=== PATIENT | female | born 1955 | race Caucasian/White ===

== ENCOUNTER → 2016-07-28 16:52 | Outpatient (CLI) | payer MEDICAID ==
[2014-01-20 04:26] VITALS: BMI 20.7
[~2016-07-28 16:52] MED LIST: BACTRIM DS TABL1 TAB PO; HYDROCODONE-APA1 TAB PO
== END | disposition home or self-care (01) ==
LOC: D.MAMMO 07-14 09:30 → D.US 07-14 10:30 → D.MAMMO 07-17 08:30 → D.US 07-17 09:30 → D.MAMMO 13:00
DX: R92.8 Other abnormal and inconclusive findings on diagnostic imaging of breast (principal)

== ENCOUNTER → 2018-07-28 08:40 | Outpatient (CLI) | payer OTHER ==
[2014-01-20 04:26] VITALS: BMI 20.7
== END | disposition home or self-care (01) ==
LOC: D.CT 08:40
DX: J44.9 Chronic obstructive pulmonary disease, unspecified (principal)

== ENCOUNTER 2018-11-27 17:02 | Emergency (ER) | payer OTHER ==
[~2018-11-27] VITALS: Ht 175.3 cm; Wt 52.3 kg
[2018-11-27 17:03] VITALS: Ht 175.3 cm; Wt 52.3 kg
[2018-11-27] MEDS ORDERED: BUSPIRONE HCL30 MG PO (17:05)
[2018-11-27] MEDS ORDERED: DIFLUCAN200 MG PO (17:05)
[2018-11-27] MEDS ORDERED: CELEXA40 MG PO (17:06)
[2018-11-27 18:14] LABS: BASOPHILS 0.4 % (0-2); EOSINOPHILS 1.6 % (0-7); HEMOGLOBIN 12.9 g/dL (12-16); IMMATURE GRANULOCYTES 0.1 % (0-5); LYMPHOCYTES 25.5 % (15-50); MCH 30.9 pg (26.0-34.0); MCHC 34.9 g/dL (31.0-37.0); MCV 88.5 fL (80.0-100.0); MEAN PLATELET VOLUME 9.4 fL (7.4-10.4); MONOCYTES 7.9 % (2-11); NEUTROPHILS 64.5 % (40-80); PLATELET COUNT 185 10x3/uL (130-400); RBC 4.18 10x6/uL (4.00-5.40); RDW 14.3 % (11.5-14.5); WBC 8.3 10x3/uL (4.8-10.8)
[2018-11-27 18:30] LABS: ALBUMIN 3.8 g/dL (3.4-5.0); ALKALINE PHOSPHATASE 63 U/L (46-116); ALT (SGPT) 27 U/L (10-68); BILIRUBIN - TOTAL 1.49 mg/dL (0.2-1.3); CALC OSMOLALITY 260 mosm/kg (275-300); CALCIUM 9.1 mg/dL (8.5-10.1); CARBON DIOXIDE 24.8 mmol/L (21.0-32.0); CHLORIDE - SERUM 97 mmol/L (98-107); CREATININE - SERUM 0.8 mg/dL (0.6-1.3); GLUCOSE 99 mg/dL (74-106); POTASSIUM - SERUM 3.4 mmol/L (3.5-5.1); SODIUM 129 mmol/L (136-145); UREA NITROGEN 17 mg/dL (7-18); eGFR NON AFRICAN AMERICAN 76 mL/min (90-120)
[2018-11-27 19:36] LABS: APPEARANCE CLEAR (CLEAR); BILIRUBIN NEGATIVE (NEGATIVE); COLOR STRAW (YELLOW); GLUCOSE NEGATIVE (NEGATIVE); KETONE NEGATIVE (NEGATIVE); NITRITE POSITIVE (NEGATIVE); PROTEIN NEGATIVE (NEGATIVE); SPECIFIC GRAVITY 1.005 (1.005-1.020); UROBILINOGEN NORMAL (NORMAL)
[2018-11-27 19:38] LABS: BACTERIA FEW /hpf (NONE SEEN); RED CELLS - URINE 0-5 /hpf (0-5)
[2018-11-27 20:06] LABS: UDS - AMPHET POSITIVE QUAL (NEGATIVE); UDS - BARB NEGATIVE QUAL (NEGATIVE); UDS - BENZO NEGATIVE QUAL (NEGATIVE); UDS - COCAINE NEGATIVE QUAL (NEGATIVE); UDS - OPIATE NEGATIVE QUAL (NEGATIVE); UDS - PCP NEGATIVE QUAL (NEGATIVE); UDS - THC NEGATIVE QUAL (NEGATIVE)
[2018-11-27] MEDS ORDERED: CIPRO500 MG PO (20:08)
[2018-11-27 22:22] VITALS: BP 139/96
== END 2018-11-27 22:08 | disposition home or self-care (01) ==
LOC: D.ER 17:02
PROVIDERS: Emergency Medicine
DX: R45.851 Suicidal ideations (principal); F32.9 Major depressive disorder, single episode, unspecified; F15.10 Other stimulant abuse, uncomplicated; F22 Delusional disorders

== ENCOUNTER 2018-12-09 15:07 | Inpatient (IN) | payer OTHER, MEDICAID ==
[~2018-12-09 15:07] MED LIST changes: +BUSPIRONE HCL30 MG PO; +CELEXA40 MG PO; +CIPRO500 MG PO; +DIFLUCAN200 MG PO
[2018-12-09] MEDS ORDERED: DICLOFENAC SODI50 MG PO (15:14)
[2018-12-09 15:46] LABS: BASOPHILS 0.3 % (0-2); EOSINOPHILS 0.5 % (0-7); HEMOGLOBIN 11.9 g/dL (12-16); IMMATURE GRANULOCYTES 0.3 % (0-5); LYMPHOCYTES 12.4 % (15-50); MCH 30.7 pg (26.0-34.0); MCV 90.4 fL (80.0-100.0); NEUTROPHILS 83.5 % (40-80); RBC 3.87 10x6/uL (4.00-5.40); WBC 7.8 10x3/uL (4.8-10.8)
[2018-12-09 15:50] LABS: PLATELET COUNT 128 10x3/uL (130-400)
[2018-12-09 16:02] LABS: ALBUMIN 3.3 g/dL (3.4-5.0); ALKALINE PHOSPHATASE 53 U/L (46-116); ALT (SGPT) 43 U/L (10-68); BILIRUBIN - TOTAL 0.26 mg/dL (0.2-1.3); CALC OSMOLALITY 275 mosm/kg (275-300); CALCIUM 8.8 mg/dL (8.5-10.1); CARBON DIOXIDE 27.8 mmol/L (21.0-32.0); CHLORIDE - SERUM 103 mmol/L (98-107); CREATININE - SERUM 0.8 mg/dL (0.6-1.3); GLUCOSE 91 mg/dL (74-106); PROTEIN - SERUM 6.3 g/dL (6.4-8.2); SODIUM 137 mmol/L (136-145); UREA NITROGEN 19 mg/dL (7-18); eGFR NON AFRICAN AMERICAN 76 mL/min (90-120)
[2018-12-09 16:04] LABS: INR 1.19 (0.85-1.17); PROTIME 14.6 SECONDS (11.6-15.0)
[2018-12-09 16:36] LABS: APPEARANCE CLEAR (CLEAR); BILIRUBIN NEGATIVE (NEGATIVE); COLOR YELLOW (YELLOW); GLUCOSE NEGATIVE (NEGATIVE); KETONE NEGATIVE (NEGATIVE); NITRITE NEGATIVE (NEGATIVE); PROTEIN NEGATIVE (NEGATIVE); UROBILINOGEN NORMAL (NORMAL)
[2018-12-09] MEDS ORDERED: TRAZODONE HCL150 MG PO (17:55)
--- NOTE | 2018-12-09 19:35 | NUR ---
PT ALERT AND ORIENTED. PATIENT COMPLAINS OF HIP PAIN. LIMITED ROM NOTED IN THE LOWER RIGHT EXTREMETY. DIMINSHED LUNG SOUNDS BILATERALLY. HAS SCD TO THE LEFT LEG. RIGHT FOREARM IV THAT IS INFUSING NS @ 100. HAS NAVAS CATHETER THAT PRESENTS WITH YELLOW URINE. DENIES FURTHER ISSUES AT THIS TIME.
[2018-12-09 20:11] LABS: CKMB 1.9 U/L (0.0-3.6); CREATINE KINASE 60 UL (21-215); TROPONIN-I < 0.017 ng/mL (0.000-0.060)
[2018-12-09 22:02] LABS: UDS - AMPHET NEGATIVE QUAL (NEGATIVE); UDS - BARB NEGATIVE QUAL (NEGATIVE); UDS - BENZO NEGATIVE QUAL (NEGATIVE); UDS - COCAINE NEGATIVE QUAL (NEGATIVE); UDS - OPIATE POSITIVE QUAL (NEGATIVE); UDS - PCP NEGATIVE QUAL (NEGATIVE); UDS - THC POSITIVE QUAL (NEGATIVE)
[2018-12-10] VITALS (13 sets, daily range): BP systolic 80–152; BP diastolic 55–94; BMI 17.7
[2018-12-10 01:46] LABS: BASOPHILS 0.2 % (0-2); EOSINOPHILS 1.4 % (0-7); HEMATOCRIT 32.5 % (36.0-48.0); HEMOGLOBIN 10.9 g/dL (12-16); IMMATURE GRANULOCYTES 0.2 % (0-5); LYMPHOCYTES 19.4 % (15-50); MCH 30.4 pg (26.0-34.0); MCHC 33.5 g/dL (31.0-37.0); MCV 90.8 fL (80.0-100.0); MEAN PLATELET VOLUME 9.5 fL (7.4-10.4); MONOCYTES 6.7 % (2-11); NEUTROPHILS 72.1 % (40-80); PLATELET COUNT 110 10x3/uL (130-400); RBC 3.58 10x6/uL (4.00-5.40); RDW 14.4 % (11.5-14.5)
[2018-12-10 02:03] LABS: WBC 5.8 10x3/uL (4.8-10.8)
[2018-12-10 02:16] LABS: AMYLASE - SERUM 49 U/L (25-115); CALC OSMOLALITY 286 mosm/kg (275-300); CALCIUM 8.1 mg/dL (8.5-10.1); CARBON DIOXIDE 28.4 mmol/L (21.0-32.0); CHLORIDE - SERUM 108 mmol/L (98-107); CKMB 1.7 U/L (0.0-3.6); CREATINE KINASE 59 UL (21-215); CREATININE - SERUM 0.9 mg/dL (0.6-1.3); GLUCOSE 133 mg/dL (74-106); LIPASE 125 U/L (73-393); MAGNESIUM - SERUM 2.2 mg/dL (1.8-2.4); SODIUM 142 mmol/L (136-145); TROPONIN-I < 0.017 ng/mL (0.000-0.060); UREA NITROGEN 19 mg/dL (7-18); eGFR NON AFRICAN AMERICAN 67 mL/min (90-120)
--- NOTE | 2018-12-10 03:42 | NUR ---
I have reviewed this patient and I concur with the Shift Assessment completed by the Licensed Practical Nurse today this shift.
--- NOTE | 2018-12-10 08:00 | NUR ---
PT RESTING IN BED WITH EYES OPEN CALL LIGHT IN REACH WILL MONITER
[2018-12-10 09:38] LABS: CKMB 1.4 U/L (0.0-3.6); CREATINE KINASE 58 UL (21-215); TROPONIN-I < 0.017 ng/mL (0.000-0.060)
[2018-12-10 12:27] LABS: % SATURATION 22 % (15-55); IRON 57 ug/dl (35-150); TOTAL IRON BIND CAPACITY 248 ug/dl (260-445); UNSAT IRON BIND CAPACITY 191 ug/dl (150-375)
[2018-12-10 12:34] LABS: FERRITIN 103 ng/mL (3-244); LDH 228 U/L (81-234)
--- NOTE | 2018-12-10 15:25 | NUR ---
PT TAKEN TO OR FOR RIGHT HIP REPLACEMENT.
--- NOTE | 2018-12-10 15:42 | NUR ---
I have reviewed this patient and I concur with the Shift Assessment completed by the Licensed Practical Nurse today this shift.
[2018-12-11] VITALS: BP 121/76
--- NOTE | 2018-12-11 03:00 | NUR ---
I have reviewed this patient and I concur with the Shift Assessment completed by the Licensed Practical Nurse today this shift.
[2018-12-11 04:00] VITALS: BP 95/53
[2018-12-11 06:16] LABS: BASOPHILS 0.1 % (0-2); EOSINOPHILS 0.8 % (0-7); HEMATOCRIT 27.4 % (36.0-48.0); IMMATURE GRANULOCYTES 0.3 % (0-5); LYMPHOCYTES 10.7 % (15-50); MCH 30.1 pg (26.0-34.0); MCHC 32.8 g/dL (31.0-37.0); MCV 91.6 fL (80.0-100.0); MEAN PLATELET VOLUME 10.5 fL (7.4-10.4); MONOCYTES 9.6 % (2-11); NEUTROPHILS 78.5 % (40-80); PLATELET COUNT 108 10x3/uL (130-400); RBC 2.99 10x6/uL (4.00-5.40); RDW 14.2 % (11.5-14.5)
[2018-12-11 06:24] LABS: WBC 7.6 10x3/uL (4.8-10.8)
--- NOTE | 2018-12-11 06:29 | OP ---
PATIENT NAME: GLORIA TORRES MEDICAL RECORD: [id number] :51 LOCATION:D.[id number] ADMISSION DATE:12/09/18 SURGEON: SJ JEAN DO DATE OF OPERATION: 12/10/2018 PROCEDURE PERFORMED: Right total hip arthroplasty. PREOPERATIVE DIAGNOSIS: Right displaced femoral neck fracture. POSTOPERATIVE DIAGNOSIS: Right displaced femoral neck fracture. INDICATIONS: Ms. Torres is a 63-year-old female who fell yesterday and fractured her right femoral neck, displaced, and was brought to the ER, seen to have a fracture and was admitted. I informed her due to her activity level, she was pretty active, she would do better with a total hip rather than a nancy hip and that she would be able to get up and walk right away. She was okay with that plan and she is aware of the risks including infection, bleeding, damage to nerves and vessels, need for further surgery, fracture and blood clots and even . She signed the consent. SURGEON: Sj Jean DO DESCRIPTION OF THE PROCEDURE: The patient was taken to the operative suite, laid in the supine position, given general anesthetic and intubated, given a gram of Ancef preoperatively. The patient was then moved over to the [place] table. The right lower extremity was prepped and draped in sterile fashion. Timeout was performed. Everyone was agreeance to correct side, site, patient and procedure. Once that was completed, the incision began over the tensor fascia abdelrahman. Careful dissection was made down to the tensor fascia adbelrahman fascia and the fascia was removed off the muscle and muscle belly was taken posteriorly and fascia anteriorly. Opened up the rectus interval. The rectus interval was then opened. The rectus was taken medially, the tensor fascia abdelrahman laterally. The ascending branch lateral femoral circumflex was then exposed and tied off and then coagulated with the Aquamantys and then cut with the plasma knife. Any other bleeders were coagulated with Aquamantys throughout the whole procedure. The capsule was then exposed with Hohmanns around the neck and a capsulotomy was performed and tagged. The capsule was tagged. Hohmanns were then removed. The 2 retractors were then put inside the capsule and a neck cut was made due to being a very high femoral neck fracture, almost subcapital. This neck cut was then removed and then the femoral head was removed. The pulvinar was then removed out of the acetabulum as well as the labrum from around the edge of the acetabulum and then we began first medializing and then reaming up to 52 for 52 cup, 52 cup was then impacted into place and the liner was impacted in. This seemed to be in good position on the x-ray. The femur was then exposed and began with a canal finder, then cookie cutter and then broaching from 4 up to a 13, 13 was trialed with a -3 neck. This was in very good length compared to the left side with a -3 neck. After this was reduced, we then dislocated it and the 13 stem was a little loose, coming out, and then broached to a 14 and 14 stem was put down and then with a -3 neck with a dual mobility head. This was then reduced and on the x-ray was in good position and visualization had good motion with internal and external rotation. This was then thoroughly irrigated and then with vancomycin, tobramycin powder placed in the wound as well as Surgicel powder. The tensor fascia abdelrahman fascia was then closed with a #1 Vicryl in a running locking stitch. Skin was closed with 2-0 Vicryl in inverted interrupted fashion, 4-0 Monocryl running on skin and Prineo placed, glue placed on the OPERATIVE REPORT [id number] GLORIA TORRES skin, then covered with Telfa and Tegaderm. She was awakened and taken to recovery in stable condition. ESTIMATED BLOOD LOSS: Approximately 300 mL. COMPLICATIONS: None. TRANSINT:[id number] Voice Confirmation ID: [id number] DOCUMENT ID: [id number] SJ JEAN DO at 0629 CC: [id number] DICTATION DATE: 12/10/181836 FINANCE LECTURER: 12/10/18 7321 ADM IN [place] [id number] [place] [id number]
[2018-12-11 06:39] LABS: ANION GAP 11.5 mmol/L (8-16); CALCIUM 7.6 mg/dL (8.5-10.1); CARBON DIOXIDE 25.4 mmol/L (21.0-32.0); CREATININE - SERUM 0.9 mg/dL (0.6-1.3); POTASSIUM - SERUM 3.9 mmol/L (3.5-5.1)
--- NOTE | 2018-12-11 08:10 | NUR ---
PT ALERT X 4. BREATH SOUNDS CLEAR BILAT, 3L O2 PER NC. IV TO RIGHT FOREARM, PATENT, DRESSING CDI. DRESSING TO RIGHT HIP CDI. PT REPORTING PAIN OF 1/10, WILL MONITOR. BED LOW, CALL LIGHT IN REACH. NO OTHER NEEDS AT THIS TIME.
[2018-12-11 09:19] VITALS: BP 84/48
[2018-12-11 12:55] VITALS: BP 129/76
[2018-12-11 17:28] VITALS: BP 111/70
--- NOTE | 2018-12-11 19:40 | NUR ---
PT SITTING UP IN BED WITHOUT DISTRESS, ALERT AND ORIENTED. IV LEFT FA INFUSING 1/2NS @ 50. RIGHT HIP DRESSING CDI. SCDS IN PLACE. NAVAS IN PLACE. INITIATING BLADDER TRAINING. BED ALARM ON. O2 3L/NC. CL IN REACH, WILL CTM
[2018-12-11 20:00] VITALS: BP 120/71
--- NOTE | 2018-12-11 20:45 | NUR ---
PT STATES BURNING PAIN IN RIGHT HIP 12/28. GAVE OXY ORDERED. DENIES OTHER NEEDS
--- NOTE | 2018-12-11 22:45 | NUR ---
ASSISTED PT WITH BATH, GOWN CHANGED, REFUSED LINEN CHANGE STATING THEY HAD JUST BEEN CHANGED THIS AFTERNOON. GAVE TORADOL ORDERED FOR PAIN 11/28 AFTER. REQUESTED AND GIVEN ICE CREAM AND WATER. DENIES OTHER NEEDS. CL IN REACH, WILL CTM
[2018-12-12] VITALS: BP 101/63
--- NOTE | 2018-12-12 00:45 | NUR ---
REQUESTED AND GIVEN OXY ORDERED FOR BURNING PAIN / IN RIGHT HIP
[2018-12-12 05:07] VITALS: BP 124/74
[2018-12-12 05:19] LABS: CARBON DIOXIDE 31.2 mmol/L (21.0-32.0); CREATININE - SERUM 0.9 mg/dL (0.6-1.3); POTASSIUM - SERUM 4.2 mmol/L (3.5-5.1)
[2018-12-12 05:23] LABS: BASOPHILS 0.2 % (0-2); EOSINOPHILS 2.4 % (0-7); HEMATOCRIT 23.8 % (36.0-48.0); HEMOGLOBIN 7.8 g/dL (12-16); IMMATURE GRANULOCYTES 0.4 % (0-5); LYMPHOCYTES 20.9 % (15-50); MCH 30.5 pg (26.0-34.0); MCHC 32.8 g/dL (31.0-37.0); MEAN PLATELET VOLUME 10.4 fL (7.4-10.4); MONOCYTES 10.8 % (2-11); NEUTROPHILS 65.3 % (40-80); PLATELET COUNT 96 10x3/uL (130-400); RBC 2.56 10x6/uL (4.00-5.40); RDW 14.5 % (11.5-14.5)
[2018-12-12 05:49] LABS: PLATELET ESTIMATE DECREASED
[2018-12-12 05:50] LABS: PLATELET MORPHOLOGY NORMAL PLT MORPH
[2018-12-12 09:01] VITALS: BP 97/55
[2018-12-12] MEDS ORDERED: ELIQUIS2.5 MG PO (17:05)
[2018-12-12] MEDS ORDERED: OXYCODONE HCL5 M1 PO (17:05)
[2018-12-12] MEDS ORDERED: KEFLEX500 MG PO (17:06)
[2018-12-12] MEDS ORDERED: VISTARIL50 MG PO (17:06)
[2018-12-12 21:12] VITALS: BP 154/95
[2018-12-13 01:12] VITALS: BP 122/71
--- NOTE | 2018-12-13 03:56 | NUR ---
I have reviewed this patient and I concur with the Shift Assessment completed by the Licensed Practical Nurse today this shift.
[2018-12-13 04:45] VITALS: BP 132/81
[2018-12-13 05:54] LABS: BASOPHILS 0.3 % (0-2); EOSINOPHILS 2.2 % (0-7); LYMPHOCYTES 14.4 % (15-50); MCHC 33.2 g/dL (31.0-37.0); MONOCYTES 11.4 % (2-11); NEUTROPHILS 70.7 % (40-80); RDW 18.4 % (11.5-14.5); WBC 5.9 10x3/uL (4.8-10.8)
[2018-12-13 06:16] LABS: ANION GAP 10.2 mmol/L (8-16); CALCIUM 8.4 mg/dL (8.5-10.1); CARBON DIOXIDE 28.4 mmol/L (21.0-32.0); CREATININE - SERUM 0.9 mg/dL (0.6-1.3); POTASSIUM - SERUM 4.6 mmol/L (3.5-5.1)
[2018-12-13 06:18] LABS: HEMATOCRIT 28.9 % (36.0-48.0); HEMOGLOBIN 9.6 g/dL (12-16); MCV 87.3 fL (80.0-100.0); PLATELET COUNT 117 10x3/uL (130-400); RBC 3.31 10x6/uL (4.00-5.40)
[2018-12-13 08:13] LABS: FOLATE (FOLIC ACID) - SERUM 11.5 ng/mL (>3.0)
[2018-12-13 09:29] VITALS: BP 129/88
--- NOTE | 2018-12-13 09:50 | MORECARE ---
CASE MANAGEMENT DISCHARGE SUMMARY PATIENT: GLORIA TORRES HEAVEN UNIT: [id number] ADM DATE: 12/09/18 AGE: 63 : 53 SEX: F ROOM/BED: D.2208 AUTHOR: DELANEY,DOC PHYSICIAN: REFERRING PHYSICIAN: LIZA BOUCHER MD DATE OF SERVICE: 12/13/18 Discharge Plan Patient Name: GLORIA TORRES Facility: [facility]:[place] : 1955 Planned Disposition: Home Health Service Anticipated Discharge Date: Discharge Date: Expected LOS: Initial Reviewer: [id number] Initial Review Date: 12/13/2018 Generated: 12/13/18 10:49 am Comments DCP- Discharge Planning Updated by [email or web address]: Sandy Joy on 12/13/18 8:[address] Patient Name: GLORIA TORRES Admission Status: ER Accout number: [id number] Admission Date: 12-09-2018 : 1955 Admission Diagnosis:OTH FRACTURE OF HEAD AND NECK OF RIGHT FEMUR, INIT Attending: LIZA BOUCHER Current LOS: 4 Anticipated DC Date: Planned Disposition: Home Health Service Primary Insurance: [employer] Discharge Planning Comments: CM MET WITH PATIENT ABOUT DC PLANNING/NEEDS. STATES WILL NEED HH AND A WALKER AND RAISED TOILED. HILDA SIGNED FOR [facility] HH AND [facility] FOR DME. CM WILL FAX DOCUMENTS TO EXTERNAL PROVIDERS. CM TO FOLLOW AND ASSIST NEEDED. Social Media Executive: Sandy Joy DCPIA - Discharge Planning Initial Assessment Updated by [email or web address]: Sandy Joy on 12/13/18 9:45 am * Is the patient Alert and Oriented? Yes * How many steps to enter\exit or inside your home? * PCP NATALIE * [facility] * Preadmission Environment Home Alone * ADLs Independent * List name and contact numbers for known caregivers / representatives who currently or will assist patient after discharge: ZAFAR [phone] * Additional services required to return to the preadmission environment? Yes * Can the patient safely return to the preadmission environment? Yes * Has this patient been hospitalized within the prior 30 days at any hospital? No External Providers [facility] Next Contact Date: Service Request Date: Service Type: Resolution: Reviewer: Comments: External Provider: [facility] Next Contact Date: Service Request Date: Service Type: Resolution: Reviewer: Comments: Patient Name: GLORIA TORRES Page 12112 at 0950 All edits/amendments must be made on the electronic document DICTATION DATE: 12/13/18948 STRATEGIC CONSULTANT: RICHARD 12/13/18948 RPT#: [id number] DC DATE: STATUS: ADM IN [facility] [address] [place] [address] END OF REPORT
[2018-12-13] MEDS ORDERED: Nicoderm [PBKC] TRANSDERM (11:47)
--- NOTE | 2018-12-13 12:02 | MORECARE ---
CASE MANAGEMENT DISCHARGE SUMMARY PATIENT: GLORIA TORRES UNIT: [id number] ADM DATE: 12/09/18 AGE: 63 : 53 SEX: F ROOM/BED: D.2208 AUTHOR: DELANEY,DOC PHYSICIAN: REFERRING PHYSICIAN: LIZA BOUCHER MD DATE OF SERVICE: 12/13/18 Discharge Plan Patient Name: GLORIA TORRES Facility: [facility]:[place] : 1955 Planned Disposition: Home Health Service Anticipated Discharge Date: Discharge Date: Expected LOS: Initial Reviewer: [id number] Initial Review Date: 12/13/2018 Generated: 12/13/18 1:01 pm Comments DCP- Discharge Planning Updated by [email or web address]: Sandy Joy on 12/13/18 8:[address] Patient Name: GLORIA TORRES Admission Status: ER Accout number: [id number] Admission Date: 12-09-2018 : 1955 Admission Diagnosis:OTH FRACTURE OF HEAD AND NECK OF RIGHT FEMUR, INIT Attending: LIZA BOUCHER Current LOS: 4 Anticipated DC Date: Planned Disposition: Home Health Service Primary Insurance: [employer] Discharge Planning Comments: CM MET WITH PATIENT ABOUT DC PLANNING/NEEDS. STATES WILL NEED HH AND A WALKER AND RAISED TOILED. HILDA SIGNED FOR [facility] AND [facility] FOR DME. CM WILL FAX DOCUMENTS TO EXTERNAL PROVIDERS. CM TO FOLLOW AND ASSIST NEEDED. Last Putter Away: Sandy Joy DCPIA - Discharge Planning Initial Assessment Updated by [email or web address]: Sandy Joy on 12/13/18 9:45 am * Is the patient Alert and Oriented? Yes * How many steps to enter\exit or inside your home? * PCP NATALIE * [facility] * Preadmission Environment Home Alone * ADLs Independent * List name and contact numbers for known caregivers / representatives who currently or will assist patient after discharge: ZAFAR [phone] * Additional services required to return to the preadmission environment? Yes * Can the patient safely return to the preadmission environment? Yes * Has this patient been hospitalized within the prior 30 days at any hospital? No Last DP export: 12/13/18 8:49 a Patient Name: GLORIA TORRES Page 72514 at 1202 All edits/amendments must be made on the electronic document DICTATION DATE: 12/13/181200 WAITER/WAITRESS FIRST CLASS: RICHARD 12/13/181200 RPT#: [id number] DC DATE: STATUS: ADM IN [facility] [address] [place] [address] END OF REPORT
--- NOTE | 2018-12-13 12:13 | NUR ---
MORNING ASSESSMENT COMPLETE. SEE ASSESSMENT FLOWSHEET FOR FURHTER DETAILS. PT LYING IN BED AAO X4 TO PERSON, PLACE, TIME, AND SITUATION. DENIES NEEDS AT THIS TIME. CL IN REACH. SIDE RAILS UP X3 FOR PT SAFETY. BED IN LOWEST POSITION.
--- NOTE | 2018-12-13 12:26 | MORECARE ---
CASE MANAGEMENT DISCHARGE SUMMARY PATIENT: GLORIA TORRES HEAVEN UNIT: [id number] ADM DATE: 12/09/18 AGE: 63 : 53 SEX: F ROOM/BED: D.2208 AUTHOR: DELANEY,DOC PHYSICIAN: REFERRING PHYSICIAN: LIZA BOUCHER MD DATE OF SERVICE: 12/13/18 Discharge Plan Patient Name: GLORIA TORRES Facility: [facility]:[place] : 1955 Planned Disposition: Home Health Service Anticipated Discharge Date: Discharge Date: Expected LOS: Initial Reviewer: [email or web address] Initial Review Date: 12/13/2018 Generated: 12/13/18 1:26 pm Comments DCP- Discharge Planning Updated by [id number]: Sandy Joy on 12/13/18 8:[address] Patient Name: GLORIA TORRES Admission Status: ER Accout number: [id number] Admission Date: 12-09-2018 : 1955 Admission Diagnosis:OTH FRACTURE OF HEAD AND NECK OF RIGHT FEMUR, INIT Attending: LIZA BOUCHER Current LOS: 4 Anticipated DC Date: Planned Disposition: Home Health Service Primary Insurance: Olo Discharge Planning Comments: CM MET WITH PATIENT ABOUT DC PLANNING/NEEDS. STATES WILL NEED HH AND A WALKER AND RAISED TOILED. HILDA SIGNED FOR [facility] AND [facility] FOR DME. CM WILL FAX DOCUMENTS TO EXTERNAL PROVIDERS. CM TO FOLLOW AND ASSIST NEEDED. Food Order Expediter: Sandy Joy DCPIA - Discharge Planning Initial Assessment Updated by [email or web address]: Sandy Joy on 12/13/18 9:45 am * Is the patient Alert and Oriented? Yes * How many steps to enter\exit or inside your home? * PCP NATALIE * [facility] * Preadmission Environment Home Alone * ADLs Independent * List name and contact numbers for known caregivers / representatives who currently or will assist patient after discharge: ZAFAR [phone] * Additional services required to return to the preadmission environment? Yes * Can the patient safely return to the preadmission environment? Yes * Has this patient been hospitalized within the prior 30 days at any hospital? No External Providers External Provider: [facility] Next Contact Date: Service Request Date: Service Type: Resolution: Reviewer: Comments: Last DP export: 12/13/18 11:01 a Patient Name: GLORIA TORRES Page 38873 at 1226 All edits/amendments must be made on the electronic document DICTATION DATE: 12/13/18 1226 ADVERTISING ACCOUNT EXECUTIVE: RICHARD 12/13/18 1226 RPT#: [id number] DC DATE: STATUS: ADM IN [facility] [address] [place] [address] END OF REPORT
--- NOTE | 2018-12-13 12:34 | MORECARE ---
CASE MANAGEMENT DISCHARGE SUMMARY PATIENT: GLORIA TORRES HEAVEN UNIT: [id number] ADM DATE: 12/09/18 AGE: 63 : 53 SEX: F ROOM/BED: D.2205 AUTHOR: DELANEY,DOC PHYSICIAN: REFERRING PHYSICIAN: LIZA BOUCHER MD DATE OF SERVICE: 12/13/18 Discharge Plan Patient Name: GLORIA TORRES Facility: [facility]:[place] : 1955 Planned Disposition: Home Health Service Anticipated Discharge Date: Discharge Date: Expected LOS: Initial Reviewer: [id number] Initial Review Date: 12/13/2018 Generated: 12/13/18 1:34 pm Comments DCP- Discharge Planning Updated by [email or web address]: Sandy Joy on 12/13/18 11:[address] Patient Name: GLORIA TORRES Admission Status: ER Accout number: [id number] Admission Date: 12-09-2018 : 1955 Admission Diagnosis:OTH FRACTURE OF HEAD AND NECK OF RIGHT FEMUR, INIT Attending: LIZA BOUCHER Current LOS: 4 Anticipated DC Date: Planned Disposition: Home Health Service Primary Insurance: [employer] Discharge Planning Comments: CM MET WITH PATIENT ABOUT DC PLANNING/NEEDS. STATES WILL NEED HH AND A WALKER AND RAISED TOILED. HILDA SIGNED FOR [facility] AND [facility] FOR DME. CM WILL FAX DOCUMENTS TO EXTERNAL PROVIDERS. CM TO FOLLOW AND ASSIST NEEDED. Boat Finisher: Sandy Joy Appended by Sandy Joy on 12/13/2018 12:29 CDT: REFERRAL FAXED TO [facility] FOR DME OF WALKER, WAITING CALL BACKS. DCPIA - Discharge Planning Initial Assessment Updated by [email or web address]: Sandy Joy on 12/13/18 9:45 am * Is the patient Alert and Oriented? Yes * How many steps to enter\exit or inside your home? * PCP NATALIE * [facility] * Preadmission Environment Home Alone * ADLs Independent * List name and contact numbers for known caregivers / representatives who currently or will assist patient after discharge: ZAFAR, * Additional services required to return to the preadmission environment? Yes * Can the patient safely return to the preadmission environment? Yes * Has this patient been hospitalized within the prior 30 days at any hospital? No Last DP export: 12/13/18 11:26 a Patient Name: GLORIA TORRES Page 74221 at 1234 All edits/amendments must be made on the electronic document DICTATION DATE: 12/13/18 1234 SENIOR INFRASTRUCTURE ARCHITECT: RICHARD 12/13/18 1234 RPT#: [id number] DC DATE: STATUS: ADM IN [facility] [address] [place] [address] END OF REPORT
--- NOTE | 2018-12-13 13:06 | MORECARE ---
CASE MANAGEMENT DISCHARGE SUMMARY PATIENT: GLORIA TORRES HEAVEN UNIT: [id number] ADM DATE: 12/09/18 AGE: 63 : 53 SEX: F ROOM/BED: D.7112 AUTHOR: DELANEY,DOC PHYSICIAN: REFERRING PHYSICIAN: LIZA BOUCHER MD DATE OF SERVICE: 12/13/18 Discharge Plan Patient Name: GLORIA TORRES Facility: [facility]:[place] : 1955 Planned Disposition: Home Health Service Anticipated Discharge Date: Discharge Date: Expected LOS: Initial Reviewer: [email or web address] Initial Review Date: 12/13/2018 Generated: 12/13/18 2:05 pm Comments DCP- Discharge Planning Updated by [email or web address]: Sandy Joy on 12/13/18 12:[address] Patient Name: GLORAI TORRES Admission Status: ER Accout number: [id number] Admission Date: 12-09-2018 : 1955 Admission Diagnosis:OTH FRACTURE OF HEAD AND NECK OF RIGHT FEMUR, INIT Attending: LIZA BOUCHER Current LOS: 4 Anticipated DC Date: Planned Disposition: Home Health Service Primary Insurance: [employer] Discharge Planning Comments: CM MET WITH PATIENT ABOUT DC PLANNING/NEEDS. STATES WILL NEED HH AND A WALKER AND RAISED TOILED. HILDA SIGNED FOR [facility] AND [facility] FOR DME. CM WILL FAX DOCUMENTS TO EXTERNAL PROVIDERS. CM TO FOLLOW AND ASSIST NEEDED. Paper Cleaner: Sandy Joy Appended by Sandy Joy on 12/13/2018 12:29 CDT: REFERRAL FAXED TO [facility] FOR DME OF WALKER, WAITING CALL BACKS. Appended by Sandy Joy on 12/13/2018 13:00 CDT: [facility] WILL SEE TOMORROW OR WEDNESDAY. PATIENT CAN TANK TRUCK MILK RECEIVER WALKER FROM [facility] TODAY, THEY WILL HAVE IT READY. DCPIA - Discharge Planning Initial Assessment Updated by [email or web address]: Sandy Joy on 12/13/18 9:45 am * Is the patient Alert and Oriented? Yes * How many steps to enter\exit or inside your home? * PCP NATALIE * [facility] * Preadmission Environment Home Alone * ADLs Independent * List name and contact numbers for known caregivers / representatives who currently or will assist patient after discharge: ZAFAR, * Additional services required to return to the preadmission environment? Yes * Can the patient safely return to the preadmission environment? Yes * Has this patient been hospitalized within the prior 30 days at any hospital? No Last DP export: 12/13/18 11:34 a Patient Name: GLORIA TORRES Page 15914 at 1306 All edits/amendments must be made on the electronic document DICTATION DATE: 12/13/18 1305 CASINO DEALER: RICHARD 12/13/18 1305 RPT#: [id number] DC DATE: STATUS: ADM IN [facility] [address] [place] [address] END OF REPORT
[2018-12-13 13:42] VITALS: BP 110/75
[2018-12-13 15:12] LABS: SPE - A/G RATIO 1.3 (0.7-1.7); SPE - ALBUMIN 2.8 g/dL (2.9-4.4); SPE - ALPHA-1 GLOBULIN 0.2 g/dL (0.0-0.4); SPE - ALPHA-2 GLOBULIN 0.6 g/dL (0.4-1.0); SPE - BETA GLOBULIN 0.7 g/dL (0.7-1.3); SPE - GAMMA GLOBULIN 0.7 g/dL (0.4-1.8); SPE - M-SPIKE Not Observed g/dL (Not Observed)
--- NOTE | 2018-12-13 16:00 | NUR ---
PT D/C HOME VIA W/C WITH FRIEND. WENT OVER ALL D/C INSTRUCTIONS. PT STATES UNDERSTANDING
--- NOTE | 2018-12-14 08:00 | MORECARE ---
CASE MANAGEMENT DISCHARGE SUMMARY PATIENT: GLORIA TORRES HEAVEN UNIT: [id number] ADM DATE: 12/09/18 AGE: 63 : 51 SEX: F ROOM/BED: D.3683 AUTHOR: DELANEY,DOC PHYSICIAN: REFERRING PHYSICIAN: LIZA BOUCHER MD DATE OF SERVICE: 12/14/18 Discharge Plan Patient Name: GLORIA TORRES Facility: [facility]:[place] : 1955 Planned Disposition: Home Health Service Anticipated Discharge Date: Discharge Date: 12/13/2018 Expected LOS: Initial Reviewer: [email or web address] Initial Review Date: 12/13/2018 Generated: 12/14/18 9:00 am Comments DCP- Discharge Planning Updated by [email or web address]: Sandy Joy on 12/13/18 12:[address] Patient Name: GLORIA TORRES Admission Status: ER Accout number: [id number] Admission Date: 12-09-2018 : 1955 Admission Diagnosis:OTH FRACTURE OF HEAD AND NECK OF RIGHT FEMUR, INIT Attending: LIZA BOUCHER Current LOS: 4 Anticipated DC Date: Planned Disposition: Home Health Service Primary Insurance: [employer] Discharge Planning Comments: CM MET WITH PATIENT ABOUT DC PLANNING/NEEDS. STATES WILL NEED HH AND A WALKER AND RAISED TOILED. HILDA SIGNED FOR [facility] AND [facility] FOR DME. CM WILL FAX DOCUMENTS TO EXTERNAL PROVIDERS. CM TO FOLLOW AND ASSIST NEEDED. Lease Administration Analyst: Sandy Joy Appended by Sandy Joy on 12/13/2018 12:29 CDT: REFERRAL FAXED TO [facility] FOR DME OF WALKER, WAITING CALL BACKS. Appended by Sandy Joy on 12/13/2018 13:00 CDT: [facility] WILL SEE TOMORROW OR WEDNESDAY. PATIENT CAN LEASING CONSULTANT WALKER FROM [facility] TODAY, THEY WILL HAVE IT READY. DCPIA - Discharge Planning Initial Assessment Updated by [email or web address]: Sandy Joy on 12/13/18 9:45 am * Is the patient Alert and Oriented? Yes * How many steps to enter\exit or inside your home? * PCP NATALIE * [facility] * Preadmission Environment Home Alone * ADLs Independent * List name and contact numbers for known caregivers / representatives who currently or will assist patient after discharge: ZAFAR, * Additional services required to return to the preadmission environment? Yes * Can the patient safely return to the preadmission environment? Yes * Has this patient been hospitalized within the prior 30 days at any hospital? No Last DP export: 12/13/18 12:05 p Patient Name: GLORIA TORRES Page 13387 at 0800 All edits/amendments must be made on the electronic document DICTATION DATE: 12/14/18 08 WARP SCOURING VAT TENDER: RICHARD 12/14/18 0800 RPT#: [id number] DC DATE:12/13/18 STATUS: DIS IN [facility] [address] [place] [address] END OF REPORT
== END 2018-12-13 16:03 | disposition home health service (06) | DRG 470 ==
LOC: D.ER 15:07 → D.MS 16:46
PROVIDERS: Family Medicine; Orthopaedic Surgery; ADMIT Internal Medicine Nephrology; ATTEND Internal Medicine Nephrology
PROC: 0SR90JZ Replacement of Right Hip Joint with Synthetic Substitute, Open Approach (ICD-10-PCS; principal; 2018-12-10 11:00)
DX: S72.091A Other fracture of head and neck of right femur, initial encounter for closed fracture (principal); N17.9 Acute kidney failure, unspecified; F17.213 Nicotine dependence, cigarettes, with withdrawal; K74.60 Unspecified cirrhosis of liver; D64.9 Anemia, unspecified; J44.9 Chronic obstructive pulmonary disease, unspecified; F41.8 Other specified anxiety disorders

== ENCOUNTER 2018-12-23 09:36 | Emergency (ER) | payer OTHER, MEDICAID ==
[~2018-12-23] VITALS: Ht 175.3 cm; Wt 62.7 kg
[~2018-12-23 09:36] MED LIST changes: +DICLOFENAC SODI50 MG PO; +ELIQUIS2.5 MG PO; +KEFLEX500 MG PO; +Nicoderm [PBKC] TRANSDERM; +OXYCODONE HCL5 M1 PO; +TRAZODONE HCL150 MG PO; +VISTARIL50 MG PO
[2018-12-23 09:53] VITALS: Ht 175.3 cm; Wt 62.7 kg
[2018-12-23 10:41] LABS: ALBUMIN 3.5 g/dL (3.4-5.0); ANION GAP 10.5 mmol/L (8-16); BILIRUBIN - TOTAL 0.28 mg/dL (0.2-1.3); CALCIUM 9.1 mg/dL (8.5-10.1); CARBON DIOXIDE 30.3 mmol/L (21.0-32.0); CREATININE - SERUM 0.9 mg/dL (0.6-1.3); POTASSIUM - SERUM 3.8 mmol/L (3.5-5.1); PROTEIN - SERUM 7.5 g/dL (6.4-8.2)
[2018-12-23 11:02] LABS: BASOPHILS 0.4 % (0-2); EOSINOPHILS 3.4 % (0-7); HEMOGLOBIN 10.9 g/dL (12-16); IMMATURE GRANULOCYTES 0.4 % (0-5); LYMPHOCYTES 24.2 % (15-50); MCH 29.2 pg (26.0-34.0); MCHC 32.1 g/dL (31.0-37.0); MCV 91.2 fL (80.0-100.0); MEAN PLATELET VOLUME 9.7 fL (7.4-10.4); MONOCYTES 8.6 % (2-11); RBC 3.73 10x6/uL (4.00-5.40); RDW 16.9 % (11.5-14.5); WBC 5.6 10x3/uL (4.8-10.8)
[2018-12-23 11:04] LABS: PLATELET COUNT 227 10x3/uL (130-400)
[2018-12-23 11:51] VITALS: BP 118/68
== END 2018-12-23 11:52 | disposition home or self-care (01) ==
LOC: D.ER 09:36
PROVIDERS: Emergency Medicine
DX: L76.32 Postprocedural hematoma of skin and subcutaneous tissue following other procedure (principal); D64.9 Anemia, unspecified; M25.551 Pain in right hip

== ENCOUNTER → 2018-12-28 16:37 | Outpatient (CLI) | payer OTHER, MEDICAID ==
[2018-12-23 09:53] VITALS: BMI 20.4
[2018-12-30 14:09] LABS: FUNGUS STAIN Final report (())
[2019-01-04 11:10] LABS: FUNGUS MYCOLOGY CULTURE Preliminary report (())
== END | disposition home or self-care (01) ==
LOC: D.LABREF 16:37
PROVIDERS: ATTEND Orthopaedic Surgery
DX: R22.9 Localized swelling, mass and lump, unspecified (principal)

== ENCOUNTER 2019-02-06 13:55 | Inpatient (IN) | payer OTHER, MEDICAID ==
[~2019-02-06] VITALS: Ht 175.3 cm; Wt 61.2 kg
[2019-02-06] MEDS ORDERED: BAYER CHEWABLE81 MG PO (14:48)
[2019-02-06] MEDS ORDERED: DICLOFENAC SODI50 MG PO (14:49)
[2019-02-06 15:00] VITALS: BP 160/89
[2019-02-06 15:30] VITALS: BP 179/92
[2019-02-06 15:54] LABS: BASOPHILS 0.1 % (0-2); EOSINOPHILS 1.9 % (0-7); HEMATOCRIT 39.8 % (36.0-48.0); HEMOGLOBIN 13.6 g/dL (12-16); IMMATURE GRANULOCYTES 0.1 % (0-5); LYMPHOCYTES 14.5 % (15-50); MCH 30.8 pg (26.0-34.0); MCHC 34.2 g/dL (31.0-37.0); MEAN PLATELET VOLUME 11.4 fL (7.4-10.4); MONOCYTES 7.8 % (2-11); NEUTROPHILS 75.6 % (40-80); RBC 4.42 10x6/uL (4.00-5.40); RDW 14.6 % (11.5-14.5)
[2019-02-06 16:00] VITALS: BP 164/100
[2019-02-06 16:11] LABS: APTT 31.5 SECONDS (22.8-39.4); INR 1.13 (0.85-1.17)
[2019-02-06 16:17] LABS: ALBUMIN 3.2 g/dL (3.4-5.0); ALKALINE PHOSPHATASE 86 U/L (46-116); ALT (SGPT) 26 U/L (10-68); BILIRUBIN - TOTAL 0.52 mg/dL (0.2-1.3); CALC OSMOLALITY 278 mosm/kg (275-300); CALCIUM 8.9 mg/dL (8.5-10.1); CARBON DIOXIDE 30.9 mmol/L (21.0-32.0); CHLORIDE - SERUM 105 mmol/L (98-107); CREATININE - SERUM 0.7 mg/dL (0.6-1.3); GLUCOSE 117 mg/dL (74-106); PLATELET COUNT 116 10x3/uL (130-400); POTASSIUM - SERUM 4.3 mmol/L (3.5-5.1); PROTEIN - SERUM 6.6 g/dL (6.4-8.2); SODIUM 140 mmol/L (136-145); UREA NITROGEN 9 mg/dL (7-18); eGFR NON AFRICAN AMERICAN 89 mL/min (90-120)
[2019-02-06 16:30] VITALS: BP 163/86
--- NOTE | 2019-02-06 18:27 | MORECARE ---
CASE MANAGEMENT DISCHARGE SUMMARY PATIENT: GLORIA TORRES HEAVEN UNIT: [id number] ADM DATE: 02/06/19 AGE: 63 : 53 SEX: F ROOM/BED: D.2239 AUTHOR: VINEET BALTAZAR PHYSICIAN: REFERRING PHYSICIAN: HUSSAIN TREVIÑO DO DATE OF SERVICE: 02/06/19 Discharge Plan Patient Name: GLORIA TORRES [facility] : 1955 Planned Disposition: Home Anticipated Discharge Date: 02/09/19 Discharge Date: Expected LOS: 3 Initial Reviewer: [email or web address] Initial Review Date: 02/06/2019 Generated: 02/06/19 7:26 pm Patient Name: GLORIA TORRES Page 90129 at 1827 All edits/amendments must be made on the electronic document DICTATION DATE: 02/06/191825 MILK INSPECTOR: RICHARD 02/06/191825 RPT#: [id number] DC DATE: STATUS: ADM IN [facility] [address] [place] [address] END OF REPORT
--- NOTE | 2019-02-06 18:34 | MORECARE ---
CASE MANAGEMENT DISCHARGE SUMMARY PATIENT: GLORIA TORRES UNIT: [id number] ADM DATE: 02/06/19 AGE: 63 : 53 SEX: F ROOM/BED: D.2239 AUTHOR: VINEET BALTAZAR PHYSICIAN: REFERRING PHYSICIAN: HUSSAIN TREVIÑO DO DATE OF SERVICE: 02/06/19 Discharge Plan Patient Name: GLORIA TORRES Facility: [facility]:[place] : 1955 Planned Disposition: Home Anticipated Discharge Date: 02/09/19 Discharge Date: Expected LOS: 3 Initial Reviewer: [email or web address] Initial Review Date: 02/06/2019 Generated: 02/06/19 7:34 pm DCP- Discharge Planning Updated by [email or web address]: Yamel Patino on 02/06/19 5:[address] Patient Name: GLORIA TORRES Admission Status: ER Accout number: [id number] Admission Date: 02-06-2019 : 1955 Admission Diagnosis: Attending: HUSSAIN TREVIÑO Current LOS: 1 Anticipated DC Date: 02-09-2019 Planned Disposition: Home Primary Insurance: [employer] Discharge Planning Comments: DC PLAN: Return home with her room mates. ANTICIPATED DC NEEDS: Denied known dc needs at this time. CM met with patient to complete initial dc planning assessment. CM educated patient on the CM role and verbal consent given by patient to complete assessment. CM verified patient's address, phone number, and emergency contact phone numbers. Patient lives at home with room mates. She reports she is independent in her care at home. At discharge patient plans to return home with her room mates and feels this is a safe discharge. CM discussed availability of home health, rehab services, and medical equipment. Patient denied known discharge needs at this time. Patient reports one of her room mates will transport her home at time of discharge. CM will continue to follow and will assist as needed with dc plans/needs. Operater: Yamel Patino RN,[facility] DCPIA - Discharge Planning Initial Assessment Updated by [email or web address]: Yamel Patino on 02/06/19 6:29 pm * Is the patient Alert and Oriented? Yes * PCP Dr. Amador * Pharmacy [facility] on [address]/[facility] * Preadmission Environment Home with Family * ADLs Independent * Equipment Rolling Walker * List name and contact numbers for known caregivers / representatives who currently or will assist patient after discharge: Enrique Mclain - [employer] - [phone] * Verbal permission to speak to the caregivers and representatives has been obtained from the patient. Yes * Community resources currently utilized None * Additional services required to return to the preadmission environment? No * Can the patient safely return to the preadmission environment? Yes * Has this patient been hospitalized within the prior 30 days at any hospital? No Last DP export: 02/06/19 5:27 p Patient Name: GLORIA TORRES Page 69689 at 1834 All edits/amendments must be made on the electronic document DICTATION DATE: 02/06/191833 TORCH BURNER: RICHARD 02/06/191833 RPT#: [id number] DC DATE: STATUS: ADM IN [facility] [address] [place] [address] END OF REPORT
[2019-02-06 21:15] VITALS: BP 178/88
[2019-02-06 23:31] VITALS: BP 178/88; BMI 19.9
[2019-02-07 01:53] VITALS: BP 173/81
[2019-02-07 05:36] VITALS: BP 149/85
[2019-02-07 06:54] LABS: BASOPHILS 0.1 % (0-2); HEMATOCRIT 37.6 % (36.0-48.0); HEMOGLOBIN 12.8 g/dL (12-16); IMMATURE GRANULOCYTES 0.1 % (0-5); LYMPHOCYTES 9.6 % (15-50); MCH 30.2 pg (26.0-34.0); MCV 88.7 fL (80.0-100.0); MONOCYTES 8.9 % (2-11); NEUTROPHILS 80.3 % (40-80); PLATELET COUNT 109 10x3/uL (130-400); RBC 4.24 10x6/uL (4.00-5.40); RDW 14.3 % (11.5-14.5); WBC 7.6 10x3/uL (4.8-10.8)
[2019-02-07 07:10] LABS: ALBUMIN 3.1 g/dL (3.4-5.0); ALKALINE PHOSPHATASE 78 U/L (46-116); BILIRUBIN - TOTAL 0.71 mg/dL (0.2-1.3); CALC OSMOLALITY 276 mosm/kg (275-300); CALCIUM 8.8 mg/dL (8.5-10.1); CARBON DIOXIDE 27.2 mmol/L (21.0-32.0); CHLORIDE - SERUM 104 mmol/L (98-107); CREATININE - SERUM 0.6 mg/dL (0.6-1.3); GLUCOSE 125 mg/dL (74-106); POTASSIUM - SERUM 3.7 mmol/L (3.5-5.1); PROTEIN - SERUM 6.5 g/dL (6.4-8.2); SODIUM 139 mmol/L (136-145); UREA NITROGEN 7 mg/dL (7-18); eGFR NON AFRICAN AMERICAN > 90 mL/min (90-120)
[2019-02-07 07:12] LABS: ALT (SGPT) 19 U/L (10-68)
--- NOTE | 2019-02-07 07:46 | NUR ---
ALERT AND ORIENTED. LUNGS CLEAR BILATERALLY IN ALL HARRISON. HEART SOUNDS S1 AND S2 HEARD IN ALL HARRISON. BOWEL SOUNDS ACTIVE X 4. SKIN INTACT WITHOUT REDNESS. DENIES PAIN. DENIES NEEDS. BED LOW. FALL PRECAUTIONS IN PLACE. CALL VARGAS AND PERSONAL ITEMS IN REACH. WILL CONTINUE TO MONITOR.
[2019-02-07 08:21] LABS: UDS - AMPHET NEGATIVE QUAL (NEGATIVE); UDS - BARB NEGATIVE QUAL (NEGATIVE); UDS - BENZO NEGATIVE QUAL (NEGATIVE); UDS - COCAINE NEGATIVE QUAL (NEGATIVE); UDS - OPIATE NEGATIVE QUAL (NEGATIVE); UDS - PCP NEGATIVE QUAL (NEGATIVE); UDS - THC NEGATIVE QUAL (NEGATIVE)
[2019-02-07 08:59] VITALS: BP 135/93
[2019-02-07 09:02] LABS: APPEARANCE HAZY (CLEAR); BILIRUBIN NEGATIVE (NEGATIVE); COLOR YELLOW (YELLOW); GLUCOSE NEGATIVE (NEGATIVE); KETONE NEGATIVE (NEGATIVE); NITRITE NEGATIVE (NEGATIVE); PROTEIN NEGATIVE (NEGATIVE); RED CELLS - URINE 0-5 /hpf (0-5); SPECIFIC GRAVITY 1.005 (1.005-1.020); UROBILINOGEN NORMAL (NORMAL); WHITE CELLS - URINE OCC /hpf (0-5)
[2019-02-07 09:03] LABS: BACTERIA FEW /hpf (NONE SEEN); EPITHELIAL CELLS OCC /hpf (0-5)
--- NOTE | 2019-02-07 10:37 | NUR ---
TELEMETRY PLACED ON PATIENT. RUNNING 81 SR WITH OCCASIONAL PVCS
--- NOTE | 2019-02-07 10:41 | NUR ---
RESTING IN BED. DENIES PAIN. DENIES NEEDS. WILL CONTINUE TO MONITOR.
[2019-02-07 12:12] VITALS: Ht 175.3 cm; Wt 61.2 kg
--- NOTE | 2019-02-07 12:35 | NUR ---
PATIENT SLEEPING. WILL CONTINUE TO MONITOR.
[2019-02-07 14:23] VITALS: BP 168/99
--- NOTE | 2019-02-07 14:53 | NUR ---
PREOP MEDICATIONS GIVEN PER ORDER.
--- NOTE | 2019-02-07 15:36 | NUR ---
RESTING IN BED. WAITING SURGERY. DENIES NEEDS. WILL CONTINUE TO MONITOR.
--- NOTE | 2019-02-07 16:30 | NUR ---
TAKEN FOR PROCEDURE.
[2019-02-07 17:51] VITALS: BP 157/87
--- NOTE | 2019-02-07 18:19 | NUR ---
PLASMA BLADE SET TO 6/8 BOVIE PAD LEFT THIGH [id number] EXP 09/05/20
--- NOTE | 2019-02-07 19:37 | NUR ---
remains in surgery at present time durin walking rounds.
[2019-02-08] VITALS (8 sets, daily range): BP systolic 105–133; BP diastolic 52–86
--- NOTE | 2019-02-08 06:09 | NUR ---
I have reviewed this patient and I concur with the Shift Assessment completed by the Licensed Practical Nurse today this shift.
--- NOTE | 2019-02-08 07:05 | NUR ---
REPORT RECEIVED. PT LAYING IN BED. PT HAS NAVAS. SOME STIFFNESS AND PAIN TO RIGHT LEG. POD 1 FROM ORIF TO RIGHT FEMUR. PT HAS ARIEL HOSE AND SCDS ON. SHE IS WEARING O2 AT 2L VIA NC. SHE HAS AN IV TO HER RIGHT HAND. SHE IS ON TELEMETRY AND IS 92 SINUS WITH FREQUENT PVCS. BED IN LOWEST POSITION. SIDE RAILS UP X2. CALL LIGHT IN REACH.
[2019-02-08 07:38] LABS: BASOPHILS 0.1 % (0-2); EOSINOPHILS 0 % (0-7); HEMATOCRIT 31.8 % (36.0-48.0); HEMOGLOBIN 11.3 g/dL (12-16); IMMATURE GRANULOCYTES 0.2 % (0-5); LYMPHOCYTES 6.4 % (15-50); MCH 29.8 pg (26.0-34.0); MCHC 35.5 g/dL (31.0-37.0); NEUTROPHILS 85.3 % (40-80); RBC 3.79 10x6/uL (4.00-5.40); RDW 15.5 % (11.5-14.5)
[2019-02-08 07:45] LABS: MCV 83.9 fL (80.0-100.0); PLATELET COUNT 147 10x3/uL (130-400); WBC 12.6 10x3/uL (4.8-10.8)
[2019-02-08 08:03] LABS: ALBUMIN 2.5 g/dL (3.4-5.0); ALKALINE PHOSPHATASE 53 U/L (46-116); ALT (SGPT) 20 U/L (10-68); BILIRUBIN - TOTAL 0.95 mg/dL (0.2-1.3); CALC OSMOLALITY 269 mosm/kg (275-300); CALCIUM 7.8 mg/dL (8.5-10.1); CARBON DIOXIDE 26.2 mmol/L (21.0-32.0); CHLORIDE - SERUM 100 mmol/L (98-107); CREATININE - SERUM 0.7 mg/dL (0.6-1.3); GLUCOSE 135 mg/dL (74-106); MAGNESIUM - SERUM 1.3 mg/dL (1.8-2.4); POTASSIUM - SERUM 4.1 mmol/L (3.5-5.1); PROTEIN - SERUM 5.5 g/dL (6.4-8.2); SODIUM 134 mmol/L (136-145); UREA NITROGEN 13 mg/dL (7-18); eGFR NON AFRICAN AMERICAN 89 mL/min (90-120)
--- NOTE | 2019-02-08 09:30 | NUR ---
PAIN MEDICATION GIVEN WITH AM MEDS. PT SITTING UP ON PHONE WHEN WALKED INTO ROOM THEN STARTED CRYING WHEN I TOLD HER WHAT PAIN MEDICATION AND DOSE WAS GIVING HER. TOLD PT TO LET ME KNOW IF SHE CONTINUED TO HURT. WILL MONITOR.
[2019-02-08] MEDS ORDERED: CHRONULAC30 ML PO (11:06)
--- NOTE | 2019-02-08 11:10 | NUR ---
PT STATED HER PAIN LEVEL HAS DECREASED. WILL CONTINUE TO MONITOR. GAVE HER SOME MAGNESIUM PER ELECTROLYTE REPLACEMENT PROTOCOL. MAGNESIUM WAS 1.3 THIS AM.
--- NOTE | 2019-02-08 12:27 | MORECARE ---
CASE MANAGEMENT DISCHARGE SUMMARY PATIENT: GLORIA TORRES HEAVEN UNIT: [id number] ADM DATE: 02/06/19 AGE: 63 : 51 SEX: F ROOM/BED: D.2239 AUTHOR: VINEET BALTAZAR PHYSICIAN: REFERRING PHYSICIAN: HUSSAIN TREVIÑO DO DATE OF SERVICE: 02/08/19 Discharge Plan Patient Name: GLORIA TORRES Facility: [facility]:[place] : 1955 Planned Disposition: Home Anticipated Discharge Date: 02/09/19 Discharge Date: Expected LOS: 3 Initial Reviewer: [email or web address] Initial Review Date: 02/06/2019 Generated: 02/08/19 1:26 pm Comments DCP- Discharge Planning Updated by [email or web address]: Sandy Joy on 02/08/19 11:[address] Patient Name: GLORIA TORRES Admission Status: ER Accout number: [id number] Admission Date: 02-06-2019 : 1955 Admission Diagnosis: Attending: HUSSAIN TREVIÑO Current LOS: 2 Anticipated DC Date: 02-09-2019 Planned Disposition: Home Primary Insurance: [employer] Discharge Planning Comments: PATIENT WOULD LIKE TO RESUME HH WITH [facility]. HILDA SIGNED. Slot Tag Inserter: Sandy Joy DCP- Discharge Planning Updated by [id number]: Yamel Patino on 02/06/19 5:[address] Patient Name: GLORIA TORRES Admission Status: ER Accout number: [id number] Admission Date: 02-06-2019 : 1955 Admission Diagnosis: Attending: HUSSAIN TREVIÑO Current LOS: 1 Anticipated DC Date: 02-09-2019 Planned Disposition: Home Primary Insurance: [employer] Discharge Planning Comments: DC PLAN: Return home with her room mates. ANTICIPATED DC NEEDS: Denied known dc needs at this time. CM met with patient to complete initial dc planning assessment. CM educated patient on the CM role and verbal consent given by patient to complete assessment. CM verified patient's address, phone number, and emergency contact phone numbers. Patient lives at home with room mates. She reports she is independent in her care at home. At discharge patient plans to return home with her room mates and feels this is a safe discharge. CM discussed availability of home health, rehab services, and medical equipment. Patient denied known discharge needs at this time. Patient reports one of her room mates will transport her home at time of discharge. CM will continue to follow and will assist as needed with dc plans/needs. Slot Tag Inserter: Yamel Patino RN,[facility] DCPIA - Discharge Planning Initial Assessment Updated by [id number]: Yamel Patino on 02/06/19 6:29 pm * Is the patient Alert and Oriented? Yes * PCP Dr. Amador * Pharmacy [facility] on [address]/[facility] * Preadmission Environment Home with Family * ADLs Independent * Equipment Rolling Walker * List name and contact numbers for known caregivers / representatives who currently or will assist patient after discharge: Enrique Mclain [facility] - [phone] * Verbal permission to speak to the caregivers and representatives has been obtained from the patient. Yes * Community resources currently utilized None * Additional services required to return to the preadmission environment? No * Can the patient safely return to the preadmission environment? Yes * Has this patient been hospitalized within the prior 30 days at any hospital? No Coverage Notice Reviewer: [id number] Jessi Joy Notice Issued Date-Time: 02/08/2019 12:18 Notice Type: Patient Choice Letter Notice Delivered To: Patient Relationship to Patient: Electro Mechanical Engineer Name: Delivery Method: HAND - Hand Delivered Leti Days: Prior Verbal Notification: Recipient Understood Notice: Yes Recipient Signature: Yes Med Rec Note Co-signed by Attending: Coverage Notice Comment: HILDA SON Last DP export: 02/06/19 5:34 p Patient Name: GLORIA TORRES Page [id number] at 1227 All edits/amendments must be made on the electronic document DICTATION DATE: 02/08/19 1226 DESIGN LEAD: RICHARD 02/08/19 1226 RPT#: [id number] DC DATE: STATUS: ADM IN [facility] [address] [place] [address] END OF REPORT
--- NOTE | 2019-02-08 14:31 | OP ---
PATIENT NAME: GLORIA TORRES MEDICAL RECORD: [id number] :[birth year] LOCATION:D.MS [id number] ADMISSION DATE:02/06/19 SURGEON: SJ JEAN DO DATE OF OPERATION: 02/07/2019 PROCEDURE PERFORMED: Revision of right total hip arthroplasty on the femoral component and a femur open reduction internal fixation. PREOPERATIVE DIAGNOSIS: Right femur periprosthetic femur fracture. POSTOPERATIVE DIAGNOSIS: Right femur periprosthetic femur fracture. INDICATIONS: Ms. Torres is a 63-year-old female who underwent right total hip arthroplasty for femoral neck fracture approximately 2 months ago. She was doing well up until then, occasional pain and was just getting ready to get off of her walker and she said she "fell" onto her right hip. The patient was taken to another hospital and transferred here. She was seen to have a periprosthetic femur fracture just at the distal tip of the stem. Stem did not appear to be loose, but I thought that it would be better to do internal type fixation with a longer stem. The patient was aware of the risks including infection, bleeding, damage to nerves and vessels, need for further surgery, continued fracture or another fracture and blood clots, blood loss and even and she signed a consent. SURGEON: Sj Jean DO DESCRIPTION OF PROCEDURE: The patient was taken to the operative suite, sedated and intubated and then moved over to the Thornton table, given 2 grams Ancef preoperatively. The right hip was then prepped and draped in sterile fashion. Timeout was performed. Everyone was agreeance with the correct side, site, patient and procedure. We then began over the old incision going down to the hip prosthesis. The femur fracture was then fixed by passing cables around it, two cables fixing it temporarily. The hip was then dislocated and the old head was knocked off and then the stem also was slightly loose and this was taken out. Once the stem was out, broached, reamed to a 14 for the arcus 175 mm 1 piece that went 4 cortical widths at least past the fracture site. The reaming was done and then broaching. Then, the actual implant was put in. It was seen to be in good position on x-ray. Bone chips were put at the proximal femur to have some ingrowth more around the stem at the top, although it was well fixed in the shaft and past the fracture site. The hip was then reduced as a -3 head and neck were put on and the hip was reduced and then 2 more cables were passed around the fracture site securing it better with the actual fixation in the femur. These were tightened down and clamped off and cut as were the other ones. There was some significant bleeding; however, during the case. Bleeding was encountered and coagulated with the Aquamantys. We then irrigated thoroughly and put Geri powder in the wound as well as vancomycin, tobramycin powder, closed the IT band with #1 Vicryl over the tensor fascia abdelrahman fascia also in a [id number] fashion and then 2-0 Vicryl in an inverted interrupted fashion on the skin and Prineo glue on the skin. She was then awakened and taken to recovery in stable condition. Blood loss was 2000 mL. COMPLICATIONS: None. TRANSINT:[id number] Voice Confirmation ID: [id number] DOCUMENT ID: [id number] OPERATIVE REPORT [id number] GLORIA TORRES,SJ Iglesias DO at 1431 CC: [id number] DICTATION DATE: 02/07/192104 ALTERATIONS TAILOR: 02/07/192213 ADM IN [facility] [address] [place] [address]
--- NOTE | 2019-02-08 20:00 | NUR ---
ALERT RESTING IN BED, NO C/O OR REQUEST AT THIS TIME, SEE SHIFT ASSESSMENT, CALL LIGHT IN REACH
[2019-02-09 05:36] VITALS: BP 125/82
[2019-02-09 06:44] LABS: BASOPHILS 0.1 % (0-2); EOSINOPHILS 1.6 % (0-7); HEMOGLOBIN 9.6 g/dL (12-16); IMMATURE GRANULOCYTES 0.2 % (0-5); LYMPHOCYTES 15.9 % (15-50); MCH 29.6 pg (26.0-34.0); MCHC 34.3 g/dL (31.0-37.0); MEAN PLATELET VOLUME 10.7 fL (7.4-10.4); MONOCYTES 13.4 % (2-11); NEUTROPHILS 68.8 % (40-80); PLATELET COUNT 136 10x3/uL (130-400); RBC 3.24 10x6/uL (4.00-5.40); RDW 15.4 % (11.5-14.5)
[2019-02-09 06:56] LABS: WBC 8.4 10x3/uL (4.8-10.8)
[2019-02-09 06:57] LABS: ALBUMIN 2.5 g/dL (3.4-5.0); ALKALINE PHOSPHATASE 54 U/L (46-116); ALT (SGPT) 25 U/L (10-68); BILIRUBIN - TOTAL 0.42 mg/dL (0.2-1.3); CALC OSMOLALITY 282 mosm/kg (275-300); CALCIUM 8.2 mg/dL (8.5-10.1); CARBON DIOXIDE 29.6 mmol/L (21.0-32.0); CHLORIDE - SERUM 106 mmol/L (98-107); CREATININE - SERUM 0.7 mg/dL (0.6-1.3); GLUCOSE 115 mg/dL (74-106); MAGNESIUM - SERUM 2.3 mg/dL (1.8-2.4); MCV 86.4 fL (80.0-100.0); POTASSIUM - SERUM 3.6 mmol/L (3.5-5.1); PROTEIN - SERUM 5.4 g/dL (6.4-8.2); SODIUM 141 mmol/L (136-145); UREA NITROGEN 14 mg/dL (7-18); eGFR NON AFRICAN AMERICAN 89 mL/min (90-120)
[2019-02-09 09:01] VITALS: BP 137/81
[2019-02-09 12:00] VITALS: BP 137/81
[2019-02-09 12:48] VITALS: BP 138/86
--- NOTE | 2019-02-09 13:20 | NUR ---
0700 IN BED WATCHING TV AAOX4 BANANA BAG INFUSING TO RIGHT WRIST SITE SATISFACTORY RIGHT HIP SURGICAL DRESSING INTACT WITH DRIED DRAINAGE NOTED ON GAUZE. INFORMED PATIENT THAT DR JEAN WILL REMOVE THE 1ST DRESSING
--- NOTE | 2019-02-09 13:23 | NUR ---
0830 C/0 PAIN TO RIGHT LEG 01/28 DILAUDID 1MG IV GIVEN
--- NOTE | 2019-02-09 13:24 | NUR ---
1015 C/O PAIN TO RIGHT LEG 01/28 OXYCODONE 1R 5MG PO GIVEN
--- NOTE | 2019-02-09 14:52 | NUR ---
Nutrition Follow-up: Fair appetite/PO intake. Drinks 2 Ensure/day. States that she is on a low Na diet at home. Diet: Regular PO intake: <=50% of meals per pt Wt: 135# Last BM: 02/09 Labs reviewed Meds reviewed Change diet to low Na per pt request. +Ensure BID. [place] food preferences. RD following.
--- NOTE | 2019-02-09 15:05 | NUR ---
OT NOTE: PT REQUIRED MOD A FOR SUPINE TO SIT SECONDARY TO PAIN. PT REQUIRED EXTENDED TIME FOR TASKS. PT COMPLETED EOB SITTING WITH SBA. PT COMPLETED SIMPLE GROOMING AT EOB WITH SETUP. THANK YOU, SANJIV MILLER
[2019-02-09 16:51] VITALS: BP 128/79
--- NOTE | 2019-02-09 19:45 | NUR ---
PT SITTING UP IN BED WITHOUT DISTRESS, ALERT AND ORIENTED. STATES PAIN IN RIGHT LEG 12/28. GAVE DILAUDID ORDERED. IV RIGHT WRIST INFUSING MVI @ 125. ARIEL HOSE BILAT AND PLEXI BOOTS IN PLACE. BRAYDON ON. DRESING TO RIGHT LEG CDI. NAVAS DRAINING CLEAR YELLOW URINE. DENIES OTHER NEEDS AT THSI TIME. CL IN REACH, WILL CTM
[2019-02-09 21:43] VITALS: BP 124/62
--- NOTE | 2019-02-09 22:45 | NUR ---
PT STATES PAIN IN RIGHT LEG 12/28. GAVE OXY ORDERED. REQUESTED AND GIVEN SHERBERT, VANILLA ICE CREAM AND LEMON ALGAACIQ SODA. DENIES OTHER NEEDS. BRAYDON ON. CL IN REACH, WILL CTM
[2019-02-10] VITALS (8 sets, daily range): BP systolic 87–141; BP diastolic 52–93
[2019-02-10 07:26] LABS: BASOPHILS 0.2 % (0-2); HEMATOCRIT 27.3 % (36.0-48.0); HEMOGLOBIN 9.3 g/dL (12-16); IMMATURE GRANULOCYTES 0.2 % (0-5); LYMPHOCYTES 19.5 % (15-50); MCH 29.9 pg (26.0-34.0); MCHC 34.1 g/dL (31.0-37.0); MCV 87.8 fL (80.0-100.0); MEAN PLATELET VOLUME 10.4 fL (7.4-10.4); MONOCYTES 13.5 % (2-11); NEUTROPHILS 63.6 % (40-80); PLATELET COUNT 122 10x3/uL (130-400); RBC 3.11 10x6/uL (4.00-5.40); RDW 15.1 % (11.5-14.5)
[2019-02-10 07:50] LABS: ALBUMIN 2.1 g/dL (3.4-5.0); ALKALINE PHOSPHATASE 78 U/L (46-116); BILIRUBIN - TOTAL 0.51 mg/dL (0.2-1.3); CALCIUM 8.3 mg/dL (8.5-10.1); CARBON DIOXIDE 28.9 mmol/L (21.0-32.0); CHLORIDE - SERUM 107 mmol/L (98-107); CREATININE - SERUM 0.6 mg/dL (0.6-1.3); GLUCOSE 105 mg/dL (74-106); MAGNESIUM - SERUM 2.3 mg/dL (1.8-2.4); POTASSIUM - SERUM 3.9 mmol/L (3.5-5.1); PROTEIN - SERUM 5.1 g/dL (6.4-8.2); SODIUM 142 mmol/L (136-145); eGFR NON AFRICAN AMERICAN > 90 mL/min (90-120)
[2019-02-10 07:51] LABS: ALT (SGPT) 109 U/L (10-68); CALC OSMOLALITY 281 mosm/kg (275-300); UREA NITROGEN 10 mg/dL (7-18)
--- NOTE | 2019-02-10 09:00 | NUR ---
ALERT AND ORIENTED X4.TELEETRY INTACT DILAUDID GIVEN AND EFFECTIVE FOR PAIN MANAGEEMENT. NAVAS CATH INTACT. O2 2L N/C PRN. ENCOURAGED TO USE CALL LIGHT FOR ASSSIST.SCD AND ARIEL HOSE INTACT. LIMITED ROM TO RLE.
--- NOTE | 2019-02-10 11:45 | NUR ---
OT NOTE: PT DOING MUCH BETTER. ABLE TO PERFORM BED MOB WITH VERY MINIMAL ASSIST; SIT TO STAND WITH MIN ASSIST; MOD ASSIST FOR LE DRESSING; SET UP FOR SIMPLE GROOMING TASKS; AMB APPROX 60 FT WITH RW AND TTWB. PAIN HAS IMPROVED GREATLY TODAY. STATES THAT PAIN IS A 4/10. TRANSFER TO CHAIR WITH MIN ASSIST. WILL BENEFIT FROM IP REHAB IN ORDER TO RETURN TO PLOF. SHENA ORTEGA, OTR/L
--- NOTE | 2019-02-10 14:22 | NUR ---
Rehab Prescreening Consult recieved and the chart has been reviewed. She is [employer] Medicare and will require a preauth for the acute rehab. All information has been called and faxed to them for review. Ref# [id number]. Alexandra Demarco RN Clinical Liaison, Rehab
--- NOTE | 2019-02-10 14:50 | NUR ---
OT NOTE: PT COMPLETED BED MOB AND ADL MOB WITH CGA. PT COMPLETED TOILETING WITH SBA. THANK YOU,SANJIV MILLER
--- NOTE | 2019-02-10 22:12 | NUR ---
PATIENT IS ALERT AND ORENTED ABLE TO VOICE NEEDS AND WANTS TO STAFF. WATER AND CALL LIGHT IN REACH. DRESSING TO RIGHT HIP CDI. IV TO RIGHT WRIST WITH NS AT 75. TELEMERTY IN PLACE. BED LOW .
[2019-02-11] VITALS (7 sets, daily range): BP systolic 97–142; BP diastolic 45–83
[2019-02-11 06:41] LABS: BASOPHILS 0.3 % (0-2); EOSINOPHILS 4.4 % (0-7); HEMATOCRIT 23.7 % (36.0-48.0); HEMOGLOBIN 8.2 g/dL (12-16); IMMATURE GRANULOCYTES 0.3 % (0-5); LYMPHOCYTES 17.7 % (15-50); MCH 30.3 pg (26.0-34.0); MCHC 34.6 g/dL (31.0-37.0); MCV 87.5 fL (80.0-100.0); MEAN PLATELET VOLUME 10.5 fL (7.4-10.4); MONOCYTES 13.1 % (2-11); NEUTROPHILS 64.2 % (40-80); PLATELET COUNT 130 10x3/uL (130-400); RBC 2.71 10x6/uL (4.00-5.40); RDW 14.6 % (11.5-14.5); WBC 3.4 10x3/uL (4.8-10.8)
[2019-02-11 06:53] LABS: ALBUMIN 1.9 g/dL (3.4-5.0); ALKALINE PHOSPHATASE 122 U/L (46-116); ALT (SGPT) 311 U/L (10-68); BILIRUBIN - TOTAL 0.57 mg/dL (0.2-1.3); CALC OSMOLALITY 279 mosm/kg (275-300); CALCIUM 7.9 mg/dL (8.5-10.1); CARBON DIOXIDE 28.7 mmol/L (21.0-32.0); CHLORIDE - SERUM 106 mmol/L (98-107); CREATININE - SERUM 0.6 mg/dL (0.6-1.3); GLUCOSE 102 mg/dL (74-106); MAGNESIUM - SERUM 2.1 mg/dL (1.8-2.4); POTASSIUM - SERUM 4.1 mmol/L (3.5-5.1); PROTEIN - SERUM 4.5 g/dL (6.4-8.2); SODIUM 141 mmol/L (136-145); UREA NITROGEN 10 mg/dL (7-18); eGFR NON AFRICAN AMERICAN > 90 mL/min (90-120)
--- NOTE | 2019-02-11 09:00 | NUR ---
ALERT AND ORIENTED X4. DRESSING INTACT TO RT. FEMUR. IVF INFUSING AT PRESCRIBED RATE TO RT. WRIST WITH NO S/S OF INFECTION/INFILTRATION.TELEMETRY INTACT WITH SINUS RHYTHM WITH OCCAS PVC'S. DENEIS ANY CHEST PAIN OR DISCOMFORT. NO PERIPHERAL EDEMA WITH GOOD ROM. ENCOURAGED TO USE CALL LIGHT FOR ASSSIT WITH SCD AND ARIEL HOSE INTACT.
[2019-02-11 13:31] LABS: THYROID STIMULATING HORMONE 1.57 uIU/mL (0.36-3.74)
--- NOTE | 2019-02-11 19:55 | NUR ---
LYING IN BED, ABLE TO VOICE ALL NEEDS, REQUESTED BED MURRAY, NURSE ASSIST, VOIDED WITHOUT DIFFICULTY. IV TO RIGHT WRIST SALINE LOC. DENIES ANY FURTHER NEEDS AT THIS TIME. WILL NOTE ANY CHANGE.
[2019-02-12] VITALS (8 sets, daily range): BP systolic 110–161; BP diastolic 46–93
--- NOTE | 2019-02-12 02:24 | NUR ---
I have reviewed this patient and I concur with the Shift Assessment completed by the Licensed Practical Nurse today this shift.
--- NOTE | 2019-02-12 05:44 | NUR ---
AT 0436 COMPLAINED OF PAIN TO LLE, OXYCODONE GIVEN PER ORDERS. WILL NOTE ANY CHANGE.
[2019-02-12 05:50] LABS: CALC OSMOLALITY 276 mosm/kg (275-300); CALCIUM 8.3 mg/dL (8.5-10.1); CHLORIDE - SERUM 104 mmol/L (98-107); CREATININE - SERUM 0.6 mg/dL (0.6-1.3); GLUCOSE 104 mg/dL (74-106); MAGNESIUM - SERUM 1.9 mg/dL (1.8-2.4); SODIUM 139 mmol/L (136-145); UREA NITROGEN 10 mg/dL (7-18); eGFR NON AFRICAN AMERICAN > 90 mL/min (90-120)
--- NOTE | 2019-02-12 09:29 | NUR ---
ALERT AND ORIENTED X4 WITH INCREASED ROM TO BLE WITH TOE TOUCH TO RLE. NO PERIPHERAL EDEMA NOTED AND CONTINUES TO USEPAIN MEDICATION FOR PAIN MANAGEMENT. PEDAL PULSES NOTED AND AMBULATED 115FT THIS AM WITH THERAPY WITH WALKER. ENCOURAGED TO USE WALKER TO GO TO BATHROOM WITH ASSSIT. ENCOURAGED TO USE CALL LIGHT FOR ASSSIT.
--- NOTE | 2019-02-12 12:42 | NUR ---
PT. CLEARED PER PHYSICAL THERAPY TO AMBULATE WITH WALKER WITH SBA WITH TOE TOUCH ONLY. PAIN MANAGED WITH OXYCODONE AND EFFECTIVE.
--- NOTE | 2019-02-12 19:15 | NUR ---
RECEIVED CARE FROM DAY NURSE. LYING IN BED WATCHING TV. ASSISTED TO RESTROOM WITH MINIMAL ASSIST WITH HELP OF WALKER. NO OTHER NEEDS VOICED A THIS TIME. CALL LIGHT PLACED BACK AT SIDE. IV SL TO RIGHT FA.
[2019-02-13] VITALS: BP 127/88
--- NOTE | 2019-02-13 01:00 | NUR ---
I have reviewed this patient and I concur with the Shift Assessment completed by the Licensed Practical Nurse today this shift.
[2019-02-13 04:00] VITALS: BP 145/93
[2019-02-13 05:39] LABS: BASOPHILS 0.4 % (0-2); EOSINOPHILS 3.2 % (0-7); HEMATOCRIT 26.3 % (36.0-48.0); HEMOGLOBIN 8.8 g/dL (12-16); IMMATURE GRANULOCYTES 0.3 % (0-5); LYMPHOCYTES 12.1 % (15-50); MCH 29.3 pg (26.0-34.0); MCHC 33.5 g/dL (31.0-37.0); MCV 87.7 fL (80.0-100.0); MEAN PLATELET VOLUME 10.2 fL (7.4-10.4); MONOCYTES 11.5 % (2-11); NEUTROPHILS 72.5 % (40-80); RDW 14.2 % (11.5-14.5)
[2019-02-13 05:44] LABS: PLATELET COUNT 242 10x3/uL (130-400); WBC 6.9 10x3/uL (4.8-10.8)
[2019-02-13 05:59] LABS: CALC OSMOLALITY 277 mosm/kg (275-300); CALCIUM 8.7 mg/dL (8.5-10.1); CARBON DIOXIDE 29.1 mmol/L (21.0-32.0); CHLORIDE - SERUM 103 mmol/L (98-107); GLUCOSE 111 mg/dL (74-106); MAGNESIUM - SERUM 1.9 mg/dL (1.8-2.4); SODIUM 139 mmol/L (136-145); UREA NITROGEN 11 mg/dL (7-18); eGFR NON AFRICAN AMERICAN 76 mL/min (90-120)
[2019-02-13 06:10] LABS: CREATININE - SERUM 0.8 mg/dL (0.6-1.3)
--- NOTE | 2019-02-13 07:15 | NUR ---
ALERT AND ORIENTED, RESTING IN BED. NO C/O PAIN. NO S/S OF ACUTE DISTRESS NOTED. POD #6 TOTAL HIP, DRESSING C/D/I. IV TO RIGHT FOREARM, SL. SITE PATENT WITHOUT REDNESS OR SWELLING. ON TELEMETRY 75 SR WITH PVC'S. PT TOE TOUCH WEIGHT BEARING. PT DENIES ANY NEEDS. CALL LIGHT IN REACH. WILL CONTINUE TO MONITOR.
[2019-02-13 09:02] VITALS: BP 126/73
--- NOTE | 2019-02-13 09:53 | NUR ---
I have reviewed this patient and I concur with the Shift Assessment completed by the Licensed Practical Nurse today this shift.
[2019-02-13] MEDS ORDERED: ELIQUIS2.5 MG PO (10:31)
[2019-02-13] MEDS ORDERED: Benadryl INJ IV (10:31)
[2019-02-13] MEDS ORDERED: oxyCODONE IR PO (10:31)
--- NOTE | 2019-02-13 11:19 | MORECARE ---
CASE MANAGEMENT DISCHARGE SUMMARY PATIENT: GLORIA TORRES HEAVEN UNIT: [id number] ADM DATE: 02/06/19 AGE: 63 : 51 SEX: F ROOM/BED: D.2239 AUTHOR: VINEET BALTAZAR PHYSICIAN: REFERRING PHYSICIAN: HUSSIAN TREVIÑO DO DATE OF SERVICE: 02/13/19 Discharge Plan Patient Name: GLORIA TORRES Facility: [facility]:[place] : 1955 Planned Disposition: Home Anticipated Discharge Date: 02/09/19 Discharge Date: Expected LOS: 3 Initial Reviewer: [email or web address] Initial Review Date: 02/06/2019 Generated: 02/13/19 12:19 pm Comments DCP- Discharge Planning Updated by [email or web address]: Arielle Morley on 02/13/19 10:[address] Patient Name: GLORIA TORRES Encounter No: [id number] : 1955 Primary Insurance: [employer] Anticipated DC Date: 02-09-2019 Planned Disposition: Home External Planned Provider: : DCP follow-up note: Patient in agreement with discharge plan. No changes to plan. Patient states she will notify her family of discharge to inpatient rehab. Case management will follow and assist as needed. Arielle Morley DCP- Discharge Planning Updated by [id number]: Sandy Joy on 02/08/19 11:[address] Patient Name: GLORIA TORRES Admission Status: ER Accout number: [id number] Admission Date: 02-06-2019 : 1955 Admission Diagnosis: Attending: HUSSAIN TREVIÑO Current LOS: 2 Anticipated DC Date: 02-09-2019 Planned Disposition: Home Primary Insurance: [employer] Discharge Planning Comments: PATIENT WOULD LIKE TO RESUME HH WITH [facility]. HILDA SIGNED. Paint Roller Cover Machine Setter: Sandy Joy DCP- Discharge Planning Updated by [id number]: Yamel Patino on 02/06/19 5:[address] Patient Name: GLORIA TORRES Admission Status: ER Accout number: [id number] Admission Date: 02-06-2019 : 1955 Admission Diagnosis: Attending: HUSSAIN TREVIÑO Current LOS: 1 Anticipated DC Date: 02-09-2019 Planned Disposition: Home Primary Insurance: [employer] Discharge Planning Comments: DC PLAN: Return home with her room mates. ANTICIPATED DC NEEDS: Denied known dc needs at this time. CM met with patient to complete initial dc planning assessment. CM educated patient on the CM role and verbal consent given by patient to complete assessment. CM verified patient's address, phone number, and emergency contact phone numbers. Patient lives at home with room mates. She reports she is independent in her care at home. At discharge patient plans to return home with her room mates and feels this is a safe discharge. CM discussed availability of home health, rehab services, and medical equipment. Patient denied known discharge needs at this time. Patient reports one of her room mates will transport her home at time of discharge. CM will continue to follow and will assist as needed with dc plans/needs. Paint Roller Cover Machine Setter: Yamel Patino RN,[facility] DCPIA - Discharge Planning Initial Assessment Updated by [email or web address]: Yamel Patino on 02/06/19 6:29 pm * Is the patient Alert and Oriented? Yes * PCP Dr. Amador * Pharmacy [facility] on [facility] * Preadmission Environment Home with Family * ADLs Independent * Equipment Rolling Walker * List name and contact numbers for known caregivers / representatives who currently or will assist patient after discharge: Enrique Mclain [facility] - [phone] * Verbal permission to speak to the caregivers and representatives has been obtained from the patient. Yes * Community resources currently utilized None * Additional services required to return to the preadmission environment? No * Can the patient safely return to the preadmission environment? Yes * Has this patient been hospitalized within the prior 30 days at any hospital? No Coverage Notice Reviewer: [id number] - Sandy Joy Notice Issued Date-Time: 02/08/2019 12:18 Notice Type: Patient Choice Letter Notice Delivered To: Patient Relationship to Patient: Freight Router Name: Delivery Method: HAND - Hand Delivered Leti Days: Prior Verbal Notification: Recipient Understood Notice: Yes Recipient Signature: Yes Med Rec Note Co-signed by Attending: Coverage Notice Comment: HILDA SON Reviewer: [id number] - Arielle Morley Notice Issued Date-Time: 02/13/2019 11:06 Notice Type: IM Discharge Notice Notice Delivered To: Patient Relationship to Patient: Self Freight Router Name: Delivery Method: HAND - Hand Delivered Leti Days: Prior Verbal Notification: Recipient Understood Notice: Yes Recipient Signature: Yes Med Rec Note Co-signed by Attending: Coverage Notice Comment: IMM explained, signed, given, copy placed in MR Last DP export: 02/08/19 11:27 a Patient Name: GLORIA TORRES Page 30580 at 1119 All edits/amendments must be made on the electronic document DICTATION DATE: 02/13/191118 DIGITAL COMPOSER: RICHARD 02/13/19 111 RPT#: [id number] DC DATE: STATUS: ADM IN [facility] [address] [place] [address] END OF REPORT
[2019-02-13] MEDS ORDERED: BENADRYL25 MG PO (11:20)
[2019-02-13 13:12] VITALS: BP 118/74
--- NOTE | 2019-02-13 13:39 | NUR ---
OT NOTE: PT DOING VERY WELL TODAY. STATED THAT SHE HAD AMB TO BATHROOM WITHOUT ASSIST. INSTRUCTED TO USE CALL LIGHT. STATED THAT SHE COULD NOT WAIT. PERFORMED BED MOB INCLUDING SUPINE TO SIT AND SIT TO SUPINE WITH SBA; AMB GREATER THAN 100 FT WITH CGA AND FOLLOWING PRECAUTIONS WELL. REQUIRED ASSIST FOR DONNING SOCKS; ABLE TO FARHEEN GOWN WITH SET UP; GROOMING WITH SET UP; FEEDING WITH SET UP. PROVIDED BS COMMODE TO INCREASE EASE WITH TOILETING. SHENA ORTEGA, OTR/L
--- NOTE | 2019-02-13 15:07 | NUR ---
DISCHARGED PT TO INPATIENT REHAB. DISCONTINUED IV, CATHETER TIP INTACT. WENT OVER DISCHARGE INSTRUCTIONS WITH PT, PT VERBALIZED UNDERSTANDING. PT DENIES ANY NEEDS. TAKEN TO REHAB VIA WHEELCHAIR.
--- NOTE | 2019-02-16 08:33 | MORECARE ---
CASE MANAGEMENT DISCHARGE SUMMARY PATIENT: GLORIA TORRES HEAVEN UNIT: [id number] ADM DATE: 02/06/19 AGE: 63 : 51 SEX: F ROOM/BED: D.2239 AUTHOR: VINEET BALTAZAR PHYSICIAN: REFERRING PHYSICIAN: HUSSAIN TREVIÑO DO DATE OF SERVICE: 02/16/19 Discharge Plan Patient Name: GLORIA TORRES Facility: [facility]:[place] : 1955 Planned Disposition: Home Anticipated Discharge Date: 02/09/19 Discharge Date: 02/13/2019 Expected LOS: 3 Initial Reviewer: [email or web address] Initial Review Date: 02/06/2019 Generated: 02/16/19 9:32 am Comments DCP- Discharge Planning Updated by [email or web address]: Arielle Morley on 02/13/19 10:[address] Patient Name: GLORIA TORRES Encounter No: [id number] : 1955 Primary Insurance: [employer]YSMCR Anticipated DC Date: 02-09-2019 Planned Disposition: Home External Planned Provider: : DCP follow-up note: Patient in agreement with discharge plan. No changes to plan. Patient states she will notify her family of discharge to inpatient rehab. Case management will follow and assist as needed. Arielle Morley DCP- Discharge Planning Updated by [email or web address]: Sandy Joy on 02/08/19 11:[address] Patient Name: GLORIA TORRES Admission Status: ER Accout number: [id number] Admission Date: 02-06-2019 : 1955 Admission Diagnosis: Attending: HUSSAIN TREVIÑO Current LOS: 2 Anticipated DC Date: 02-09-2019 Planned Disposition: Home Primary Insurance: NOVASYSMCR Discharge Planning Comments: PATIENT WOULD LIKE TO RESUME HH WITH [facility]. Risk Control Field Representative: Sandy Joy DCP- Discharge Planning Updated by [email or web address]: Yamel Patino on 02/06/19 5:[address] Patient Name: GLORIA TORRES Admission Status: ER Accout number: [id number] Admission Date: 02-06-2019 : 1955 Admission Diagnosis: Attending: HUSSAIN TREVIÑO Current LOS: 1 Anticipated DC Date: 02-09-2019 Planned Disposition: Home Primary Insurance: [employer] Discharge Planning Comments: DC PLAN: Return home with her room mates. ANTICIPATED DC NEEDS: Denied known dc needs at this time. CM met with patient to complete initial dc planning assessment. CM educated patient on the CM role and verbal consent given by patient to complete assessment. CM verified patient's address, phone number, and emergency contact phone numbers. Patient lives at home with room mates. She reports she is independent in her care at home. At discharge patient plans to return home with her room mates and feels this is a safe discharge. CM discussed availability of home health, rehab services, and medical equipment. Patient denied known discharge needs at this time. Patient reports one of her room mates will transport her home at time of discharge. CM will continue to follow and will assist as needed with dc plans/needs. Risk Control Field Representative: Yamel Patino RN,[facility] DCPIA - Discharge Planning Initial Assessment Updated by [email or web address]: Yamel Patino on 02/06/19 6:29 pm * Is the patient Alert and Oriented? Yes * PCP Dr. Amador * Pharmacy [facility] * Preadmission Environment Home with Family * ADLs Independent * Equipment Rolling Walker * List name and contact numbers for known caregivers / representatives who currently or will assist patient after discharge: [facility] - [phone] * Verbal permission to speak to the caregivers and representatives has been obtained from the patient. Yes * Community resources currently utilized None * Additional services required to return to the preadmission environment? No * Can the patient safely return to the preadmission environment? Yes * Has this patient been hospitalized within the prior 30 days at any hospital? No Coverage Notice Reviewer: [email or web address] Jessi Joy Notice Issued Date-Time: 02/08/2019 12:18 Notice Type: Patient Choice Letter Notice Delivered To: Patient Relationship to Patient: Gas Appliance Adjuster Name: Delivery Method: HAND - Hand Delivered Leti Days: Prior Verbal Notification: Recipient Understood Notice: Yes Recipient Signature: Yes Med Rec Note Co-signed by Attending: Coverage Notice Comment: HILDA SON Reviewer: [id number] - Arielle Morley Notice Issued Date-Time: 02/13/2019 11:06 Notice Type: IM Discharge Notice Notice Delivered To: Patient Relationship to Patient: Self Gas Appliance Adjuster Name: Delivery Method: HAND - Hand Delivered Leti Days: Prior Verbal Notification: Recipient Understood Notice: Yes Recipient Signature: Yes Med Rec Note Co-signed by Attending: Coverage Notice Comment: IMM explained, signed, given, copy placed in MR Last DP export: 02/13/19 10:19 a Patient Name: GLORIA TORRES Page [id number] at 0833 All edits/amendments must be made on the electronic document DICTATION DATE: 02/16/19831 TEAROOM HOSTESS: RICHARD 02/16/19831 RPT#: [id number] DC DATE:02/13/19 STATUS: DIS IN [facility] [address] [place] [address] END OF REPORT
== END 2019-02-13 15:09 | DRG 467 ==
LOC: D.ER 13:55 → D.MS 17:18
PROVIDERS: Emergency Medicine; Orthopaedic Surgery; ADMIT Family Medicine; ATTEND Family Medicine
PROC: 0QS604Z Reposition Right Upper Femur with Internal Fixation Device, Open Approach (ICD-10-PCS; 2019-02-07)
PROC: 0SRR0J9 Replacement of Right Hip Joint, Femoral Surface with Synthetic Substitute, Cemented, Open Approach (ICD-10-PCS; principal; 2019-02-07 16:15)
PROC: 0SPR0JZ Removal of Synthetic Substitute from Right Hip Joint, Femoral Surface, Open Approach (ICD-10-PCS; 2019-02-07 16:15)
DX: M97.01XA Periprosthetic fracture around internal prosthetic right hip joint, initial encounter (principal); F17.203 Nicotine dependence unspecified, with withdrawal; W19.XXXA Unspecified fall, initial encounter; Y92.009 Unspecified place in unspecified non-institutional (private) residence as the place of occurrence of the external cause; J44.9 Chronic obstructive pulmonary disease, unspecified; K74.60 Unspecified cirrhosis of liver; I25.10 Atherosclerotic heart disease of native coronary artery without angina pectoris; B19.20 Unspecified viral hepatitis C without hepatic coma; F41.8 Other specified anxiety disorders; F12.90 Cannabis use, unspecified, uncomplicated; D69.6 Thrombocytopenia, unspecified

== ENCOUNTER 2019-02-13 15:34 | Inpatient (IN) | payer OTHER, MEDICAID ==
[~2019-02-13] VITALS: Ht 175.3 cm; Wt 61.2 kg
[~2019-02-13 15:34] MED LIST changes: +BAYER CHEWABLE81 MG PO; +BENADRYL25 MG PO; +Benadryl INJ IV; +CHRONULAC30 ML PO; +oxyCODONE IR PO
[2019-02-13 16:18] VITALS: BP 123/78; BMI 19.9
[2019-02-13 19:50] VITALS: BP 131/73
[2019-02-14 05:58] LABS: BASOPHILS 0.3 % (0-2); EOSINOPHILS 4.1 % (0-7); HEMATOCRIT 25.6 % (36.0-48.0); HEMOGLOBIN 8.7 g/dL (12-16); IMMATURE GRANULOCYTES 0.3 % (0-5); LYMPHOCYTES 16.4 % (15-50); MCH 29.8 pg (26.0-34.0); MCV 87.7 fL (80.0-100.0); MEAN PLATELET VOLUME 10.5 fL (7.4-10.4); MONOCYTES 12.6 % (2-11); NEUTROPHILS 66.3 % (40-80); PLATELET COUNT 274 10x3/uL (130-400); RBC 2.92 10x6/uL (4.00-5.40); RDW 14.2 % (11.5-14.5); WBC 6.3 10x3/uL (4.8-10.8)
[2019-02-14 06:34] LABS: CALC OSMOLALITY 278 mosm/kg (275-300); CALCIUM 8.8 mg/dL (8.5-10.1); CARBON DIOXIDE 28.9 mmol/L (21.0-32.0); CHLORIDE - SERUM 105 mmol/L (98-107); CREATININE - SERUM 0.7 mg/dL (0.6-1.3); GLUCOSE 100 mg/dL (74-106); POTASSIUM - SERUM 3.9 mmol/L (3.5-5.1); SODIUM 140 mmol/L (136-145); UREA NITROGEN 13 mg/dL (7-18); eGFR NON AFRICAN AMERICAN 89 mL/min (90-120)
[2019-02-14 08:10] VITALS: BP 131/89
[2019-02-14 13:27] VITALS: Ht 175.3 cm; Wt 61.2 kg
[2019-02-14 20:27] VITALS: BP 126/72
[2019-02-15 07:33] LABS: BASOPHILS 0.3 % (0-2); EOSINOPHILS 3.9 % (0-7); HEMATOCRIT 27.1 % (36.0-48.0); HEMOGLOBIN 9.1 g/dL (12-16); IMMATURE GRANULOCYTES 0.5 % (0-5); LYMPHOCYTES 14.3 % (15-50); MCH 29.7 pg (26.0-34.0); MCHC 33.6 g/dL (31.0-37.0); MCV 88.6 fL (80.0-100.0); MEAN PLATELET VOLUME 10.1 fL (7.4-10.4); MONOCYTES 9.4 % (2-11); NEUTROPHILS 71.6 % (40-80); RBC 3.06 10x6/uL (4.00-5.40); RDW 14.5 % (11.5-14.5); WBC 6.6 10x3/uL (4.8-10.8)
[2019-02-15 07:47] LABS: CALC OSMOLALITY 282 mosm/kg (275-300); CALCIUM 8.9 mg/dL (8.5-10.1); CARBON DIOXIDE 29.5 mmol/L (21.0-32.0); CHLORIDE - SERUM 105 mmol/L (98-107); CREATININE - SERUM 0.8 mg/dL (0.6-1.3); GLUCOSE 103 mg/dL (74-106); POTASSIUM - SERUM 3.9 mmol/L (3.5-5.1); SODIUM 141 mmol/L (136-145); eGFR NON AFRICAN AMERICAN 76 mL/min (90-120)
[2019-02-15 07:48] LABS: PLATELET COUNT 330 10x3/uL (130-400); UREA NITROGEN 17 mg/dL (7-18)
[2019-02-15 08:02] VITALS: BP 133/81
[2019-02-15 20:52] VITALS: BP 149/82
[2019-02-16] MEDS ORDERED: oxyCODONE IR PO (08:18)
[2019-02-16] MEDS ORDERED: ELIQUIS2.5 MG PO (08:18)
--- NOTE | 2019-02-16 08:19 | RHP ---
PATIENT: GLORIA TORRES MEDICAL RECORD: [id number] ACCOUNT: [id number] LOCATION:[facility]1114 : 51 ADMISSION DATE: 02/13/19 REHABILITATION HISTORY AND PHYSICAL EXAMINATION POST ADMISSION PHYSICIAN EXAMINATION DATE OF ADMISSION: 02/13/2019 ADMITTING DIAGNOSIS: Proximal femur shaft fracture. HISTORY OF PRESENT ILLNESS: The patient is a 63-year-old female patient, who on the morning of 02/06/2019 around 5:00 a.m. injured her right leg. She was unable to bear weight due to pain. She is brought in via EMS. She has got a history of hypertension, COPD and in 2019 she had a right total hip arthroplasty secondary to a right femoral neck fracture. The patient was seen and evaluated. X-ray showed a proximal right hip shaft fracture. The patient's medical condition warranted admission to the hospital and consultation with ortho. On 02/07/2019, she went to the OR for revision of a right total hip arthroplasty on the femoral component and femoral open reduction internal fixation. She was moderately independent with use of a rolling walker for mobility and was independent with other ADLs. She is currently set up for mod assist for ADLs and mod assist to max assist for mobility. She plans to return home hopefully at her prior level of functioning or better if possible. COMORBIDITIES: Include history of hepatitis C, hypertension, thrombocytopenia, femur fracture, coronary artery disease, cirrhosis, history of nicotine dependence, depression. PAST MEDICAL HISTORY: Significant for hypertension, COPD, hep C, cirrhosis, arthritis, chronic back pain, depression and anxiety. PAST SURGICAL HISTORY: Includes joint replacement and tubal ligation. ALLERGIES: ACCUPRIL AND DIOVAN. CURRENT MEDICATIONS: Include a Nicoderm patch 14 mg daily, Celexa 40 mg daily, aspirin 81 mg daily, trazodone 150 mg at bedtime, Voltaren 50 mg b.i.d., BuSpar 30 mg b.i.d., Eliquis 2.5 mg b.i.d., lactulose 30 cc q.i.d., OxyIR 5 mg every 4 hours p.r.n. and Benadryl 25 mg every 4 hours p.r.n. itching. HABITS: Does have a history of tobacco use. FAMILY HISTORY: Noncontributory. SOCIAL HISTORY: The patient hopes to return back home and get back to her prior level of functioning. REVIEW OF SYSTEMS: GENERAL: Does complain of weakness. HEENT: Denies cold, cough, or congestion. CARDIOVASCULAR: Denies any chest pain. PHYSICAL EXAMINATION: VITAL SIGNS: Stable, afebrile. GENERAL: Elderly female, in no acute distress upon exam. HISTORY AND PHYSICAL [id number] GLORIA TORRES HEENT: Normocephalic and atraumatic. Mucosa moist. NECK: Supple. No lymphadenopathy. LUNGS: Clear at this time with no wheezing, rhonchi or rales. HEART: Regular rate and rhythm. No murmurs, rubs or gallops. ABDOMEN: Soft, benign, and nondistended. Positive bowel sounds times 4. EXTREMITIES: Postop swelling looks normal. NEUROLOGIC: Does have good muscle strength in her proximal leg muscles 4/5. LABORATORY DATA: White count is 6.3, H&H of 8.7 and 25.6 and platelet count was noted to be 274. Sodium is 140, potassium 3.9, BUN and creatinine of 13 and 0.7 and blood sugar is noted to be 100. ASSESSMENT: A 63-year-old female patient admitted to rehab with a working diagnosis of right hip fracture. The patient is stable and doing well at this time. The patient has potential to make improvement. We instituted the following multidisciplinary therapies include, but not limited to physical, occupational, respiratory, speech, nutritional services, prosthetics and orthotics. Given her complex medical condition and risk for more complications, rehabilitation services cannot be provided at a low level of care such a skilled nurse facility. PLAN: 1. Admit to rehab for inpatient therapy to include the following disciplines; A. Physical therapy to improve gait, all transfer skills and bed mobility to a modified independent level. B. Occupational therapy to a modified independent level. C. Case management to assist with discharge planning and placement options. D. Nutrition to assist with nutritional needs. E. Rehabilitation nursing to assist in monitoring the patient's underlying medical condition and to assist with any type of bowel or bladder management. 2. The patient's current medication and medical care will be continued. 3. The patient will be placed on standard fall precautions. 4. The patient's estimated length of stay is approximately 7-10 days. 5. Discuss the patient during care team staff meeting this week. TRANSINT:[id number] Voice Confirmation ID: [id number] DOCUMENT ID: [id number] EVER notes whether there has been none or any medical/functional change since admission: - No change since prescreen. EVER attests patient continues to be appropriate for IRF: - Continues to be approriate. HISTORY AND PHYSICAL [id number] GLORIA TORRES,CHRISTOPHER POST MD at 0819 CC: [id number] DICTATION DATE: 02/14/19911 TRUCK DESPATCHER: 02/14/19 0933 ADM IN [place] [id number] [place] [id number]
--- NOTE | 2019-03-27 12:36 | DS ---
PATIENT:GLORIA TORRES :51 MEDICAL RECORD: [id number] DISCHARGE SUMMARY ADMISSION DATE: 02/13/19 DISCHARGE DATE: 02/16/19 This is a discharge dated 02/16/2019 from inpatient rehabilitation. PRIMARY DIAGNOSIS: Decreased functional ability and ability to provide activities of daily living secondary to a femur fracture, status post revision of right total hip arthroplasty with ORIF of the right femur. SECONDARY DIAGNOSES: 1. Hypertension. 2. Chronic obstructive pulmonary disease. 3. Hepatitis C. 4. Thrombocytopenia. 5. Cirrhosis. 6. Coronary artery disease. 7. Depression. 8. Arthritis. 9. Tobacco abuse. 10. Anemia. 11. Status post fall. HOSPITAL COURSE: Full H and P is located elsewhere on the chart on this 63-year-old female who was admitted to inpatient rehab for physical therapy and occupational therapy to improve gait, transfer skills, bed mobility, and activities of daily living to a modified independent level. She was evaluated by PT and OT and their plans of care were followed. She required alf care for observation and assessment, medication administration, as well as wound care and monitoring of surgical incision. She was cooperative with therapies, progressing towards goals. Case management was involved for discharge planning. She was considered stable for discharge on 02/16/2019 having made good progress with physical therapy and having met her OT goals. Further therapy was recommended at discharge. DISCHARGE MEDICATIONS: As per discharge medication reconciliation. DISCHARGE DISPOSITION: The patient is discharged home. She will continue her current diet and level of activity. She will have [place] at home for home care for continued PT and OT and will follow up with primary care and specialists as directed. At least 30 minutes was spent in this discharge activity. TRANSINT:[id number] Voice Confirmation ID: [id number] DOCUMENT ID: [id number] Dictated By: LAURI ARRIAZA I have interviewed/examined the above patient and agree with these documented findings. DISCHARGE SUMMARY REPORT [id number] GLORIA TORRES,CHRISTOPHER POST MD at 1236 CC: [id number] DICTATION DATE: 03/26/191900 MACHINE LAY OUT WORKER: 03/27/19 0747 DIS IN 02/16/19 [place] [address]
== END 2019-02-16 10:12 | disposition home health service (06) | DRG 560 ==
LOC: D.REHAB 15:34
PROVIDERS: ADMIT Emergency Medicine; ATTEND Emergency Medicine
DX: S72.8X1D Other fracture of right femur, subsequent encounter for closed fracture with routine healing (principal); F17.203 Nicotine dependence unspecified, with withdrawal; I10 Essential (primary) hypertension; J44.9 Chronic obstructive pulmonary disease, unspecified; I25.10 Atherosclerotic heart disease of native coronary artery without angina pectoris; B19.20 Unspecified viral hepatitis C without hepatic coma; F32.9 Major depressive disorder, single episode, unspecified; K74.60 Unspecified cirrhosis of liver; D69.6 Thrombocytopenia, unspecified

== ENCOUNTER → 2019-06-02 12:21 | Outpatient (CLI) | payer OTHER ==
[2019-02-14 13:27] VITALS: BMI 19.9
== END | disposition home or self-care (01) ==
LOC: D.MRI 12:21
PROVIDERS: ATTEND Orthopaedic Surgery
DX: M54.16 Radiculopathy, lumbar region (principal)

== ENCOUNTER 2019-07-06 01:04 | Emergency (ER) | payer OTHER, MEDICAID ==
[~2019-07-06] VITALS: Ht 175.3 cm; Wt 54.5 kg
[2019-07-06 01:08] VITALS: Ht 175.3 cm; Wt 54.5 kg
[2019-07-06] MEDS ORDERED: ULTRAM50 MG PO (02:05)
[2019-07-06 02:17] VITALS: BP 109/77
== END 2019-07-06 02:17 | disposition home or self-care (01) ==
LOC: D.ER 01:04
DX: S89.91XA Unspecified injury of right lower leg, initial encounter (principal); W19.XXXA Unspecified fall, initial encounter; Y93.9 Activity, unspecified; Y92.9 Unspecified place or not applicable; I10 Essential (primary) hypertension; J44.9 Chronic obstructive pulmonary disease, unspecified; Z72.0 Tobacco use

== ENCOUNTER 2019-08-23 08:00 | Outpatient (CLI) | payer OTHER, MEDICAID ==
[~2019-08-23 08:00] MED LIST changes: +ULTRAM50 MG PO
[2019-08-23] MEDS ORDERED: LISINOPRIL20 MG PO (15:59)
[2019-08-23] MEDS ORDERED: ULTRAM50 MG PO (15:59)
[2019-08-23 17:18] LABS: BASOPHILS 0.2 % (0-2); EOSINOPHILS 0.4 % (0-7); HEMATOCRIT 46.2 % (36.0-48.0); HEMOGLOBIN 15.9 g/dL (12-16); IMMATURE GRANULOCYTES 0.3 % (0-5); LYMPHOCYTES 15.2 % (15-50); MCH 30.5 pg (26.0-34.0); MCHC 34.4 g/dL (31.0-37.0); MCV 88.5 fL (80.0-100.0); MEAN PLATELET VOLUME 10.9 fL (7.4-10.4); MONOCYTES 6.1 % (2-11); NEUTROPHILS 77.8 % (40-80); PLATELET COUNT 274 10x3/uL (130-400); RBC 5.22 10x6/uL (4.00-5.40); RDW 14.4 % (11.5-14.5)
[2019-08-23 17:20] LABS: APTT 33.9 SECONDS (22.8-39.4); INR 1.08 (0.85-1.17)
[2019-08-23 17:34] LABS: CALC OSMOLALITY 274 mosm/kg (275-300); CARBON DIOXIDE 26.2 mmol/L (21.0-32.0); CHLORIDE - SERUM 102 mmol/L (98-107); CREATININE - SERUM 0.7 mg/dL (0.6-1.3); GLUCOSE 102 mg/dL (74-106); POTASSIUM - SERUM 4.1 mmol/L (3.5-5.1); SODIUM 139 mmol/L (136-145); UREA NITROGEN 5 mg/dL (7-18); eGFR NON AFRICAN AMERICAN 89 mL/min (90-120)
[2019-09-20 12:11] VITALS: BMI 16.9
== END 2019-08-23 08:01 | disposition home or self-care (01) ==
LOC: D.PAN 08:00 → D.M2 11:00 → EDSTATUS 08-29 13:00
PROVIDERS: ATTEND Orthopaedic Surgery
DX: M97.01XA Periprosthetic fracture around internal prosthetic right hip joint, initial encounter (principal)

== ENCOUNTER → 2019-08-23 17:38 | Outpatient (CLI) | payer OTHER ==
[2019-07-06 01:08] VITALS: BMI 17.7
[~2019-08-23 17:38] MED LIST changes: +LISINOPRIL20 MG PO
== END | disposition home or self-care (01) ==
LOC: D.LABREF 17:38
PROVIDERS: ATTEND Orthopaedic Surgery
DX: M16.11 Unilateral primary osteoarthritis, right hip (principal)

== ENCOUNTER → 2019-08-24 11:13 | Outpatient (CLI) | payer OTHER ==
[2019-07-06 01:08] VITALS: BMI 17.7
== END | disposition home or self-care (01) ==
LOC: D.LABREF 11:13
PROVIDERS: ATTEND Orthopaedic Surgery
DX: M25.551 Pain in right hip (principal)

== ENCOUNTER → 2019-09-08 09:37 | Outpatient (CLI) | payer OTHER ==
[2019-07-06 01:08] VITALS: BMI 17.7
== END | disposition home or self-care (01) ==
LOC: D.HCCARDIO 09:37
PROVIDERS: ATTEND Internal Medicine Cardiovascular Disease
DX: R94.31 Abnormal electrocardiogram [ECG] [EKG] (principal)

== ENCOUNTER 2019-09-12 09:56 | Inpatient (IN) | payer OTHER ==
[~2019-09-12] VITALS: Ht 172.7 cm; Wt 52.2 kg
[2019-09-13 14:50] LABS: HEMATOCRIT 44.8 % (36.0-48.0); HEMOGLOBIN 14.8 g/dL (12-16); LYMPHOCYTES 13.9 % (15-50); MCH 30.3 pg (26.0-34.0); MCV 91.6 fL (80.0-100.0); MEAN PLATELET VOLUME 9.8 fL (7.4-10.4); NEUTROPHILS 77.5 % (40-80); RBC 4.89 10x6/uL (4.00-5.40); RDW 15.4 % (11.5-14.5); WBC 9.9 10x3/uL (4.8-10.8)
[2019-09-13 15:00] LABS: PLATELET COUNT 201 10x3/uL (130-400)
[2019-09-13 15:05] LABS: CALC OSMOLALITY 276 mosm/kg (275-300); CALCIUM 9.1 mg/dL (8.5-10.1); CARBON DIOXIDE 25.5 mmol/L (21.0-32.0); CHLORIDE - SERUM 104 mmol/L (98-107); CREATININE - SERUM 0.8 mg/dL (0.6-1.3); GLUCOSE 80 mg/dL (74-106); POTASSIUM - SERUM 3.8 mmol/L (3.5-5.1); SODIUM 140 mmol/L (136-145); UREA NITROGEN 9 mg/dL (7-18); eGFR NON AFRICAN AMERICAN 76 mL/min (90-120)
[2019-09-13 15:08] LABS: BILIRUBIN NEGATIVE (NEGATIVE); C-REACTIVE PROTEIN < 0.2 mg/dL (0.0-0.9); GLUCOSE NEGATIVE (NEGATIVE); KETONE NEGATIVE (NEGATIVE); NITRITE NEGATIVE (NEGATIVE); SPECIFIC GRAVITY 1.015 (1.005-1.020); UROBILINOGEN NORMAL (NORMAL)
[2019-09-13 15:09] LABS: BACTERIA FEW /hpf (NEGATIVE); EPITHELIAL CELLS 0-5 /hpf (0-5); RED CELLS - URINE 0-5 /hpf (0-5)
[2019-09-13 15:11] LABS: APTT 31.3 SECONDS (22.8-39.4); INR 1.08 (0.85-1.17)
[2019-09-13 15:52] LABS: ERYTHROCYTE SEDIMENTATION RATE 6 mm/hr (0-30)
[2019-09-15] VITALS (10 sets, daily range): BP systolic 85–158; BP diastolic 52–89; BMI 17.5
--- NOTE | 2019-09-15 11:06 | NUR ---
GRONDING PAD LEFT THIGH LOT #[id number] 12/29/2023 AQUAMANTIS SETTING 11/26 PT RIGHT LEG CLEANSED WITH HIBECLENS AND ALCOHOL FROM ABOVE CREST OF HIP TO TOES CIRCUMFRENTIALLY PIOR TO PREP X3 WITH CHLORAPREP TRAFFIC KEPT TO MINIMAL
--- NOTE | 2019-09-15 14:46 | NUR ---
PT RECIEVED FROM PACU WITH BP OF 84/54. IV LR OPENED AND HOB LOWERED. DR JEAN CALLED IN SURG.
--- NOTE | 2019-09-15 14:50 | NUR ---
PT RECEIVED FROM RECOVERY VIA BED TO ROOM 2229. RESTING QUIETLY, BUT EASILY AROUSED. IV TO LEFT FOREARM WITH LR @ 50ML/HR INFUSING. SITE WITHOUT REDNESS OR EDEMA. DRESSING TO RIGHT HIP WITH NOTED BLOODY DRAINAGE, DRESSING MARKED TO MONITOR FOR FURTHER BLEEDING. ICE TO RIGHT HIP. PT DENIES PAIN AT THIS TIME. PPPX4. ORIENTED TO CL BED CONTROLS AND ROOM. PT DENIES FURTHER NEEDS AT THIS TIME. CL WITHIN REACH. ENCOURAGED TO CALL WITH NEEDS.
[2019-09-15 15:40] LABS: BASOPHILS 0.2 % (0-2); EOSINOPHILS 0.3 % (0-7); HEMATOCRIT 33.5 % (36.0-48.0); HEMOGLOBIN 10.6 g/dL (12-16); IMMATURE GRANULOCYTES 0.5 % (0-5); LYMPHOCYTES 7.3 % (15-50); MCH 29.9 pg (26.0-34.0); MCHC 31.6 g/dL (31.0-37.0); MCV 94.4 fL (80.0-100.0); MEAN PLATELET VOLUME 10.3 fL (7.4-10.4); MONOCYTES 6.9 % (2-11); NEUTROPHILS 84.8 % (40-80); PLATELET COUNT 209 10x3/uL (130-400); RBC 3.55 10x6/uL (4.00-5.40); RDW 14.9 % (11.5-14.5)
--- NOTE | 2019-09-15 20:48 | MORECARE ---
CASE MANAGEMENT DISCHARGE SUMMARY PATIENT: GLORIA TORRES HEAVEN UNIT: [id number] ADM DATE: 09/15/19 AGE: 64 : 53 SEX: F ROOM/BED: D.2230 AUTHOR: VINEET BALTAZAR PHYSICIAN: REFERRING PHYSICIAN: MALLIKA JEAN DO DATE OF SERVICE: 09/15/19 Discharge Plan Patient Name: GLORIA TORRES [facility] [facility] 1955 Planned Disposition: Home Anticipated Discharge Date: Discharge Date: Expected LOS: Initial Reviewer: [email or web address] Initial Review Date: 09/15/2019 Generated: 09/15/19 9:48 pm Patient Name: GLORIA TORRES Page [id number] at 2047 All edits/amendments must be made on the electronic document DICTATION DATE: 09/15/192047 PLATE STRAIGHTENER: RICHARD 09/15/192047 RPT#: [id number] DC DATE: STATUS: ADM IN [facility] [address] [place] [address] END OF REPORT
--- NOTE | 2019-09-15 20:55 | MORECARE ---
CASE MANAGEMENT DISCHARGE SUMMARY PATIENT: GLORIA TORRES UNIT: [id number] ADM DATE: 09/15/19 AGE: 64 : 53 SEX: F ROOM/BED: D.2230 AUTHOR: DELANEY,DOC PHYSICIAN: REFERRING PHYSICIAN: MALLIKA JEAN DO DATE OF SERVICE: 09/15/19 Discharge Plan Patient Name: GLORIA TORRES Facility: [facility]:[place] : 1955 Planned Disposition: Home Anticipated Discharge Date: Discharge Date: Expected LOS: Initial Reviewer: [email or web address] Initial Review Date: 09/15/2019 Generated: 09/15/19 9:55 pm Comments DCP- Discharge Planning Updated by [email or web address]: Adriana Brock on 09/15/19 7:[address] Patient Name: GLORIA TORRES Admission Status: Elective Accout number: [id number] Admission Date: 09-15-2019 : 1955 Admission Diagnosis: Attending: MALLIKA JEAN Current LOS: 1 Anticipated DC Date: Planned Disposition: Home Primary Insurance: [employer] Discharge Planning Comments: CM met with patient to complete initial dc planning assessment. CM educated patient on the CM role and verbal consent given by patient to complete assessment. Patient lives at home with her sister . At discharge patient plans to return home and feels this is a safe discharge. CM discussed availability of home health, rehab services, and medical equipment. patient stated that she would like home health at discharge. HILDA for [facility]. Patient would also like a bedside commode upon discharge. Patient denied any other known discharge needs at this time. CM will continue to follow and will assist as needed with dc plans/needs. Belt Conveyor Drier: Adriana Brock DCPIA - Discharge Planning Initial Assessment Updated by [email or web address]: Adriana Brock on 09/15/19 8:49 pm * Is the patient Alert and Oriented? Yes * How many steps to enter\exit or inside your home? * PCP NATALIE * [facility]acy [facility] * Preadmission Environment Home with Family * ADLs Independent * Other Equipment WALKER, [place] * List name and contact numbers for known caregivers / representatives who currently or will assist patient after discharge: NOE COHN- [phone] * Verbal permission to speak to the caregivers and representatives has been obtained from the patient. Yes * Additional services required to return to the preadmission environment? No * Can the patient safely return to the preadmission environment? Yes * Has this patient been hospitalized within the prior 30 days at any hospital? No Coverage Notice Reviewer: [email or web address] Jessi Brock Notice Issued Date-Time: 09/15/2019 20:53 Notice Type: Patient Choice Letter Notice Delivered To: Patient Relationship to Patient: Self Refractory Worker Name: Delivery Method: HAND - Hand Delivered Leti Days: Prior Verbal Notification: Recipient Understood Notice: Yes Recipient Signature: Yes Med Rec Note Co-signed by Attending: Coverage Notice Comment: Alan Givens DME Last DP export: 09/15/19 7:48 p Patient Name: GLORIA TORRES Page [phone] at 2054 All edits/amendments must be made on the electronic document DICTATION DATE: 09/15/192054 REFERRAL AGENT: RICHARD 09/15/192054 RPT#: [id number] DC DATE: STATUS: ADM IN [facility] [address] [place] [address] END OF REPORT
--- NOTE | 2019-09-15 21:03 | MORECARE ---
CASE MANAGEMENT DISCHARGE SUMMARY PATIENT: GLORIA TORRES UNIT: [id number] ADM DATE: 09/15/19 AGE: 64 : 51 SEX: F ROOM/BED: D.2230 AUTHOR: DELANEY,DOC PHYSICIAN: REFERRING PHYSICIAN: MALLIKA JEAN DO DATE OF SERVICE: 09/15/19 Discharge Plan Patient Name: GLORIA TORRES Facility: [facility]:[place] : 1955 Planned Disposition: Home Anticipated Discharge Date: Discharge Date: Expected LOS: Initial Reviewer: [email or web address] Initial Review Date: 09/15/2019 Generated: 09/15/19 10:03 pm Comments DCP- Discharge Planning Updated by [email or web address]: Adriana Brock on 09/15/19 7:[address] Patient Name: GLORIA TORRES Admission Status: Elective Accout number: [id number] Admission Date: 09-15-2019 : 1955 Admission Diagnosis: Attending: MALLIKA JEAN Current LOS: 1 Anticipated DC Date: Planned Disposition: Home Primary Insurance: [employer] Discharge Planning Comments: CM met with patient to complete initial dc planning assessment. CM educated patient on the CM role and verbal consent given by patient to complete assessment. Patient lives at home with her sister . At discharge patient plans to return home and feels this is a safe discharge. CM discussed availability of home health, rehab services, and medical equipment. patient stated that she would like home health at discharge. HILDA for [place] [facility]. Patient would also like a bedside commode upon discharge. Patient denied any other known discharge needs at this time. CM will continue to follow and will assist as needed with dc plans/needs. Equipment Engineering Technician: Adriana Brock DCPIA - Discharge Planning Initial Assessment Updated by [email or web address]: Adriana Brock on 09/15/19 8:49 pm * Is the patient Alert and Oriented? Yes * How many steps to enter\exit or inside your home? * PCP NATALIE * [facility] * Preadmission Environment Home with Family * ADLs Independent * Other Equipment WALKER, [place] * List name and contact numbers for known caregivers / representatives who currently or will assist patient after discharge: NOE COHN- [phone] * Verbal permission to speak to the caregivers and representatives has been obtained from the patient. Yes * Additional services required to return to the preadmission environment? No * Can the patient safely return to the preadmission environment? Yes * Has this patient been hospitalized within the prior 30 days at any hospital? No Coverage Notice Reviewer: [email or web address] Jessi Brock Notice Issued Date-Time: 09/15/2019 20:53 Notice Type: Patient Choice Letter Notice Delivered To: Patient Relationship to Patient: Self Forest Fire Officer Name: Delivery Method: HAND - Hand Delivered Leti Days: Prior Verbal Notification: Recipient Understood Notice: Yes Recipient Signature: Yes Med Rec Note Co-signed by Attending: Coverage Notice Comment: Alan Givens DME Last DP export: 09/15/19 7:55 p Patient Name: GLORIA TORRES Page [phone] at 2103 All edits/amendments must be made on the electronic document DICTATION DATE: 09/15/192102 LAW WRITER: RCIHARD 09/15/192102 RPT#: [id number] DC DATE: STATUS: ADM IN [facility] [address] [place] [address] END OF REPORT
[2019-09-16 05:33] LABS: BASOPHILS 0.3 % (0-2); EOSINOPHILS 1.5 % (0-7); IMMATURE GRANULOCYTES 0.3 % (0-5); LYMPHOCYTES 22.7 % (15-50); MCH 29.7 pg (26.0-34.0); MCHC 31.6 g/dL (31.0-37.0); MEAN PLATELET VOLUME 10.1 fL (7.4-10.4); NEUTROPHILS 63.2 % (40-80); RDW 15.2 % (11.5-14.5)
[2019-09-16 05:35] LABS: HEMOGLOBIN 7.9 g/dL (12-16); PLATELET COUNT 159 10x3/uL (130-400); RBC 2.66 10x6/uL (4.00-5.40); WBC 6.5 10x3/uL (4.8-10.8)
[2019-09-16 05:48] LABS: ANION GAP 9.2 mmol/L (8-16); CALCIUM 7.7 mg/dL (8.5-10.1); CARBON DIOXIDE 27.2 mmol/L (21.0-32.0); CREATININE - SERUM 1.3 mg/dL (0.6-1.3); MAGNESIUM - SERUM 1.8 mg/dL (1.8-2.4); PHOSPHOROUS 4.6 mg/dL (2.5-4.9); POTASSIUM - SERUM 4.4 mmol/L (3.5-5.1)
--- NOTE | 2019-09-16 07:00 | NUR ---
ASSISTED PATIENT ON AND OFF BEDPAN. NO FURTHER NEEDS AT THIS TIME. CL IN REACH. WCTM
--- NOTE | 2019-09-16 08:30 | NUR ---
EXPLAINED PATIENT WHY HER BLOOD PRESSURE WAS LOW. EXPLAINED WHY WE COULDN'T JUST GIVE HER A BOLUS TO BRING UP HER BLOOD PRESSURE. PATIENT VOICED UNDERSTANDING AND THANKED ME FOR EXPLAINING IT TO HER. CL IN REACH. MAYNORTM
--- NOTE | 2019-09-16 10:09 | NUR ---
PATIENT ASSISTED ON THE BED MURRAY. UNFORTUNATELY SOME SPILLED. FRESH LINENS PROVIDED. FRESH ICE WATER PROVIDED. ON PHONE WITH SON. CL IN REACH. DARRIN
[2019-09-16 10:51] VITALS: Ht 172.7 cm; Wt 52.2 kg
[2019-09-16 12:04] VITALS: BP 128/75
[2019-09-16 12:54] VITALS: BP 106/61
[2019-09-16 14:30] VITALS: BP 118/74
[2019-09-16 15:20] VITALS: BP 126/76
[2019-09-16 16:47] VITALS: BP 125/71
--- NOTE | 2019-09-16 17:10 | NUR ---
BLOOD STILL INFUSING. PATIENT STATES PAIN IS A 7 OUT OF 10 AND THAT IT IS OUT OF CONTROL. STATES, "I WILL SPEAK TO DR JEAN TOMORROW." PAIN MEDICATION ADMINISTERED. CL IN REACH. SITTING UP IN BED EATING DINNER. WCTM
[2019-09-16 20:00] VITALS: BP 122/77
[2019-09-17 04:00] VITALS: BP 128/77
[2019-09-17 05:54] LABS: BASOPHILS 0.2 % (0-2); EOSINOPHILS 1.8 % (0-7); HEMATOCRIT 26.7 % (36.0-48.0); HEMOGLOBIN 8.6 g/dL (12-16); IMMATURE GRANULOCYTES 0.4 % (0-5); LYMPHOCYTES 21.8 % (15-50); MCH 29.5 pg (26.0-34.0); MCHC 32.2 g/dL (31.0-37.0); MEAN PLATELET VOLUME 10.1 fL (7.4-10.4); MONOCYTES 13.7 % (2-11); NEUTROPHILS 62.1 % (40-80); PLATELET COUNT 132 10x3/uL (130-400); RBC 2.92 10x6/uL (4.00-5.40); WBC 4.9 10x3/uL (4.8-10.8)
[2019-09-17 06:01] LABS: MCV 91.4 fL (80.0-100.0)
[2019-09-17 06:14] LABS: ANION GAP 10.9 mmol/L (8-16); CALCIUM 8.4 mg/dL (8.5-10.1); CARBON DIOXIDE 27.2 mmol/L (21.0-32.0); MAGNESIUM - SERUM 1.9 mg/dL (1.8-2.4); POTASSIUM - SERUM 4.1 mmol/L (3.5-5.1)
[2019-09-17 06:16] LABS: CREATININE - SERUM 0.9 mg/dL (0.6-1.3)
--- NOTE | 2019-09-17 08:06 | NUR ---
PT ALERT X 4. BREATH SOUNDS CLEAR BILAT. IV TO LEFT FOREARM, PATENT, DRESSING CDI. WOUND VAC TO RIGHT HIP, NO OUTPUT. PT REPORTING PAIN OF 3/10, MEDICATED PER ORDERS, WILL MONITOR. ARIEL CAMACHO AND SCD'S IN USE BILAT. BED LOW, CALL LIGHT IN REACH. NO OTHER NEEDS AT THIS TIME.
[2019-09-17 08:33] VITALS: BP 134/75
--- NOTE | 2019-09-17 09:14 | OP ---
PATIENT NAME: GLORIA TORRES MEDICAL RECORD: [id number] :51 LOCATION:D D.2230 ADMISSION DATE:09/15/19 SURGEON: SJ JEAN, DATE OF OPERATION: 09/15/2019 PROCEDURE PERFORMED: Revision right total hip arthroplasty with open reduction internal fixation of the right proximal femur. PREOPERATIVE DIAGNOSIS: Right periprosthetic hip fracture nonunion. POSTOPERATIVE DIAGNOSIS: Right periprosthetic hip fracture nonunion. INDICATIONS: Ms. Torres is a 64-year-old female who had her hip replaced in January, I believe, of last year, 2018, fell in February, had a periprosthetic fracture. Did a revision then with a longer stem and cables. She had good relief for a short amount of time and then had continued pain. X-rayed her early in the last month and noted she had a nonunion of the fracture site which is pretty rare for that type of fracture with a hip stem, but she does smoke and is very malnourished. The patient was informed her that the stem looks like it may be loose and the femur starting to bow at the fracture site laterally. I informed her that we needed to do something or that it may fracture through the stem. She is okay with that and explained to her what we would do. We would do a revision if I could get the stem out of it if it were loose, I would take it out. If not, we would leave and replace the head and then put a strut graft on the lateral aspect and take the cables off as they may have extrangulated the bone too. Se was okay with that and was aware of the risk of infection, need for further surgery, further fracture, continued pain, continued nonunion, malunion, and need for further surgery, blood clots, and even and she signed a consent. SURGEON: Sj Jean MD DESCRIPTION OF PROCEDURE: The patient was taken to the operative suite and laid in supine position, given general anesthetic and sedated. She is given 80 mg gentamicin and 1 gram of Ancef. She was then put on the [place] table and positioned after she has been intubated. The right hip was then prepped and draped in sterile fashion. A timeout was performed. Everyone was agreeance with correct side, site, patient and procedure. We then began over the old incision through the anterior approach to the hip and careful dissection made down to the hip and cleared off the femur and removed all the old cables. I then cleaned out the fracture site also removing the hypertrophic nonunion and then down to bleeding bone. Once the bone was bleeding, I put in 4 cables; 2 proximal and 2 distal to the fracture site and then put the strut graft on laterally reducing the femur to the strut graft and it did straighten it out nicely. I then dislocated the hip and popped off the head and attempted to take out the stem, but it is a fully porous-coated and was not loose whatsoever. I did hit it with vice pulp making plant operator and a hammer or mallet rather and it did not come out at all, it is very stable. Due to that fact, we then exchanged the head, put in a -3 neck on with a ceramic head and a dual mobility. I then, after irrigating, reduced the hip and then put in a 10% povidone iodine solution with 500 mL normal saline, let it soak for 3 minutes and then irrigated out with over a liter of normal saline. I then closed down the fascia of the vastus medialis lateralis and the anterior compartment of the femur, close it down with a #1 Vicryl in [id number]-pk-yzfvj fashion and then the IT band and tensor fascia abdelrahman fascia with #1 Vicryl in a iuurku-lp-yyflm fashion and the skin with 2-0 Vicryl OPERATIVE REPORT [id number] GLORIA TORRES in inverted interrupted fashion. This was done assisted with Crow Cook, licensed and certified midwife. He assisted with closing and retraction during the case. Once the skin was closed with 2-0 Vicryl in inverted interrupted fashion, Prineo glue was placed on the skin. She was dressed with Telfa and Tegaderm and awakened and taken to recovery in stable condition. Blood loss approximately 600 mL. COMPLICATIONS: None. TRANSINT:[id number] Voice Confirmation ID: [id number] DOCUMENT ID: [id number] SJ JEAN DO at 0914 CC: [id number] DICTATION DATE: 09/15/19 1332 GARDE MANGER: 09/15/192131 [facility] [place] [address] [place] [id number]
--- NOTE | 2019-09-17 09:31 | NUR ---
ARU NOTE - The patient is a manged Medicare patient. Her preauthorization screening will be done on 09/17. Thank you for your referral.
--- NOTE | 2019-09-17 13:53 | MORECARE ---
CASE MANAGEMENT DISCHARGE SUMMARY PATIENT: GLORIA TORRES UNIT: [id number] ADM DATE: 09/15/19 AGE: 64 : 53 SEX: F ROOM/BED: D.2230 AUTHOR: DELANEY,DOC PHYSICIAN: REFERRING PHYSICIAN: MALLIKA JEAN DO DATE OF SERVICE: 09/17/19 Discharge Plan Patient Name: GLORIA TORRES Facility: [facility]:[place] : 1955 Planned Disposition: Home Anticipated Discharge Date: Discharge Date: Expected LOS: Initial Reviewer: [email or web address] Initial Review Date: 09/15/2019 Generated: 09/17/19 2:52 pm Comments DCP- Discharge Planning Updated by [id number]: Esmer Roberson on 09/17/19 12:[address] Patient Name: GLORIA TORRES Encounter No: [id number] : 1955 Primary Insurance: NOVASYSMCR Anticipated DC Date: Planned Disposition: Home External Planned Provider: : DCP follow-up note: CM MET WITH PATIENT TO DISCUSS POSSIBLE IP REHAB VS SNF PLACEMENT. PATIENT IN AGREEMENT WITH IP REHAB AT [facility], OR [facility]. PATIENT STATED SHE DOES NOT WANT TO GO TO A SNF. STATES SHE HAS BEEN TO THE IP REHAB AT THIS FACILITY AND WOULD LIKE TO RETURN. HILDA FORM PRESENTED, EXPLAINED, AND SIGNED BY THE PATIENT.THE SIGNED FORM PLACED ON THE CHART AND A SIGNED COPY LEFT WITH THE PATIENT. Esmer Roberson MSN,RN,CM DCP- Discharge Planning Updated by [id number]: Adriana Brock on 09/15/19 7:[address] Patient Name: GLORIA TORRES Admission Status: Elective Accout number: [id number] Admission Date: 09-15-2019 : 1955 Admission Diagnosis: Attending: MALLIKA JEAN Current LOS: 1 Anticipated DC Date: Planned Disposition: Home Primary Insurance: NOVASYSMCR Discharge Planning Comments: CM met with patient to complete initial dc planning assessment. CM educated patient on the CM role and verbal consent given by patient to complete assessment. Patient lives at home with her sister . At discharge patient plans to return home and feels this is a safe discharge. CM discussed availability of home health, rehab services, and medical equipment. patient stated that she would like home health at discharge. HILDA for [facility]. Patient would also like a bedside commode upon discharge. Patient denied any other known discharge needs at this time. CM will continue to follow and will assist as needed with dc plans/needs. Vascular Sonographer: Adriana Brock DCPIA - Discharge Planning Initial Assessment Updated by [id number]: Adriana Brock on 09/15/19 8:49 pm * Is the patient Alert and Oriented? Yes * How many steps to enter\exit or inside your home? * PCP NATALIE * [facility] * Preadmission Environment Home with Family * ADLs Independent * Other Equipment [place], [place] * List name and contact numbers for known caregivers / representatives who currently or will assist patient after discharge: NOE COHN [phone] * Verbal permission to speak to the caregivers and representatives has been obtained from the patient. Yes * Additional services required to return to the preadmission environment? No * Can the patient safely return to the preadmission environment? Yes * Has this patient been hospitalized within the prior 30 days at any hospital? No Coverage Notice Reviewer: [id number] - Adriana Brock Notice Issued Date-Time: 09/15/2019 20:53 Notice Type: Patient Choice Letter Notice Delivered To: Patient Relationship to Patient: Self Security Guard Dispatcher Name: Delivery Method: HAND - Hand Delivered Leti Days: Prior Verbal Notification: Recipient Understood Notice: Yes Recipient Signature: Yes Med Rec Note Co-signed by Attending: Coverage Notice Comment: [facility] POWELL Any DME Last DP export: 09/15/19 8:03 p Patient Name: GLORIA TORRES Page [id number] at 1353 All edits/amendments must be made on the electronic document DICTATION DATE: 09/17/19 1352 REFRIGERATION PLANT OPERATOR: RICHARD 09/17/19 1352 RPT#: [id number] DC DATE: STATUS: ADM IN [facility] [address] [place] [address] END OF REPORT
[2019-09-17 20:00] VITALS: BP 122/77
[2019-09-18 04:00] VITALS: BP 101/62
[2019-09-18 05:20] LABS: BASOPHILS 0.4 % (0-2); EOSINOPHILS 2.8 % (0-7); HEMATOCRIT 24.9 % (36.0-48.0); HEMOGLOBIN 7.9 g/dL (12-16); IMMATURE GRANULOCYTES 0.9 % (0-5); LYMPHOCYTES 23.5 % (15-50); MCH 29.4 pg (26.0-34.0); MCHC 31.7 g/dL (31.0-37.0); MCV 92.6 fL (80.0-100.0); MONOCYTES 15.5 % (2-11); NEUTROPHILS 56.9 % (40-80); PLATELET COUNT 140 10x3/uL (130-400); RBC 2.69 10x6/uL (4.00-5.40); RDW 15.3 % (11.5-14.5); WBC 5.4 10x3/uL (4.8-10.8)
[2019-09-18 05:36] LABS: ANION GAP 9.4 mmol/L (8-16); CALCIUM 8.3 mg/dL (8.5-10.1); CARBON DIOXIDE 30.5 mmol/L (21.0-32.0); CREATININE - SERUM 0.9 mg/dL (0.6-1.3); MAGNESIUM - SERUM 1.9 mg/dL (1.8-2.4); PHOSPHOROUS 4.1 mg/dL (2.5-4.9); POTASSIUM - SERUM 3.9 mmol/L (3.5-5.1)
[2019-09-18 08:16] VITALS: BP 120/65
--- NOTE | 2019-09-18 09:57 | MORECARE ---
CASE MANAGEMENT DISCHARGE SUMMARY PATIENT: GLORIA TORRES UNIT: [id number] ADM DATE: 09/15/19 AGE: 64 : 53 SEX: F ROOM/BED: D.2230 AUTHOR: DELANEY,DOC PHYSICIAN: REFERRING PHYSICIAN: MALLIKA JEAN DO DATE OF SERVICE: 09/18/19 Discharge Plan Patient Name: GLORIA TORRES Facility: [facility]:[place] : 1955 Planned Disposition: Home Anticipated Discharge Date: Discharge Date: Expected LOS: Initial Reviewer: [email or web address] Initial Review Date: 09/15/2019 Generated: 09/18/19 10:57 am Comments DCP- Discharge Planning Updated by [id number]: Esmer Roberson on 09/17/19 12:[address] Patient Name: GLORIA TORRES Encounter No: [id number] : 1955 Primary Insurance: NOVASYSMCR Anticipated DC Date: Planned Disposition: Home External Planned Provider: : DCP follow-up note: CM MET WITH PATIENT TO DISCUSS POSSIBLE IP REHAB VS SNF PLACEMENT. PATIENT IN AGREEMENT WITH IP REHAB AT [facility], OR [facility]. PATIENT STATED SHE DOES NOT WANT TO GO TO A SNF. STATES SHE HAS BEEN TO THE IP REHAB AT THIS FACILITY AND WOULD LIKE TO RETURN. HILDA FORM PRESENTED, EXPLAINED, AND SIGNED BY THE PATIENT.THE SIGNED FORM PLACED ON THE CHART AND A SIGNED COPY LEFT WITH THE PATIENT. Esmer Roberson MSN,RN,CM DCP- Discharge Planning Updated by [id number]: Adriana Brock on 09/15/19 7:[address] Patient Name: GLORIA TORRES Admission Status: Elective Accout number: [id number] Admission Date: 09-15-2019 : 1955 Admission Diagnosis: Attending: MALLIKA JEAN Current LOS: 1 Anticipated DC Date: Planned Disposition: Home Primary Insurance: NOVASYSMCR Discharge Planning Comments: CM met with patient to complete initial dc planning assessment. CM educated patient on the CM role and verbal consent given by patient to complete assessment. Patient lives at home with her sister . At discharge patient plans to return home and feels this is a safe discharge. CM discussed availability of home health, rehab services, and medical equipment. patient stated that she would like home health at discharge. HILDA for [facility]. Patient would also like a bedside commode upon discharge. Patient denied any other known discharge needs at this time. CM will continue to follow and will assist as needed with dc plans/needs. Assisted Living Housekeeper: Adriana Brock DCPIA - Discharge Planning Initial Assessment Updated by [email or web address]: Adriana Brock on 09/15/19 8:49 pm * Is the patient Alert and Oriented? Yes * How many steps to enter\exit or inside your home? * PCP NATALIE * [facility] * Preadmission Environment Home with Family * ADLs Independent * Other Equipment [place], [place] * List name and contact numbers for known caregivers / representatives who currently or will assist patient after discharge: NOE COHN [phone] * Verbal permission to speak to the caregivers and representatives has been obtained from the patient. Yes * Additional services required to return to the preadmission environment? No * Can the patient safely return to the preadmission environment? Yes * Has this patient been hospitalized within the prior 30 days at any hospital? No Coverage Notice Reviewer: [id number] - Adriana Brock Notice Issued Date-Time: 09/15/2019 20:53 Notice Type: Patient Choice Letter Notice Delivered To: Patient Relationship to Patient: Self Armored Car Messenger Name: Delivery Method: HAND - Hand Delivered Leti Days: Prior Verbal Notification: Recipient Understood Notice: Yes Recipient Signature: Yes Med Rec Note Co-signed by Attending: Coverage Notice Comment: [facility] Any DME Reviewer: [id number] Jessi Roberson Notice Issued Date-Time: 09/17/2019 9:48 Notice Type: Patient Choice Letter Notice Delivered To: Patient Relationship to Patient: Armored Car Messenger Name: Delivery Method: HAND - Hand Delivered Leti Days: Prior Verbal Notification: Recipient Understood Notice: Yes Recipient Signature: Yes Med Rec Note Co-signed by Attending: Coverage Notice Comment: HILDA SIGNED FOR IP REHAB/ [facility] Last DP export: 09/17/19 12:53 p Patient Name: GLORIA TORRES Page [phone] at 0957 All edits/amendments must be made on the electronic document DICTATION DATE: 09/18/19956 DENTURE PROCESSOR: DM 09/18/19956 RPT#: [id number] DC DATE: STATUS: ADM IN [facility] [address] [place] [address] END OF REPORT
[2019-09-18 13:39] VITALS: BP 132/70
--- NOTE | 2019-09-18 14:42 | NUR ---
OT NOTE: PT COMPLETED SUPINE TO SIT WITH SBA. PT COMPLETED EOB SITTING WITH SBA. PT COMPLETED ADL MOB WITH CGA. PT COMPLETED TOILET HYGIENE WTH SBA. PT COMPLETED HAND HYGIENE WITH SET UP. [phone] THANK YOU,SANJIV MILLER
--- NOTE | 2019-09-18 14:59 | NUR ---
Nutrition follow-up: Diet: Regular PO intake 75-100% of meals Labs reviewed Wt: 115# RDN following.
[2019-09-18 16:20] VITALS: BP 93/54
--- NOTE | 2019-09-18 19:35 | NUR ---
UP TO BSC. ALERT AND ORIENTED X4. SCD IN USE BILAT. ARIEL HOSE IN USE BILAT. RATES PAIN IN RT HIP 6. WOUND VAC TO RT HIP WITH NO DRAINAGE IN TUBING. NO IV ACCESS. RESP EVEN AND NONLABORED. NO DISTRESS. SR ELEVATED X2. CL IN REACH.
[2019-09-18 20:00] VITALS: BP 99/60
--- NOTE | 2019-09-18 21:05 | NUR ---
MEDICATED WITH [facility] PER REQUEST.
--- NOTE | 2019-09-18 22:45 | NUR ---
MEDICATED WITH DILAUDID FOR C/O RT HIP PAIN. CL IN REACH.
[2019-09-19] VITALS: BP 121/88
[2019-09-19 04:00] VITALS: BP 115/88
--- NOTE | 2019-09-19 04:05 | NUR ---
MEDICATED WITH DILAUDID FOR C/O PAIN IN RT HIP. CL IN REACH. DENIES ANY OTHER NEEDS. NO DISTRESS.
[2019-09-19 05:26] LABS: BASOPHILS 0.2 % (0-2); HEMATOCRIT 25.7 % (36.0-48.0); HEMOGLOBIN 8.1 g/dL (12-16); IMMATURE GRANULOCYTES 0.4 % (0-5); LYMPHOCYTES 20.9 % (15-50); MCH 29.5 pg (26.0-34.0); MCHC 31.5 g/dL (31.0-37.0); MCV 93.5 fL (80.0-100.0); MEAN PLATELET VOLUME 9.8 fL (7.4-10.4); MONOCYTES 15.1 % (2-11); NEUTROPHILS 60.4 % (40-80); RBC 2.75 10x6/uL (4.00-5.40); RDW 14.9 % (11.5-14.5); WBC 4.7 10x3/uL (4.8-10.8)
[2019-09-19 05:36] LABS: PLATELET COUNT 170 10x3/uL (130-400)
[2019-09-19 05:50] LABS: CALC OSMOLALITY 277 mosm/kg (275-300); CALCIUM 8.4 mg/dL (8.5-10.1); CHLORIDE - SERUM 104 mmol/L (98-107); CREATININE - SERUM 0.8 mg/dL (0.6-1.3); GLUCOSE 113 mg/dL (74-106); PHOSPHOROUS 4.3 mg/dL (2.5-4.9); POTASSIUM - SERUM 3.9 mmol/L (3.5-5.1); SODIUM 138 mmol/L (136-145); eGFR NON AFRICAN AMERICAN 76 mL/min (90-120)
[2019-09-19 05:51] LABS: UREA NITROGEN 15 mg/dL (7-18)
[2019-09-19] MEDS ORDERED: ELIQUIS2.5 MG PO (07:15)
[2019-09-19] MEDS ORDERED: DILAUDID4 MG PO (07:16)
[2019-09-19] MEDS ORDERED: OMNICEF300 MG PO (07:17)
[2019-09-19] MEDS ORDERED: VISTARIL50 MG PO (07:17)
[2019-09-19] MEDS ORDERED: Vitamin D PO (07:22)
[2019-09-19 08:55] VITALS: BP 107/67
--- NOTE | 2019-09-19 09:01 | NUR ---
PT ALERT X 4. BREATH SOUNDS CLEAR BILAT. NO IV ACCESS AT THIS TIME. WOUND VAC TO RIGHT HIP. PT REPORTING PAIN OF 5/10, MEDICATED PER ORDERS, WILL MONITOR. PT DISCHARGING TODAY. BED LOW, CALL LIGHT IN REACH. NO OTHER NEEDS AT THIS TIME.
--- NOTE | 2019-09-19 10:24 | NUR ---
Rehab Note- Received fax & voicemail that the patient has been approved for an acute hospital stay, Auth #[id number]. Approved per Laurie with Brian, her contact # is [phone], approved 09/18-09/25 w/ clinicals updates due on 09/25. Spoke w/ MONICA Wright to notify her of approval. Thank you for this referral! Gloria Freitas RN Clinical Liaison, [facility] Rehab
--- NOTE | 2019-09-19 11:16 | NUR ---
OT NOTE: PT REPORTS THAT SHE FEELS MUCH BETTER TODAY. LESS PAIN AND MORE MOBILITY. STATES THAT SHE IS GOING TO REHAB AT SOME POINT TODAY. PT ABLE TO PERFORM TRANSFERS TO BS COMMODE WITH CGA; PT DOING WELL WITH WT BEARING PRECAUTIONS. MIN/SET UP FOR UE ADLS BUT INCREASED ASSIST REQUIRED WITH LE ADLS. PT MOTIVATED TO IMPROVE AND RETURN HOME. SHENA ORTEGA, OTR/L [phone]
--- NOTE | 2019-09-19 16:48 | MORECARE ---
CASE MANAGEMENT DISCHARGE SUMMARY PATIENT: GLORIA TORRES UNIT: [id number] ADM DATE: 09/15/19 AGE: 64 : 53 SEX: F ROOM/BED: D.2230 AUTHOR: DELANEY,DOC PHYSICIAN: REFERRING PHYSICIAN: MALLIKA JEAN DO DATE OF SERVICE: 09/19/19 Discharge Plan Patient Name: GLORIA TORRES Facility: [facility]:[place] : 1955 Planned Disposition: Inpatient Rehab Anticipated Discharge Date: 09/19/19 Discharge Date: 09/19/2019 Expected LOS: 4 Initial Reviewer: [id number] Initial Review Date: 09/15/2019 Generated: 09/19/19 5:47 pm Comments DCP- Discharge Planning Updated by [id number]: Esmer Roberson on 09/17/19 12:[address] Patient Name: GLORIA TORRES Encounter No: [id number] : 1955 Primary Insurance: NOVASYSMCR Anticipated DC Date: Planned Disposition: Home External Planned Provider: : DCP follow-up note: CM MET WITH PATIENT TO DISCUSS POSSIBLE IP REHAB VS SNF PLACEMENT. PATIENT IN AGREEMENT WITH IP REHAB AT [facility], OR [facility]. PATIENT STATED SHE DOES NOT WANT TO GO TO A SNF. STATES SHE HAS BEEN TO THE IP REHAB AT THIS FACILITY AND WOULD LIKE TO RETURN. HILDA FORM PRESENTED, EXPLAINED, AND SIGNED BY THE PATIENT.THE SIGNED FORM PLACED ON THE CHART AND A SIGNED COPY LEFT WITH THE PATIENT. Esmer Roberson MSN,RN,CM DCP- Discharge Planning Updated by [id number]: Adriana Brock on 09/15/19 7:[address] Patient Name: GLORIA TORRES Admission Status: Elective Accout number: [id number] Admission Date: 09-15-2019 : 1955 Admission Diagnosis: Attending: MALLIKA JEAN Current LOS: 1 Anticipated DC Date: Planned Disposition: Home Primary Insurance: NOVASYSMCR Discharge Planning Comments: CM met with patient to complete initial dc planning assessment. CM educated patient on the CM role and verbal consent given by patient to complete assessment. Patient lives at home with her sister . At discharge patient plans to return home and feels this is a safe discharge. CM discussed availability of home health, rehab services, and medical equipment. patient stated that she would like home health at discharge. H[facility] for [facility]. Patient would also like a bedside commode upon discharge. Patient denied any other known discharge needs at this time. CM will continue to follow and will assist as needed with dc plans/needs. Cracker Dough Mixer: Adriana Brock DCPIA - Discharge Planning Initial Assessment Updated by [id number]: Adriana Brock on 09/15/19 8:49 pm * Is the patient Alert and Oriented? Yes * How many steps to enter\exit or inside your home? * PCP NATALIE * [facility] * Preadmission Environment Home with Family * ADLs Independent * Other Equipment [place], [place] * List name and contact numbers for known caregivers / representatives who currently or will assist patient after discharge: NOE COHN- [phone] * Verbal permission to speak to the caregivers and representatives has been obtained from the patient. Yes * Additional services required to return to the preadmission environment? No * Can the patient safely return to the preadmission environment? Yes * Has this patient been hospitalized within the prior 30 days at any hospital? No Coverage Notice Reviewer: [id number] - Adriana Brock Notice Issued Date-Time: 09/15/2019 20:53 Notice Type: Patient Choice Letter Notice Delivered To: Patient Relationship to Patient: Self Bliss Press Operator Name: Delivery Method: HAND - Hand Delivered Leti Days: Prior Verbal Notification: Recipient Understood Notice: Yes Recipient Signature: Yes Med Rec Note Co-signed by Attending: Coverage Notice Comment: [facility] PWOELL Any DME Reviewer: [email or web address] Jessi Roberson Notice Issued Date-Time: 09/17/2019 9:48 Notice Type: Patient Choice Letter Notice Delivered To: Patient Relationship to Patient: Bliss Press Operator Name: Delivery Method: HAND - Hand Delivered Leti Days: Prior Verbal Notification: Recipient Understood Notice: Yes Recipient Signature: Yes Med Rec Note Co-signed by Attending: Coverage Notice Comment: HILDA SIGNED FOR IP REHAB/ [facility] Reviewer: [id number] - Esmer Roberson Notice Issued Date-Time: 09/18/2019 9:50 Notice Type: IM Discharge Notice Notice Delivered To: Patient Relationship to Patient: Bliss Press Operator Name: Delivery Method: HAND - Hand Delivered Leti Days: Prior Verbal Notification: Recipient Understood Notice: Yes Recipient Signature: Yes Med Rec Note Co-signed by Attending: Coverage Notice Comment: [facility] IMM SIGNED, AND COPY LEFT ON CHART. Last DP export: 09/18/19 8:57 a Patient Name: GLORIA TORRES Page [id number] at 1648 All edits/amendments must be made on the electronic document DICTATION DATE: 09/19/191646 PICK UP AND DELIVERY DRIVER: RICHARD 09/19/191646 RPT#: [id number] DC DATE:09/19/19 STATUS: DIS IN [facility] [address] [place] [address] END OF REPORT
--- NOTE | 2019-09-19 16:55 | MORECARE ---
CASE MANAGEMENT DISCHARGE SUMMARY PATIENT: GLORIA TORRES UNIT: [id number] ADM DATE: 09/15/19 AGE: 64 : [birth year] SEX: F ROOM/BED: D.2230 AUTHOR: DELANEY,VINEET PHYSICIAN: REFERRING PHYSICIAN: MALLIKA JEAN DO DATE OF SERVICE: 09/19/19 Discharge Plan Patient Name: GLORIA TORRES Facility: [facility]:[place] : 1955 Planned Disposition: Inpatient Rehab Anticipated Discharge Date: 09/19/19 Discharge Date: 09/19/2019 Expected LOS: 4 Initial Reviewer: [id number] Initial Review Date: 09/15/2019 Generated: 09/19/19 5:54 pm Comments DCP- Discharge Planning Updated by [email or web address]: Jeremy Chu on 09/19/19 3:[address] Patient Name: GLORIA TORRES Encounter No: [id number] : 1955 Primary Insurance: NOVASYSMCR Anticipated DC Date: 09-19-2019 Planned Disposition: Inpatient Rehab External Planned Provider: [facility] DCP follow-up note: CM SPOKE TO [facility] OF INPATIENT REHAB, THEY PLAN TO ACCEPT PT TODAY FOR REHAB. PT NOTIFIED, IN AGREEMENT WITH DISCHARGE TO INPATIENT REHAB. PT ADMITTED TO [facility]. VALET PARKER: MONTSE BROCK RN DCP- Discharge Planning Updated by [id number]: Esmer Roberson on 09/17/19 12:[address] Patient Name: GLORIA TORRES Encounter No: [id number] : 1955 Primary Insurance: NOVASYSMCR Anticipated DC Date: Planned Disposition: Home External Planned Provider: : DCP follow-up note: CM MET WITH PATIENT TO DISCUSS POSSIBLE IP REHAB VS SNF PLACEMENT. PATIENT IN AGREEMENT WITH IP REHAB AT [facility], OR [facility]. PATIENT STATED SHE DOES NOT WANT TO GO TO A SNF. STATES SHE HAS BEEN TO THE IP REHAB AT THIS FACILITY AND WOULD LIKE TO RETURN. HILDA FORM PRESENTED, EXPLAINED, AND SIGNED BY THE PATIENT.THE SIGNED FORM PLACED ON THE CHART AND A SIGNED COPY LEFT WITH THE PATIENT. Esmer Edds MSN,RN,CM DCP- Discharge Planning Updated by [email or web address]: Montse Brock on 09/15/19 7:[address] Patient Name: GLORIA TORRES Admission Status: Elective Accout number: [id number] Admission Date: 09-15-2019 : 1955 Admission Diagnosis: Attending: MALLIKA JEAN Current LOS: 1 Anticipated DC Date: Planned Disposition: Home [facility] Discharge Planning Comments: CM met with patient to complete initial dc planning assessment. CM educated patient on the CM role and verbal consent given by patient to complete assessment. Patient lives at home with her sister . At discharge patient plans to return home and feels this is a safe discharge. CM discussed availability of home health, rehab services, and medical equipment. patient stated that she would like home health at discharge. HILDA for Alan POWELL. Patient would also like a bedside commode upon discharge. Patient denied any other known discharge needs at this time. CM will continue to follow and will assist as needed with dc plans/needs. Preschool Adviser: Montse Brock DCPIA - Discharge Planning Initial Assessment Updated by [email or web address]: Montse Brock on 09/15/19 8:49 pm * Is the patient Alert and Oriented? Yes * How many steps to enter\exit or inside your home? * PCP NATALIE * [facility]acy [facility] * Preadmission Environment Home with Family * ADLs Independent * Other Equipment [place] * List name and contact numbers for known caregivers / representatives who currently or will assist patient after discharge: NOE COHN [phone] * Verbal permission to speak to the caregivers and representatives has been obtained from the patient. Yes * Additional services required to return to the preadmission environment? No * Can the patient safely return to the preadmission environment? Yes * Has this patient been hospitalized within the prior 30 days at any hospital? No Coverage Notice Reviewer: [id number] Jessi Brock Notice Issued Date-Time: 09/15/2019 20:53 Notice Type: Patient Choice Letter Notice Delivered To: Patient Relationship to Patient: Self Industrial Hygenist Name: Delivery Method: HAND - Hand Delivered Leti Days: Prior Verbal Notification: Recipient Understood Notice: Yes Recipient Signature: Yes Med Rec Note Co-signed by Attending: Coverage Notice Comment: [facility] Any DME Reviewer: [email or web address] Jessi Roberson Notice Issued Date-Time: 09/17/2019 9:48 Notice Type: Patient Choice Letter Notice Delivered To: Patient Relationship to Patient: Industrial Hygenist Name: Delivery Method: HAND - Hand Delivered Leti Days: Prior Verbal Notification: Recipient Understood Notice: Yes Recipient Signature: Yes Med Rec Note Co-signed by Attending: Coverage Notice Comment: HILDA SIGNED FOR IP REHAB/ [facility] Reviewer: [id number] Jessi Roberson Notice Issued Date-Time: 09/18/2019 9:50 Notice Type: IM Discharge Notice Notice Delivered To: Patient Relationship to Patient: Industrial Hygenist Name: Delivery Method: HAND - Hand Delivered Leti Days: Prior Verbal Notification: Recipient Understood Notice: Yes Recipient Signature: Yes Med Rec Note Co-signed by Attending: Coverage Notice Comment: [facility] IMM SIGNED, AND COPY LEFT ON CHART. Last DP export: 09/19/19 3:48 p Patient Name: GLORIA TORRES Page [phone] at 1655 All edits/amendments must be made on the electronic document DICTATION DATE: 09/19/191653 POTATO CHIP MAKER: RICHARD 09/19/191653 RPT#: [id number] DC DATE:09/19/19 STATUS: DIS IN [facility] [address] [place] [address] END OF REPORT
== END 2019-09-19 16:03 | DRG 466 ==
LOC: D.MS 09-15 07:30 → D.SDCHOLD 09-15 07:30 → D.MS 09-15 14:07
PROVIDERS: Internal Medicine Nephrology; ADMIT Orthopaedic Surgery; ATTEND Orthopaedic Surgery
PROC: 0SP90JZ Removal of Synthetic Substitute from Right Hip Joint, Open Approach (ICD-10-PCS; 2019-09-15)
PROC: 0QS604Z Reposition Right Upper Femur with Internal Fixation Device, Open Approach (ICD-10-PCS; 2019-09-15)
PROC: 0SR90JZ Replacement of Right Hip Joint with Synthetic Substitute, Open Approach (ICD-10-PCS; principal; 2019-09-15 08:30)
DX: M97.01XA Periprosthetic fracture around internal prosthetic right hip joint, initial encounter (principal); S72.91XA Unspecified fracture of right femur, initial encounter for closed fracture; N17.0 Acute kidney failure with tubular necrosis; F17.203 Nicotine dependence unspecified, with withdrawal; K74.60 Unspecified cirrhosis of liver; I10 Essential (primary) hypertension; J44.9 Chronic obstructive pulmonary disease, unspecified; K21.9 Gastro-esophageal reflux disease without esophagitis; D64.9 Anemia, unspecified; F41.8 Other specified anxiety disorders; I25.10 Atherosclerotic heart disease of native coronary artery without angina pectoris

== ENCOUNTER 2019-09-19 12:13 | Inpatient (IN) | payer MEDICARE ==
[~2019-09-19] VITALS: Ht 175.3 cm; Wt 52.2 kg
[~2019-09-19 12:13] MED LIST changes: +DILAUDID4 MG PO; +OMNICEF300 MG PO; +Vitamin D PO
--- NOTE | 2019-09-19 15:05 | NUR ---
RECIEVED PER WC TO ROOM 1115;ORIENTED TO ROOM AND CL.
[2019-09-19 16:22] VITALS: BP 107/70; BMI 17.0
--- NOTE | 2019-09-19 19:09 | NUR ---
GREETED PATIENT AND INTRODUCED MYSELF HER NURSE. PATIENT IS LAYING IN BED WATCHING TV AT THIS TIME. BEDSIDE SHIFT REPORT COMPLETED FROM OFF GOING NURSE. RESPIRATIONS EVEN. NO S/S OF DISTRESS. DENIES ANY FURTHER NEEDS AT THIS TIME. CALL LIGHT WITHIN REACH ON LEFT SIDE OF PATIENT.
[2019-09-19 19:33] VITALS: BP 104/66
--- NOTE | 2019-09-19 23:43 | NUR ---
PT AWAKE LAYING IN BED WATCHING TV. RIGHT LEG ELEVATED ON PILLOW FOR COMFORT. WOUND VAC OPERATING PROPERLY. RESPIRATIONS EVEN. NO S/S OF DISTRESS. CALL LIGHT WITHIN REACH ON PATIENTS RIGHT SIDE.
[2019-09-20 06:52] LABS: BASOPHILS 0.2 % (0-2); EOSINOPHILS 4.8 % (0-7); HEMATOCRIT 25.4 % (36.0-48.0); IMMATURE GRANULOCYTES 0.7 % (0-5); LYMPHOCYTES 18.1 % (15-50); MCH 29.4 pg (26.0-34.0); MCHC 31.5 g/dL (31.0-37.0); MCV 93.4 fL (80.0-100.0); MEAN PLATELET VOLUME 10.5 fL (7.4-10.4); MONOCYTES 12.9 % (2-11); NEUTROPHILS 63.3 % (40-80); RBC 2.72 10x6/uL (4.00-5.40); RDW 14.4 % (11.5-14.5); WBC 4.4 10x3/uL (4.8-10.8)
[2019-09-20 06:59] LABS: CALC OSMOLALITY 275 mosm/kg (275-300); CALCIUM 8.1 mg/dL (8.5-10.1); CARBON DIOXIDE 28.9 mmol/L (21.0-32.0); CHLORIDE - SERUM 103 mmol/L (98-107); CREATININE - SERUM 0.8 mg/dL (0.6-1.3); GLUCOSE 106 mg/dL (74-106); POTASSIUM - SERUM 3.9 mmol/L (3.5-5.1); SODIUM 138 mmol/L (136-145); UREA NITROGEN 12 mg/dL (7-18); eGFR NON AFRICAN AMERICAN 76 mL/min (90-120)
[2019-09-20 07:05] LABS: PLATELET COUNT 206 10x3/uL (130-400)
[2019-09-20 07:35] VITALS: BP 103/60
--- NOTE | 2019-09-20 08:00 | NUR ---
SHIFT ASSMT COMPLETED.WND VAC PROVENA IN PLACE RT HIP AND WORKING APPROP.
[2019-09-20 12:11] VITALS: Ht 175.3 cm; Wt 52.2 kg
--- NOTE | 2019-09-20 14:29 | NUR ---
CARE TEAM MEETING: PATIENT IS NEW TO UNIT AND WILL BE RA AT NEXT MEETING. HER PCP IS DR. ESTRADA AND AT DISCHARGE SHE WOULD LIKE TO HAVE [facility] HOME FOR HOME HEALTH. WILL CONTINUE TO FOLLOW WITH PATIENT.
--- NOTE | 2019-09-20 19:52 | NUR ---
PT UP TO TOILET TWICE SINCE START OF SHIFT, NO OTHER NEEDS NOTED, TRANSFERS WELL, WOUND VAC WORKING PROPERLY TO RT HIP, FALL PRECAUTIONS IN PLACE, FLUIDS/CALL LIGHT WITHIN REACH
--- NOTE | 2019-09-20 22:46 | NUR ---
PT ASLEEP, AROUSES EASILY TO VOICE, PAIN EASED FROM TIME OF MED PASS, FALL PRECAUTIONS IN PLACE, FLUIDS/CALL LIGHT WITHIN REACH
--- NOTE | 2019-09-21 04:23 | NUR ---
PT UP TO TOILET C/O RT HIP PAIN, PRN DILUADID GIVEN, FALL PRECAUTIONS IN PLACE, FLUIDS/CALL LIGHT WITHIN REACH, NEWS PAPER DELIVERED
--- NOTE | 2019-09-21 07:25 | NUR ---
A/A/0X4 SITTING UP IN BED WATCHING TV. STATES SHE IS HAVING SOME PAIN BUT NOT YET TIME FOR PAIN MED AND STATES SHE CAN WAIT UNTIL IT IS TIME. WOUND VAC OPERATING PROPERLY WITH BLOODY DRAINAGE IN CHAMBER. SIDERAILS UP X 2, CALL LIGHT IN REACH AND BED IN LOW LOCKED POSITION. WILL CONTINUE POC.
[2019-09-21 07:58] VITALS: BP 83/44
--- NOTE | 2019-09-21 10:55 | NUR ---
REQUESTED PAIN MED AND GIVEN DILAUDID 4 MG PO. NO OTHER REQUESTS VOICED.
--- NOTE | 2019-09-21 14:30 | NUR ---
REQUESTED MED FOR PAIN AND GIVEN VISTARIL ORDERED. ASSISTED UP TO BATHROOM AND TOLERATED WELL.
--- NOTE | 2019-09-21 19:15 | NUR ---
PT SITTING UP IN BED. CL IN REACH. DENIES NEEDS OR PAIN AT THIS TIME. BED IN LOW SIDE RAILS X2. A/O X4. LUNGS CLEAR. BOWEL ACTIVE X4. WOUND VAC TO RIGHT HIP. LUNGS CLEAR. BOWEL ACTIVE X4. RESP EVEN AND UNLABORED. WILL CONTINUE TO MONITOR.
--- NOTE | 2019-09-22 00:24 | NUR ---
I have reviewed this patient and I concur with the Shift Assessment completed by the Licensed Practical Nurse today this shift.
[2019-09-22 05:33] LABS: BASOPHILS 0.4 % (0-2); EOSINOPHILS 3.2 % (0-7); HEMOGLOBIN 7.8 g/dL (12-16); IMMATURE GRANULOCYTES 0.4 % (0-5); LYMPHOCYTES 19.6 % (15-50); MCH 29.4 pg (26.0-34.0); MCHC 31.2 g/dL (31.0-37.0); MCV 94.3 fL (80.0-100.0); MEAN PLATELET VOLUME 10.3 fL (7.4-10.4); MONOCYTES 13.4 % (2-11); PLATELET COUNT 235 10x3/uL (130-400); RBC 2.65 10x6/uL (4.00-5.40); RDW 14.4 % (11.5-14.5)
[2019-09-22 05:39] LABS: ANION GAP 7.1 mmol/L (8-16); CALCIUM 8.7 mg/dL (8.5-10.1); CARBON DIOXIDE 31.3 mmol/L (21.0-32.0); CREATININE - SERUM 0.9 mg/dL (0.6-1.3); POTASSIUM - SERUM 4.4 mmol/L (3.5-5.1)
[2019-09-22 07:38] VITALS: BP 100/56
--- NOTE | 2019-09-22 11:53 | NUR ---
Nutrition Follow-up: Eating well. Noted 100% eaten this AM. Diet: Regular, Ensure TID PO intake: 50-100% No new wt; last wt: 115# (09/19) Last BM: 09/20 Labs reviewed Meds noted: vitamin D, Lactulose -Encourage PO intake and honor food preferences. -Monitor wt. -RD following.
--- NOTE | 2019-09-22 12:23 | NUR ---
SITTING UP IN WC IN ROOM EATING LUNCH. JUST GAVE PAIN MEDS AT HER REQUEST. DENIES NEEDS AT PRESENT. CALL LIGHT IN REACH
--- NOTE | 2019-09-22 19:30 | NUR ---
PATIENT RECEIVED SITTING UP IN BED. BLOOD INFUSION CONTINUES. VITAL SIGNS & ASSESSMENT DONE. BED LOW. ALARM ON. CALL LIGHT WITHIN REACH. WILL CONTINUE TO MONITOR.
--- NOTE | 2019-09-22 20:00 | NUR ---
PATIENT BLOOD TRANSFUSION FINISHED. NO ADVERSE REACTION AT THIS TIME. IV FLUSHED WITH NS. IV SITE CAPPED OFF. BED LOW. CALL LIGHT WITHIN REACH. WILL CONTINUE TO MONITOR.
[2019-09-22 21:45] VITALS: BP 111/72
--- NOTE | 2019-09-23 02:59 | NUR ---
I have reviewed this patient and I concur with the Shift Assessment completed by the Licensed Practical Nurse today this shift.
--- NOTE | 2019-09-23 04:27 | NUR ---
PATIENT EYES CLOSED. RESPIRATIONS 18 & EVEN. BED LOW. ALARM ON. CALL LIGHT WITHIN REACH. WILL CONTINUE TO MONITOR.
--- NOTE | 2019-09-23 07:59 | NUR ---
REQUESTING MED FOR PAIN AND GIVEN VISTARIL ORDERED. NO OTHER COMPLAINTS OR REQUESTS VOICED. WOUND VAC IN PLACE AND OPERATING PROPERLY. DRESSING TO RIGHT HIP PATENT. SIDERAILS UP X 2, CALL LIGHT AND WATER IN REACH, BED IN LOW LOCKED POSITION. WILL CONTINUE POC.
[2019-09-23 11:00] VITALS: BP 100/66
--- NOTE | 2019-09-23 13:00 | NUR ---
I have reviewed this patient and I concur with the Shift Assessment completed by the Licensed Practical Nurse today this shift.
--- NOTE | 2019-09-23 20:26 | NUR ---
AWAKE,ALERT.NO COMPLAINTS VOICED AT THIS TIME. SL TO RFA INTACT WITHOUT REDNESS OR EDEMA NOTED. WOUND VAC INTACT TO RIGHT HIP. NO DRAINAGE NOTED. CL IN REACH
[2019-09-23 21:46] VITALS: BP 102/56
--- NOTE | 2019-09-24 01:27 | NUR ---
I have reviewed this patient and I concur with the Shift Assessment completed by the Licensed Practical Nurse today this shift.
[2019-09-24 08:06] VITALS: BP 86/48
--- NOTE | 2019-09-24 13:00 | NUR ---
I have reviewed this patient and I concur with the Shift Assessment completed by the Licensed Practical Nurse today this shift.
--- NOTE | 2019-09-24 19:20 | NUR ---
SITTING UP IN BED WATCHING TV. ALERT AND ORIENTED X4. RESP EVEN AND NONLABORED. RATES PAIN IN RT HIP 6. NO IV ACCESS. WOUND VAC NOTED TO RT HIP WITH NO DRAINAGE. SR ELEVATED X2. CL IN REACH.
[2019-09-24 19:45] VITALS: BP 107/69
--- NOTE | 2019-09-24 20:10 | NUR ---
MEDICATED WITH DILAUDID FOR C/O PAIN IN RT HIP RATING 7. CL IN REACH.
--- NOTE | 2019-09-24 23:37 | NUR ---
MEDICATED WITH [facility] PER REQUEST.
--- NOTE | 2019-09-25 01:59 | NUR ---
C/O PAIN IN RT HIP. MEDICATED WITH DILAUDID PER REQUEST. CL IN REACH.
[2019-09-25 06:48] LABS: BASOPHILS 0.4 % (0-2); EOSINOPHILS 2.9 % (0-7); HEMOGLOBIN 9.3 g/dL (12-16); IMMATURE GRANULOCYTES 0.6 % (0-5); LYMPHOCYTES 22.9 % (15-50); MCH 28.7 pg (26.0-34.0); MCV 92.6 fL (80.0-100.0); MEAN PLATELET VOLUME 10.7 fL (7.4-10.4); MONOCYTES 13.1 % (2-11); NEUTROPHILS 60.1 % (40-80); PLATELET COUNT 276 10x3/uL (130-400); RBC 3.24 10x6/uL (4.00-5.40); RDW 16.3 % (11.5-14.5); WBC 5.1 10x3/uL (4.8-10.8)
[2019-09-25 07:01] LABS: ANION GAP 8.3 mmol/L (8-16); CALCIUM 8.7 mg/dL (8.5-10.1); CARBON DIOXIDE 31.1 mmol/L (21.0-32.0); CREATININE - SERUM 0.9 mg/dL (0.6-1.3); POTASSIUM - SERUM 4.4 mmol/L (3.5-5.1)
[2019-09-25 07:54] VITALS: BP 126/76
--- NOTE | 2019-09-25 14:03 | NUR ---
SITTING UP IN BED WATCHING TV. AGREED TO TAKE 1300 PM DOSE OF LACTULOSE. HAS BEEN DECLINING DOSES. WOUND VAC STILL ON RT HIP. DENIES NEEDS OR C/O. CALL LIGHT IN REACH. BED IN LOWEST POSITION, SIDE RAILS UP X2.
--- NOTE | 2019-09-25 20:00 | NUR ---
PT IS RESTING IN BED WITH EYES OPEN. ALERT AND ORIENTED X 3. DENIES ANY PAIN OR DISCOMFORT AT THIS TIME. NO NEEDS VOICED. SR'S ARE UP X 2 IN BED. CALL LIGHT AND BEDSIDE TABLE ARE WITHIN EASY REACH.
--- NOTE | 2019-09-25 23:03 | NUR ---
PT IS RESTING QUIETLY IN BED WITH EYES CLOSED. NO DISTRESS NOTED.
--- NOTE | 2019-09-26 03:07 | NUR ---
I have reviewed this patient and I concur with the Shift Assessment completed by the Licensed Practical Nurse today this shift.
--- NOTE | 2019-09-26 05:42 | NUR ---
PT IS RESTING QUIETLY IN BED WITH EYES CLOSED. NO ACUTE DISTRESS NOTED.
[2019-09-26 08:00] VITALS: BP 124/70
--- NOTE | 2019-09-26 08:00 | NUR ---
PT RESTING IN BED WITH EYES OPEN CALL LIGTH IN REACH NO PROBLEMS WILL MONITER
--- NOTE | 2019-09-26 10:44 | NUR ---
CLINICAL UPDATES FAXED TO ASHLI VARGAS AT , AUTH. # [id number] WITH CONFORMATION RECIEVED. TENATIVE DISCHARGE DATE IS 10/03/19. WILL CONTINUE TO FOLLOW WITH PATIENT..
--- NOTE | 2019-09-26 13:10 | NUR ---
Nutrition follow-up: Diet: Regular PO intake ~75% average of most meals Labs reviewed Wound VAC to hip Wt: 115# +BM PO intake remains good RDN following.
--- NOTE | 2019-09-26 19:28 | NUR ---
PT SITTING UP IN BED WATCHING TV. CL IN REACH. DENIES NEEDS OR PAIN AT THIS TIME. BED IN LOW SIDE RAILS X2. A/O X4. LUNGS CLEAR. BOWEL ACTIVE X4. RESP EVEN AND UNLABORED. WILL CONTINUE TO MONITOR.
--- NOTE | 2019-09-27 03:51 | NUR ---
I have reviewed this patient and I concur with the Shift Assessment completed by the Licensed Practical Nurse today this shift.
[2019-09-27 07:13] LABS: BASOPHILS 0.4 % (0-2); HEMATOCRIT 31.5 % (36.0-48.0); HEMOGLOBIN 9.7 g/dL (12-16); IMMATURE GRANULOCYTES 0.7 % (0-5); LYMPHOCYTES 19.8 % (15-50); MCH 28.2 pg (26.0-34.0); MCHC 30.8 g/dL (31.0-37.0); MCV 91.6 fL (80.0-100.0); MEAN PLATELET VOLUME 10.6 fL (7.4-10.4); MONOCYTES 11.9 % (2-11); NEUTROPHILS 64.2 % (40-80); PLATELET COUNT 323 10x3/uL (130-400); RBC 3.44 10x6/uL (4.00-5.40); RDW 15.5 % (11.5-14.5); WBC 5.4 10x3/uL (4.8-10.8)
[2019-09-27 07:28] LABS: ANION GAP 9.9 mmol/L (8-16); CALCIUM 8.8 mg/dL (8.5-10.1); CARBON DIOXIDE 28.6 mmol/L (21.0-32.0); CREATININE - SERUM 0.9 mg/dL (0.6-1.3); POTASSIUM - SERUM 4.5 mmol/L (3.5-5.1)
[2019-09-27 08:56] VITALS: BP 88/52
--- NOTE | 2019-09-27 15:45 | NUR ---
CARE TEAM MEETING: PATIENT IS DOING WELL IN THERAPY . HER TENATIVE DISCHARGE DATE IS 10/03/19. WILL CONTINUE TO FOLLOW WITH PATIENT.
[2019-09-27 20:09] VITALS: BP 103/64
--- NOTE | 2019-09-27 20:14 | NUR ---
PT SITTING UP ON SIDE OF BED IN WHEELCHAIR. NO SIGNS OR SYMPTOMS OF DISTRESS NOTED. RESPIRATIONS EVEN AND UNLABORED. PT HAS NO COMPLAINTS AT THIS TIME. PT ENCOURAEGD TO CALL FOR HELP WHEN NEEDED. CALL LIGHT WITH IN REACH. WILL CONTINUE TO MONITOR
--- NOTE | 2019-09-27 21:15 | NUR ---
PRN PAIN MEDICATION GIVEN FOR 5/10 PAIN LEVEL. NO SIGNS OF DISTRESS NOTED. PT ENCOURAGED TO CALL FOR HELP WHEN GETTING IN AND OUT OF BED AND NEEDED. CALL LIGHT WITH IN REACH. WILL CONTINUE TO MONITOR
--- NOTE | 2019-09-28 00:05 | NUR ---
PRN PAIN MEDICATION GIVEN FOR 5/10 PAIN LEVEL CALL LIGHT WITH IN REACH. PT ENCOURAGED TO CALL FOR HELP WHEN GETTING IN AND OUT OF BED. WILL CONTINUE TO MONITOR
--- NOTE | 2019-09-28 01:42 | NUR ---
BED LINEN CHANGED. PT COMPLAINED OF NIGHT SWEATS. NO SIGNS OF DISTRESS NOTED. CALL LIGHT WITH IN REACH. WILL CONTINUE TO MONITOR
--- NOTE | 2019-09-28 03:52 | NUR ---
PRN PAIN MEDICATION GIVEN FOR 5/10 PAIN LEVEL. CALL LIGHT WITH IN REACH. WILL CONTINUE TO MONITOR.
--- NOTE | 2019-09-28 06:10 | NUR ---
PRN PAIN MEDICATION GIVEN FOR 6/10 PAIN LEVEL. CALL LIGHT WITH N REACH. PT ENCOURAGED TO CALL FOR HELP WHEN GETTING IN AND OUT OF BED. PT ASKED FOR SHIRT BECAUSE OF NIGHT SWEATS. WILL CONTINUE TO MONITOR
--- NOTE | 2019-09-28 06:23 | NUR ---
I have reviewed this patient and I concur with the Shift Assessment completed by the Licensed Practical Nurse today this shift.
--- NOTE | 2019-09-28 08:00 | NUR ---
PT RESTING IN BED WITH EYES OPEN CALL LIGHT IN REACH WILL MONITER
[2019-09-28 08:18] VITALS: BP 98/63
--- NOTE | 2019-09-28 11:00 | NUR ---
I have reviewed this patient and I concur with the Shift Assessment completed by the Licensed Practical Nurse today this shift.
--- NOTE | 2019-09-28 18:00 | NUR ---
PT EATING SUPPER CALL LIGHT IN REACH WILL MONITER
--- NOTE | 2019-09-28 18:28 | NUR ---
PT RESTING IN BED WITH EYES OPEN CALL LIGHT IN REACH WILL MONITER
--- NOTE | 2019-09-28 19:25 | NUR ---
GREETED PATIENT AND INTRODUCED MYSELF HER NURSE. PT RELAXING QUIETLY WATCHING TV. ADMINISTERED PRN DILAUDID FOR PAIN 7/10 IN RIGHT HIP. RESPIRATIONS EVEN. NO S/S OF DISTRESS. PT. DENIES ANY FURTHER NEEDS AT THIS TIME. CALL LIGHT IN REACH.
--- NOTE | 2019-09-29 01:05 | NUR ---
PT RESTING QUIETLY WITH EYES CLOSED. RESPIRATIONS EVEN. NO S/S OF DISTRESS. CALL LIGHT IN REACH.
[2019-09-29 06:12] LABS: BASOPHILS 0.5 % (0-2); EOSINOPHILS 3.5 % (0-7); HEMATOCRIT 30.5 % (36.0-48.0); HEMOGLOBIN 9.5 g/dL (12-16); IMMATURE GRANULOCYTES 0.5 % (0-5); LYMPHOCYTES 24.5 % (15-50); MCH 28.9 pg (26.0-34.0); MCHC 31.1 g/dL (31.0-37.0); MCV 92.7 fL (80.0-100.0); MEAN PLATELET VOLUME 10.3 fL (7.4-10.4); MONOCYTES 8.5 % (2-11); NEUTROPHILS 62.5 % (40-80); PLATELET COUNT 265 10x3/uL (130-400); RBC 3.29 10x6/uL (4.00-5.40); RDW 15.5 % (11.5-14.5)
[2019-09-29 06:30] LABS: CALC OSMOLALITY 280 mosm/kg (275-300); CALCIUM 8.8 mg/dL (8.5-10.1); CARBON DIOXIDE 29.5 mmol/L (21.0-32.0); CHLORIDE - SERUM 104 mmol/L (98-107); CREATININE - SERUM 0.8 mg/dL (0.6-1.3); GLUCOSE 100 mg/dL (74-106); POTASSIUM - SERUM 4.3 mmol/L (3.5-5.1); SODIUM 139 mmol/L (136-145); UREA NITROGEN 22 mg/dL (7-18); eGFR NON AFRICAN AMERICAN 76 mL/min (90-120)
[2019-09-29 08:00] VITALS: BP 87/50
[2019-09-29] MEDS ORDERED: XANAX0.5 MG PO (09:07)
[2019-09-29] MEDS ORDERED: DILAUDID2 MG PO (09:07)
--- NOTE | 2019-09-29 14:12 | RHP ---
PATIENT: GLORIA TORRES MEDICAL RECORD: [id number] ACCOUNT: [id number] LOCATION:[facility]1115 : 51 ADMISSION DATE: 09/19/19 REHABILITATION HISTORY AND PHYSICAL EXAMINATION POST ADMISSION PHYSICIAN EXAMINATION ADMITTING DIAGNOSES: Hip fracture and compression fracture of L2 and T12. HISTORY OF PRESENT ILLNESS: The patient is a 64-year-old female patient with history of hypertension, hyperlipidemia, coronary artery disease, COPD, CABG, presented to ED with complaints of back pain. Her symptoms began after a fall. She has been receiving physical therapy and progressing well. She is being monitored closely due to having acute pain and a recent fall and gait instability. She is on electrolyte protocol. She is monitoring her lab values, has weakness, balance deficits, decreased activity tolerance, decreased range of motion, gait disturbance limited safety awareness. She is at risk for falls after a recent fall. She needs cues to use equipment. She is on low endurance, unsteady gait and balance, fatigues easily, inability to care for herself and self-care deficits. These are all barriers to her discharge home. She lives at home with her daughter and was completely independent with ADLs using a rolling walker prior to this. Currently set up for mod assist for ADLs, mod assist for mobility. She and her family would like for her to return home at her prior level of functioning or better if possible. COMORBIDITIES: Include compression fracture, coronary artery disease, coronary artery bypass grafting, gait instability and a GI bleed. PAST MEDICAL HISTORY: Significant for dementia. She has got a history of arthritis, chronic back pain, history of stents and angioplasty in the past, chronic UTIs., rectal cancer. PAST SURGICAL HISTORY: Includes coronary artery bypass grafting and pacemaker placement. ALLERGIES: ACCUPRIL AND DIOVAN. CURRENT MEDICATIONS: Include lisinopril 20 mg daily, she is on vitamin D 2000 units daily, citalopram 40 mg daily, trazodone 150 mg at bedtime, lactulose 15 cc q.i.d., Omnicef 300 mg b.i.d., BuSpar 30 mg b.i.d., Eliquis 2.5 mg b.i.d., Vistaril 50 mg every 6 hours p.r.n. and Dilaudid 4 mg every 6 hours as needed for severe pain. HABITS: No alcohol or tobacco use. FAMILY HISTORY: Noncontributory. SOCIAL HISTORY: The patient hopes to return back home and get back to her prior level of functioning. REVIEW OF SYSTEMS: GENERAL: Does complain of weakness and fatigue. HEENT: Denies cold, cough, or congestion. CARDIOVASCULAR: Denies any chest pain. PHYSICAL EXAMINATION: HISTORY AND PHYSICAL [id number] GLORIA TORRES VITAL SIGNS: Stable, afebrile. GENERAL: An elderly female, in no acute distress upon exam. HEENT: Normocephalic and atraumatic. Mucosa moist. NECK: Supple. No lymphadenopathy. LUNGS: Clear in upper wals[place]. HEART: Regular rate and rhythm. She does have a holosystolic murmur. ABDOMEN: Soft, benign, and nondistended. Positive bowel sounds times 4. EXTREMITIES: No clubbing, cyanosis or edema. NEUROLOGIC: She is slow to mentate. LABORATORY DATA: Her white count is 4.4, H&H of 8 and 25, platelet count is noted to be 206. Her sodium is 138, potassium 3.9, BUN and creatinine of 12 and 0.8. Blood sugar is noted to be 106. ASSESSMENT: A 64-year-old female patient admitted to rehab with a working diagnosis of compression fractures and also periprosthetic hip fracture. The patient has potential to make improvement. We instituted the following multidisciplinary therapies including, but not limited to physical, occupational, respiratory, speech, nutritional services, prosthetics and orthotics. Given her complex medical conditions and risks for more complications, rehabilitation services cannot be provided at a low level of care such as alf facility. PLAN: 1. [facility] to include the following disciplines: A. Physical therapy to improve gait, all transfer skills and bed mobility to a modified independent level. B. Occupational therapy to improve activities of daily living. C. Case management to assist with discharge planning and placement options. D. Nutrition to assist with nutritional needs. E. Rehabilitation nursing to assist in monitoring the patient's underlying medical conditions and to assist with any type of bowel or bladder management. 2. The patient's current medication and medical care will be continued. 3. The patient will be placed on standard fall precautions. 4. The patient's estimated length of stay is approximately 7-10 days. 5. We will discuss this patient during care team staff meeting this week. TRANSINT:[id number] Voice Confirmation ID: [id number] DOCUMENT ID: [id number] EVER notes whether there has been none or any medical/functional change since admission: - No change since prescreen. EVER attests patient continues to be appropriate for IRF: - Continues to be appropriate. HISTORY AND PHYSICAL [id number] GLORIA TORRES,CHRISTOPHER POST MD at 1412 CC: [id number] DICTATION DATE: 09/20/19843 SHRIMP PACKER: 09/20/19 0931 ADM IN [facility] [address] [id number]
--- NOTE | 2019-09-29 19:57 | NUR ---
PATIENT RECEIVED SITTING UP IN BED. ASSESSMENT & VITAL SIGNS DONE. BED LOW. CALL LIGHT WITHIN REACH. WILL CONTINUE TO MONITOR.
[2019-09-29 20:46] VITALS: BP 101/60
--- NOTE | 2019-09-30 03:44 | NUR ---
PATIENT EYES CLOSED. RESPIRATIONS 18 & EVEN. BED LOW. CALL LIGHT WITHIN REACH. WILL CONTINUE TO MONITOR.
--- NOTE | 2019-09-30 04:22 | NUR ---
I have reviewed this patient and I concur with the Shift Assessment completed by the Licensed Practical Nurse today this shift.
[2019-09-30 08:50] VITALS: BP 109/63
[2019-09-30 11:10] VITALS: BP 109/63
[2019-09-30 19:42] VITALS: BP 98/58
--- NOTE | 2019-09-30 19:42 | NUR ---
PATIENT RECEIVED SITTING UP IN BED WATCHING TV. ASSESSMENT & VITAL SIGNS DONE. C/O PAIN VISTIRIL GIVEN. BED LOW. CALL LIGHT WITHIN REACH. WILL CONTINUE TO MONITOR.
--- NOTE | 2019-09-30 22:47 | NUR ---
I have reviewed this patient and I concur with the Shift Assessment completed by the Licensed Practical Nurse today this shift.
--- NOTE | 2019-10-01 02:44 | NUR ---
PATIENT EYES CLOSED. RESPIRATIONS 18 & EVEN. BE LOW. CALL LIGHT WITHIN REACH. WILL CONTINUE TO MONITOR.
[2019-10-01 08:00] VITALS: BP 84/63
--- NOTE | 2019-10-01 10:54 | NUR ---
ROLLING AROUND UNIT IN . DENIES NEEDS OR C/O. SHE IS ABLE TO TRANSFER HERSELF TO AND FROM .
--- NOTE | 2019-10-01 12:17 | NUR ---
SITTING IN WC IN ROOM EATING LUNCH AND WATCHING TV. DENIES NEEDS. CALL LIGHT IN REACH
--- NOTE | 2019-10-01 17:49 | NUR ---
SITTING UP IN BED WATCHING TV AND RESTING QUIETLY. TRANSFERS WELL BY HERSELF. DENIES NEEDS OR C/O. ASKS FOR PAIN MEDS ON REGULAR BASIS WELL VISTERIL.
--- NOTE | 2019-10-01 19:10 | NUR ---
PT IN BED WATCHING TV, BED WAIVER MOVES ABOUT THE ROOM, TOILETS SELF, FLUIDS/CALL LIGHT WITHIN REACH
--- NOTE | 2019-10-01 22:30 | NUR ---
PT REQUESTED PAIN MEDICATION, RECIVED, FLUIDS/CALL LIGHT WITHIN REACH
--- NOTE | 2019-10-01 22:30 | NUR ---
PT REQUESTS ICE CREAM AND SODA, RECIEVED, PT HAPPY WITH FLUIDS/CALL LIGHT WITHIN REACH
[2019-10-02 01:10] VITALS: BP 100/60
--- NOTE | 2019-10-02 05:47 | NUR ---
PT C/O RT HIP PAIN WATCHING THE Q-6HR CLOCK FOR MEDICATION CHANGED SHIRT AND BED X3 FOR SWEATING, FLUIDS/CALL LIGHT WITHIN REACH
--- NOTE | 2019-10-02 07:54 | NUR ---
WORKING WITH THERAPY
[2019-10-02 08:10] VITALS: BP 110/63
[2019-10-02 08:18] LABS: BASOPHILS 0.5 % (0-2); EOSINOPHILS 2.8 % (0-7); HEMATOCRIT 33.1 % (36.0-48.0); HEMOGLOBIN 10.1 g/dL (12-16); IMMATURE GRANULOCYTES 0.5 % (0-5); LYMPHOCYTES 25.9 % (15-50); MCH 28.5 pg (26.0-34.0); MCHC 30.5 g/dL (31.0-37.0); MCV 93.5 fL (80.0-100.0); MEAN PLATELET VOLUME 10.7 fL (7.4-10.4); NEUTROPHILS 59.3 % (40-80); PLATELET COUNT 285 10x3/uL (130-400); RBC 3.54 10x6/uL (4.00-5.40); RDW 15.5 % (11.5-14.5); WBC 4.4 10x3/uL (4.8-10.8)
[2019-10-02 08:34] LABS: ANION GAP 9.8 mmol/L (8-16); CALCIUM 8.7 mg/dL (8.5-10.1); CARBON DIOXIDE 29.3 mmol/L (21.0-32.0); CREATININE - SERUM 0.9 mg/dL (0.6-1.3); POTASSIUM - SERUM 4.1 mmol/L (3.5-5.1)
--- NOTE | 2019-10-02 14:19 | NUR ---
LAYING DOWN IN BED WATCHING TV. DENIES NEEDS OR C/O. CALL LIGHT IN REACH
--- NOTE | 2019-10-02 19:52 | NUR ---
PT IS RESTING IN BED TALKING ON HER CELL PHONE. ALERT AND ORIENTED X 3. DENIES ACUTE PAIN OR DISCOMFORT AT THIS TIME. NO NEEDS VOICED. SR'S ARE UP X 2 IN BED. CALL LIGHT AND BEDSIDE TABLE ARE WITHIN EASY REACH.
[2019-10-02 20:11] VITALS: BP 109/61
--- NOTE | 2019-10-02 22:05 | NUR ---
PT RESTING IN BED WATCHING TV. NO NEEDS VOICED.
--- NOTE | 2019-10-03 00:08 | NUR ---
I have reviewed this patient and I concur with the Shift Assessment completed by the Licensed Practical Nurse today this shift.
--- NOTE | 2019-10-03 05:41 | NUR ---
PT RESTING IN BED WITH EYES CLOSED. NO ACUTE DISTRESS NOTED.
[2019-10-03 08:57] VITALS: BP 121/72
--- NOTE | 2019-10-03 09:25 | NUR ---
PATIENT DISCHARGING HOME TODAY. [facility] WILL RESUME THERAPY AT HOME.NO NEW DME NEEDED AT THIS TIME. DR. ESTRADA 10/11/19 @ 12:00, DR. JEAN 10/18/19 @ 10:20. PATIENT CHOICE FORM FOR HOME HEALTH AND [facility] FORM SIGNED,EXPLIANED, ONE GIVEN TO PATIENT AND ONE FILED IN CHART. NO COMPARE DATA REVIEWED PATIENT IS A CLIENT OF [facility]. DISCHARGE INSTRUCTIONS FAXED TO PCP, HOME HEALTH AND TO PATIENT INSURANCE (ASHLI VARGAS, , AUTH. # [id number]) AND REVIEWED WITH PATIENT PER PRIMARY NURSE.
[2019-10-03 11:05] VITALS: BP 121/72
--- NOTE | 2019-10-03 12:15 | NUR ---
REVIEWED MEDS, FOLLOW UP APPOINTMENTS GIVEN, MEDS CALLED INTO PHARMACY
--- NOTE | 2019-10-03 14:46 | NUR ---
DISCHARGED HOME RX GIVEN, APPTS. GIVEN, MEDS CALLED INTO PHARMACY
== END 2019-10-03 14:49 | disposition home health service (06) | DRG 536 ==
LOC: D.REHAB 12:13
PROVIDERS: ADMIT Emergency Medicine; ATTEND Emergency Medicine
DX: S72.001A Fracture of unspecified part of neck of right femur, initial encounter for closed fracture (principal); M48.54XA Collapsed vertebra, not elsewhere classified, thoracic region, initial encounter for fracture; K92.2 Gastrointestinal hemorrhage, unspecified; F17.203 Nicotine dependence unspecified, with withdrawal; W19.XXXA Unspecified fall, initial encounter; R53.1 Weakness; I25.10 Atherosclerotic heart disease of native coronary artery without angina pectoris; G89.29 Other chronic pain; R55 Syncope and collapse; F41.8 Other specified anxiety disorders; E55.9 Vitamin D deficiency, unspecified; F10.10 Alcohol abuse, uncomplicated; J44.9 Chronic obstructive pulmonary disease, unspecified; I10 Essential (primary) hypertension; F22 Delusional disorders; Z95.0 Presence of cardiac pacemaker; Z85.048 Personal history of other malignant neoplasm of rectum, rectosigmoid junction, and anus

== ENCOUNTER 2019-12-27 13:43 | Emergency (ER) | payer MEDICARE ==
[~2019-12-27] VITALS: Ht 175.3 cm; Wt 63.6 kg
[~2019-12-27 13:43] MED LIST changes: +DILAUDID2 MG PO; +XANAX0.5 MG PO
[2019-12-27 14:14] VITALS: Ht 175.3 cm; Wt 63.6 kg
[2019-12-27] MEDS ORDERED: PREDNISONE20 MG PO (16:12)
[2019-12-27] MEDS ORDERED: DICLOFENAC SODI50 MG PO (16:12)
[2019-12-27 16:32] VITALS: BP 102/50
== END 2019-12-27 16:33 | disposition home or self-care (01) ==
LOC: D.ER 13:43
DX: M25.551 Pain in right hip (principal); M54.9 Dorsalgia, unspecified; G89.29 Other chronic pain; I10 Essential (primary) hypertension; J44.9 Chronic obstructive pulmonary disease, unspecified; K21.9 Gastro-esophageal reflux disease without esophagitis; Z72.0 Tobacco use

== ENCOUNTER 2020-03-23 04:42 | Inpatient (IN) | payer MEDICARE ==
[~2020-03-23 04:42] MED LIST changes: +PREDNISONE20 MG PO
--- NOTE | 2020-03-23 05:44 | NUR ---
PATIENT IN ER WITH FEELINGS OF DEPRESSION HOWEVER SHE DENIES SUICIDIAL IDEATION AND SAYS THAT SHE HAS NEVER WANTED TO HARM HERSELF, SHE STATES THAT SHE IS JUST LONELY AT THIS TIME. SHE ADMITS TO DOING "ICE" YESTERDAY. SHE CAN NOT BE STILL, SHE SEEMS TO BE DRIVEN BY A MOTOR. 1-800 NUMBER GIVEN TO HER FOR FUTURE REFERENCE.
[2020-03-23 05:45] LABS: BASOPHILS 0.2 % (0-2); HEMATOCRIT 35.2 % (36.0-48.0); HEMOGLOBIN 11.9 g/dL (12-16); IMMATURE GRANULOCYTES 0.2 % (0-5); LYMPHOCYTES 14.3 % (15-50); MCH 29.8 pg (26.0-34.0); MCHC 33.8 g/dL (31.0-37.0); MCV 88.2 fL (80.0-100.0); MEAN PLATELET VOLUME 10.3 fL (7.4-10.4); MONOCYTES 12.3 % (2-11); PLATELET COUNT 313 10x3/uL (130-400); RBC 3.99 10x6/uL (4.00-5.40); RDW 14.4 % (11.5-14.5)
[2020-03-23 05:48] LABS: BILIRUBIN 4+ (NEGATIVE); KETONE NEGATIVE (NEGATIVE); NITRITE NEGATIVE (NEGATIVE); UROBILINOGEN NORMAL mg/dL (< 2); WHITE CELLS - URINE 0-5 HPF (0-4)
[2020-03-23 05:57] LABS: CALC OSMOLALITY 280 mosm/kg (275-300); CALCIUM 9.1 mg/dL (8.5-10.1); CARBON DIOXIDE 24.7 mmol/L (21.0-32.0); CHLORIDE - SERUM 104 mmol/L (98-107); CREATININE - SERUM 1.2 mg/dL (0.6-1.3); GLUCOSE 93 mg/dL (74-106); POTASSIUM - SERUM 3.6 mmol/L (3.5-5.1); SODIUM 140 mmol/L (136-145); UREA NITROGEN 17 mg/dL (7-18); eGFR NON AFRICAN AMERICAN 48 mL/min (90-120)
[2020-03-23 05:58] LABS: UDS - AMPHET POSITIVE QUAL (NEGATIVE); UDS - BARB NEGATIVE QUAL (NEGATIVE); UDS - BENZO NEGATIVE QUAL (NEGATIVE); UDS - COCAINE NEGATIVE QUAL (NEGATIVE); UDS - OPIATE NEGATIVE QUAL (NEGATIVE); UDS - PCP NEGATIVE QUAL (NEGATIVE); UDS - THC POSITIVE QUAL (NEGATIVE)
--- NOTE | 2020-03-23 06:00 | NUR ---
FIRE FIGHTER CRASH FIRE AND RESCUE AT BEDSIDE FOR ASSESSMENT.
[2020-03-23 06:13] LABS: ALBUMIN 3.8 g/dL (3.4-5.0); ALKALINE PHOSPHATASE 93 U/L (30-120); ALT (SGPT) 38 U/L (10-68); AMYLASE - SERUM 11 U/L (25-115); BILIRUBIN - TOTAL 0.86 mg/dL (0.2-1.3); PROTEIN - SERUM 6.9 g/dL (6.4-8.2); TROPONIN-I < 0.017 ng/mL (0.000-0.060)
[2020-03-23 06:20] LABS: LIPASE 38 U/L (73-393)
--- NOTE | 2020-03-23 06:20 | NUR ---
PT UP TO BATHROOM AT THIS TIME.
--- NOTE | 2020-03-23 06:46 | NUR ---
PT TAKEN TO CT
--- NOTE | 2020-03-23 07:56 | NUR ---
SR CARE NOTIFIED OF PT.
--- NOTE | 2020-03-23 09:50 | NUR ---
PA FOR SR CARE HERE TO TALK TO PT .
--- NOTE | 2020-03-23 10:41 | NUR ---
PT VERY RESTLESS, EXPLAIN WHEN RESULTS OF COVID TEST ARE BACK SHE WILL BE GOING DOWN STAIRS. SHE VOICED UNDERSTANDING.
[2020-03-23 10:43] VITALS: BP 124/86
--- NOTE | 2020-03-23 13:00 | NUR ---
PT ADMITTED FROM [facility] ER FOR PSYCHOSIS AND DEPRESSION. PT ADMITTED TO USING ICE AND THC YESTERDAY. PT DENIES SI AT THIS TIME. PT REPORTS " I AM REALLY DEPRESSED, CRYING NOTED." PT REQUESTING TO LEAVE AMA. DR. EARLY CALLED. NEW ORDER NOTED FOR 72 HOUR HOLD. PT IS HAVING INVOLUNTARY MOVEMENT AT THIS TIME. PT UNABLE TO SIT STILL, CONSTANTLY MOVING, HYPERVERBAL, AND EXCESSIVE CRYING NOTED. CODE # 1377. PT REPORTS SHE IS A DNR. PRN HALDOL 2MG IM AND ATIVAN 0.5MG IM GIVEN PER DR. EARLY FOR ANXIETY.
--- NOTE | 2020-03-23 13:10 | NUR ---
PT REPORTS " I PICK AT MY ARMS AND LEGS CONSTANTLY TO GET THE BUGS OFF ME." NURSE EXPLAINED TO PT NO BUGS NOTED AT THIS TIME. PT REPORTS " I HAVE PARASITES."
--- NOTE | 2020-03-23 14:30 | NUR ---
POOR RESPONSE TO ATIVAN AND HALDOL.CONTINUES TO HAVE INVOLUNTARY MOVEMENT.IS IN RECLINER AND YELLS OUT AT TIMES BECAUSE SHE HITS HERSELF AGAINST THE CHAIR ARM.BLANKET PLACED OVER CHAIR ARMS FOR PADDING.IS CONSTANTLY OBSERVED FOR SAFETY.
[2020-03-23 15:42] LABS: BASOPHILS 0.4 % (0-2); EOSINOPHILS 3.5 % (0-7); HEMATOCRIT 32.5 % (36.0-48.0); IMMATURE GRANULOCYTES 0.1 % (0-5); LYMPHOCYTES 16.8 % (15-50); MCH 30.1 pg (26.0-34.0); MCHC 33.8 g/dL (31.0-37.0); MCV 88.8 fL (80.0-100.0); MONOCYTES 14.5 % (2-11); NEUTROPHILS 64.7 % (40-80); PLATELET COUNT 254 10x3/uL (130-400); RBC 3.66 10x6/uL (4.00-5.40); RDW 14.4 % (11.5-14.5); WBC 7.8 10x3/uL (4.8-10.8)
--- NOTE | 2020-03-23 16:16 | NUR ---
RAUL AND MIKI REPEATED PER ORDERS DUE TO CONTINUED THRASHING ABOUT IN CHAIR AND YELLING OUT.
[2020-03-23 16:29] LABS: ALBUMIN 3.3 g/dL (3.4-5.0); ANION GAP 11.1 mmol/L (8-16); BILIRUBIN - TOTAL 0.55 mg/dL (0.2-1.3); CALCIUM 8.6 mg/dL (8.5-10.1); CARBON DIOXIDE 25.2 mmol/L (21.0-32.0); CREATININE - SERUM 1.1 mg/dL (0.6-1.3); LDL-HDL RATIO 0.9 ratio (1.5-3.5); POTASSIUM - SERUM 3.3 mmol/L (3.5-5.1); PROTEIN - SERUM 6.3 g/dL (6.4-8.2)
[2020-03-23 17:03] VITALS: BP 110/65; BMI 17.2
--- NOTE | 2020-03-23 20:49 | NUR ---
RECEIVED PATIENT IN DAYROOM IN RECLINER, SHE IS SLEEPING BUT WAKES UP SOMETIMES AND MOVES VERY FAST, ALMOST JERKING MOTIONS WITH HER ARMS AND LEGS THEN IS STILL AGAIN. SHE DID EAT A SNACK AND HAD FLUIDS TO DRINK. SHE CAN ANSER SIMPLE QUESTIONS AT THIS TIME. WILL BE ABLE TO ASSESS HER MORE THOROUGHLY WHEN SHE IS MORE ALERT. WILL FOLLOW POC
[2020-03-24 08:30] VITALS: BP 135/85
--- NOTE | 2020-03-24 12:00 | NUR ---
RECEIVED IN HALLWAY OUTSIDE OF NURSES STATION. CALM AND COOPERATIVE WITH CARE AND ASSESSMENT. SLEEPS ALOT. WAKES UP TO EAT AND USE RESTROOM. ISOLATES SELF. REDIRECT AND REORIENT NEEDED. EATING AT THIS TIME. CONTINUE PLAN OF CARE.
[2020-03-24 21:50] VITALS: BP 126/92
--- NOTE | 2020-03-24 23:38 | NUR ---
RECEIVED IN DAYROOM. LAYING ON THE SOFA. KEEPING TO HERSELF. WITH ANSWER QUESTIONS WHEN ASK BUT NOT SOCIAL. CALM AND COOPERATIVE WITH CARE AND ASSESSMENT. ENCOURAGE TO EXPRESS NEEEDS. RESTING IN BED WITH EYES CLOSED AT THIS TIME. CONTINUE PLAN OF CARE.
[2020-03-25 08:45] VITALS: Wt 55.1 kg
[2020-03-25 10:40] VITALS: BP 121/91
--- NOTE | 2020-03-25 12:30 | PSY ---
PATIENT NAME:INEZ TORRES MEDICAL RECORD: [id number] : 51 LOCATION:[facility] ADMISSION DATE: 03/23/20 ACCOUNT: [id number] PSYCHIATRIC EVALUATION DATE OF EVALUATION: 03/24/20 IDENTIFYING DATA: Ms. Inez Torres is a 64-year-old female who is very thin and appears much older than her stated age. She was admitted to the inpatient unit for comprehensive evaluation. CHIEF COMPLAINT: The patient reports that she wants to be evaluated in suicidal ideation. HISTORY OF PRESENT ILLNESS: The patient was brought into the ED via EMS after she had used ice earlier. The patient was complaining of diarrhea, depression, and possible suicidal ideation. The patient had been taken lactulose to get her bowels moving and had had profuse watery diarrhea. The patient also reports that she has used meth approximately 2 times a month. The patient reports that she has not been able to eat because there are bugs in her fruit at her house and those bugs were all over; however, no one believed her, but there are bugs there. The patient reports that she does have some thoughts of that is not worth living. The patient is not able to really articulate any support nor is she able to verbalize a plan. The patient reports that she had become depressed yesterday. PAST MEDICAL HISTORY: Include cirrhosis; hepatitis C, which is resolved; hypertension; COPD; depression; anxiety; paranoia. She also has arthritis, chronic back pain, joint replacement, osteoporosis, total hip replacement. Has had falls and fractured her femur and right hip. She has acid reflux. PAST PSYCHIATRIC HISTORY: The patient reports that she has had substance use, has been in recovery before. The patient also reports anxiety, depression, and paranoia. FAMILY HISTORY: The patient reports that her mother does have some depression. She believes trauma. The patient is guarded, but responds to yes she has had a history of some trauma. ALLERGIES: INCLUDE QUINAPRIL AND VALSARTAN. MEDICATIONS: The patient's current medications included trazodone and Celexa and BuSpar, which she states she has been on for a long time and they did not work. The patient is on lisinopril. SOCIAL HISTORY: The patient states that she is a . She denies having any children. She states that she has used meth historically and probably about 2 times a month. She worked as a certified nursing assistant in the homes. She has not been able to work for the last few years. She does smoke cigarettes, does not want to quit. MENTAL STATUS EXAM: The patient is alert and oriented, disheveled appearance. Her speech is soft, low tone, low volume. Her associations are loose. Her eye contact is fair. Her behavior is guarded. Her thought process is circumstantial. Her thought content has some passive suicidal ideation and some auditory hallucinations. Her mood is depressed and anxious, and easily agitated. Her affect is flat blunt narrow in range. She does have some abnormal movements. Her anxiety is moderate. Her memory is poor for both recent and remote events. Abnormal movements may be related to her history of methamphetamines. Her judgment is poor. Her impulsivity is high. Her reasoning is poor. Her strengths are her ability to participate in treatment. Her weaknesses is her psychosocial stressors. ASSESSMENT: AXIS I: Major depression with psychosis, recurrent and then generalized anxiety. AXIS II: Deferred. AXIS III: Going to be cirrhosis, hypertension, COPD and arthritis, chronic back pain. AXIS IV: Moderate. AXIS V: Global assessment of functioning is 30. PLAN: At this time, the patient is to be admitted to the hospital inpatient psychiatric unit secondary to passive suicidal ideation and psychosis. We will complete a comprehensive psychiatric evaluation for mood, thought, and cognitive. We will make medication adjustments to stabilize her mood and thoughts and cognition. TRANSINT:[id number] Voice Confirmation ID: [id number] DOCUMENT ID: [id number] Dictated By: SIMI MCLAIN I have interviewed/examined the above patient and agree with these documented findings. ATTILA EARLY MD at 1230 CC: [id number] DICTATION DATE: 03/24/20 1143 RECEIVING DISTRIBUTION STATION OPERATOR: 03/24/20 1637 [facility] IN [facility] [address] [place] [address]
[2020-03-25 12:53] LABS: CALC OSMOLALITY 275 mosm/kg (275-300); CALCIUM 8.5 mg/dL (8.5-10.1); CARBON DIOXIDE 27.6 mmol/L (21.0-32.0); CHLORIDE - SERUM 105 mmol/L (98-107); GLUCOSE 125 mg/dL (74-106); SODIUM 137 mmol/L (136-145); UREA NITROGEN 14 mg/dL (7-18)
[2020-03-25 12:56] LABS: CREATININE - SERUM 0.8 mg/dL (0.6-1.3); POTASSIUM - SERUM 3.9 mmol/L (3.5-5.1); eGFR NON AFRICAN AMERICAN 76 mL/min (90-120)
--- NOTE | 2020-03-25 13:41 | NUR ---
PT IS RESTING WITH EYES CLOSED IN RECLIMING CHAIR AT THIS TIME. RESPONDS TO VERBAL STIMULI. ASSESSMENT COMPLETED. PRESCRIBED MEDS PROVIDED ORDERED. MED COMPLIANT. PT SLEEPS MOST OF THE SHIFT. PT DOES WAKE UP FOR MEALS AND RESTROOM BREAKS. PT DOES ISOLATES AT THSI TIME. WILL CPOC.
[2020-03-25] MEDS ORDERED: TRAZODONE HCL50 MG PO (15:26)
[2020-03-25] MEDS ORDERED: ZOLOFT50 MG PO (15:27)
--- NOTE | 2020-03-25 17:45 | NUR ---
PT DC HOME PER TAXI. NO S/SX OF DISTRESS NOTED. ALL PAPERWORK FAXED AND SENT WITH PT AT TIME OF DISCHARGE.
--- NOTE | 2020-03-26 11:31 | PN ---
PATIENT:GLORIA TORRES MEDICAL RECORD: [id number] LOCATION:[facility] ADMISSION DATE: 03/23/20 PROGRESS NOTE DATE OF SERVICE: 03/25/2020 SUBJECTIVE: The patient's case was discussed with staff. She has no new complaint. OBJECTIVE: The patient is fully oriented. She denies thoughts of harming herself or others and has no psychotic symptoms. ASSESSMENT: Major depression. PLAN: The patient is requesting discharge and is not willing to stay and allow me to further treat her pharmacologically. She feels she would be better served in a different setting and wants to leave. I am going to allow her to do so. She does not currently meet criteria for an involuntary commitment. TRANSINT:[id number] Voice Confirmation ID: [id number] DOCUMENT ID: [id number] ATTILA EARLY MD at 1131 CC: [id number] DICTATION DATE: 03/25/20 1525 WELDER FITTER GAS: 03/26/20 0024 DIS IN 03/25/20 [id number] [place] [address]
--- NOTE | 2020-03-28 13:11 | DS ---
PATIENT:GLORIA TORRES :51 MEDICAL RECORD: [id number] DISCHARGE SUMMARY ADMISSION DATE: 03/23/20 DISCHARGE DATE: 03/25/20 IDENTIFYING DATA: The patient is 64 years old and she was admitted to the hospital on a voluntary basis. CHIEF COMPLAINT: Suicidal thoughts. HISTORY OF PRESENT ILLNESS: The patient was brought to the Emergency Room after having used methamphetamine. She was actually complaining of some medical issues, primarily diarrhea, but also indicated that she was depressed. The reason she came to our attention is because she also said she was suicidal or had some vague suicidal thoughts. She had some very agitated behaviors, disorganized thoughts and it was clear that she was under the influence of a drug. She was subsequently referred to the behavioral unit and admitted. Shortly after that, she demanded to leave and I placed her on a 72-hour hold because of the suicidal ideations. I did examine her the next morning and the patient was no longer under the influence of drugs, had no thoughts of harming herself or others and was not at all interested in substance abuse treatment. She tells me that she has a long history of polysubstance abuse and in fact, that is how she contracted hepatitis C. She furthermore tells me that she has been quite depressed and would like treatment for that, but she is not suicidal. She did not want to stay and allow me to start her on medication, she wanted an outpatient referral and she was given that. DISCHARGE DIAGNOSES: AXIS I: 1. Major depression, moderate severity without psychotic features. 2. Methamphetamine use disorder. AXIS II: Deferred. AXIS III: Hepatitis, hypertension, chronic obstructive pulmonary disease, chronic back pain. AXIS IV: Moderate stressors. AXIS V: Global assessment of functioning is 45. PLAN: At the time of discharge, the patient was in good behavioral control and had no evidence of psychotic symptoms or direct dangerousness to herself or others. She is not wanting any substance abuse treatment that I can refer her to. She says that she has a sponsor and goes to a Narcotics Anonymous group on a daily basis. With the COVID infection they have been meeting on a [employer] group platform. She is not wanting to stay in the hospital and she was given referral to outpatient treatment. TRANSINT:[id number] Voice Confirmation ID: [id number] DOCUMENT ID: [id number] ATTILA EARLY MD at 1311 CC: [id number] DICTATION DATE: 03/27/20 1528 DAM ATTENDANT: 03/28/2020 DIS IN 03/25/20 [place] [id number] [facility], [facility]
== END 2020-03-25 18:15 | disposition home or self-care (01) | DRG 885 ==
LOC: D.ER 04:42 → D.PSYCH 10:18
PROVIDERS: Family Medicine; ADMIT Psychiatry & Neurology Psychiatry; ATTEND Psychiatry & Neurology Psychiatry
DX: F33.3 Major depressive disorder, recurrent, severe with psychotic symptoms (principal); Z68.1 Body mass index [BMI] 19.9 or less, adult; R45.851 Suicidal ideations; I10 Essential (primary) hypertension; K70.30 Alcoholic cirrhosis of liver without ascites; F15.10 Other stimulant abuse, uncomplicated; D64.9 Anemia, unspecified; M19.90 Unspecified osteoarthritis, unspecified site; R63.6 Underweight; E87.6 Hypokalemia; G47.00 Insomnia, unspecified

== ENCOUNTER 2020-08-19 12:55 | Inpatient (IN) | payer MEDICARE ==
[~2020-08-19 12:55] MED LIST changes: +BUPROPION HCL100 M1 PO; +LIORESAL 10 MG10 MG PO; +TRAZODONE HCL50 MG PO; +VOLTAREN25 MG PO; +ZOLOFT50 MG PO
[2020-08-19 13:36] LABS: BASOPHILS 0.3 % (0-2); EOSINOPHILS 0.7 % (0-7); HEMATOCRIT 44.2 % (36.0-48.0); HEMOGLOBIN 14.4 g/dL (12-16); IMMATURE GRANULOCYTES 0.2 % (0-5); LYMPHOCYTE ABS# 2.06 10x3/uL (1.18-3.74); LYMPHOCYTES 23.9 % (15-50); MCH 29.4 pg (26.0-34.0); MCHC 32.6 g/dL (31.0-37.0); MCV 90.4 fL (80.0-100.0); MEAN PLATELET VOLUME 9.6 fL (7.4-10.4); MONOCYTES 5.7 % (2-11); NEUTROPHIL ABS# 5.97 10x3/uL (1.56-6.13); NEUTROPHILS 69.2 % (40-80); RBC 4.89 10x6/uL (4.00-5.40); RDW 14.1 % (11.5-14.5); WBC 8.6 10x3/uL (4.8-10.8)
[2020-08-19 13:39] LABS: PLATELET COUNT 260 10x3/uL (130-400)
[2020-08-19 14:03] LABS: CALC OSMOLALITY 273 mosm/kg (275-300); CALCIUM 9.4 mg/dL (8.5-10.1); CARBON DIOXIDE 28.6 mmol/L (21.0-32.0); CHLORIDE - SERUM 101 mmol/L (98-107); CREATININE - SERUM 0.7 mg/dL (0.6-1.3); GLUCOSE 93 mg/dL (74-106); POTASSIUM - SERUM 3.7 mmol/L (3.5-5.1); SODIUM 138 mmol/L (136-145); UREA NITROGEN 8 mg/dL (7-18); eGFR NON AFRICAN AMERICAN 88 mL/min (90-120)
[2020-08-19 14:08] LABS: ALBUMIN 3.7 g/dL (3.4-5.0); ALKALINE PHOSPHATASE 84 U/L (30-120); ALT (SGPT) 21 U/L (10-68); BILIRUBIN - TOTAL 0.22 mg/dL (0.2-1.3); MAGNESIUM - SERUM 2.4 mg/dL (1.8-2.4); PROTEIN - SERUM 7.1 g/dL (6.4-8.2)
[2020-08-19 14:18] LABS: UDS - AMPHET NEGATIVE QUAL (NEGATIVE); UDS - BARB NEGATIVE QUAL (NEGATIVE); UDS - BENZO NEGATIVE QUAL (NEGATIVE); UDS - COCAINE NEGATIVE QUAL (NEGATIVE); UDS - OPIATE NEGATIVE QUAL (NEGATIVE); UDS - PCP NEGATIVE QUAL (NEGATIVE); UDS - THC NEGATIVE QUAL (NEGATIVE)
[2020-08-19 14:25] LABS: BACTERIA NONE SEEN HPF (NONE SEEN); BILIRUBIN NEGATIVE (NEGATIVE); KETONE NEGATIVE (NEGATIVE); NITRITE NEGATIVE (NEGATIVE); SQUAMOUS EPITHELIAL RARE HPF (0-4); UROBILINOGEN NORMAL mg/dL (< 2); WHITE CELLS - URINE NONE SEEN HPF (0-4)
--- NOTE | 2020-08-19 18:14 | NUR ---
NOTIFIED PSYCH EVAL FOR SUICIDAL IDEATION
[2020-08-19] MEDS ORDERED: ULTRAM50 MG PO (20:16)
[2020-08-19] MEDS ORDERED: TRAZODONE HCL150 MG PO (20:17)
[2020-08-19] MEDS ORDERED: BUSPIRONE HCL30 MG PO (20:18)
[2020-08-19] MEDS ORDERED: CELEXA40 MG PO (20:19)
--- NOTE | 2020-08-19 21:43 | NUR ---
NEW ADMIT FROM [facility] ED TO DR EARLY RELATED TO SUICIDAL IDEATIONS. TRANSFERED VIA WHEELCHAIR WITH [facility] STAFF AT HER SIDE. CALM AND COOPERATIVE UPON ARRIVAL. DENIES THOUGHTS OF SELF HARM AT THIS TIME. NURSE IN ROOM PERFORMING ADMIT ASSESSMENT WITH PT AT THIS TIME. CONTINUE TO MONITOR FOR SAFETY.
[2020-08-19 22:39] LABS: BILIRUBIN NEGATIVE (NEGATIVE); KETONE NEGATIVE (NEGATIVE); NITRITE NEGATIVE (NEGATIVE); UROBILINOGEN NORMAL mg/dL (< 2)
[2020-08-19 22:55] VITALS: BP 152/97
[2020-08-19 23:16] VITALS: BP 152/97; BMI 17.3
[2020-08-20 07:45] LABS: BASOPHILS 0.5 % (0-2); HEMATOCRIT 39.6 % (36.0-48.0); HEMOGLOBIN 13.4 g/dL (12-16); IMMATURE GRANULOCYTES 0.7 % (0-5); LYMPHOCYTE ABS# 1.51 10x3/uL (1.18-3.74); LYMPHOCYTES 25.3 % (15-50); MCH 30.5 pg (26.0-34.0); MCHC 33.8 g/dL (31.0-37.0); MCV 90.2 fL (80.0-100.0); MEAN PLATELET VOLUME 11.4 fL (7.4-10.4); MONOCYTES 8.1 % (2-11); NEUTROPHIL ABS# 3.84 10x3/uL (1.56-6.13); NEUTROPHILS 64.4 % (40-80); RBC 4.39 10x6/uL (4.00-5.40); RDW 14.2 % (11.5-14.5)
[2020-08-20 07:48] LABS: PLATELET COUNT 109 10x3/uL (130-400)
[2020-08-20 07:51] LABS: ALBUMIN 3.3 g/dL (3.4-5.0); ALKALINE PHOSPHATASE 71 U/L (30-120); ALT (SGPT) 18 U/L (10-68); BILIRUBIN - TOTAL 0.35 mg/dL (0.2-1.3); CALC OSMOLALITY 279 mosm/kg (275-300); CALCIUM 9.3 mg/dL (8.5-10.1); CHLORIDE - SERUM 105 mmol/L (98-107); CHOL - HDL RATIO 2.3 ratio (2.3-4.1); CHOLESTEROL, TOTAL 168 mg/dL (0-200); CREATININE - SERUM 0.7 mg/dL (0.6-1.3); GLUCOSE 91 mg/dL (74-106); HDL CHOLESTEROL 73 mg/dL (32-96); LDL CHOLESTEROL 85 mg/dL (0-100); LDL-HDL RATIO 1.2 ratio (1.5-3.5); POTASSIUM - SERUM 4.2 mmol/L (3.5-5.1); PROTEIN - SERUM 6.4 g/dL (6.4-8.2); SODIUM 141 mmol/L (136-145); THYROID STIMULATING HORMONE 2.15 uIU/mL (0.36-3.74); TRIGLYCERIDE 54 mg/dL (30-200); eGFR NON AFRICAN AMERICAN 88 mL/min (90-120)
[2020-08-20 07:54] LABS: UREA NITROGEN 11 mg/dL (7-18)
[2020-08-20 08:00] VITALS: BP 152/75
[2020-08-20 11:09] VITALS: Wt 56.1 kg
--- NOTE | 2020-08-20 17:38 | NUR ---
RECEIVED IN PATIENT ROOM. SITTING ON SIDE OF BED. CALM AND COOPERATIVE WITH CARE AND ASSESSMENT. ANXIOUS AND ASKING TO TALK TO THEIR PSYCHIATRIST. DENIES SUICIDAL IDEATION. REDIRECT AND REORIENT NEEDED. EATING DINNER AT THIS TIME. CONTINUE PLAN OF CARE.
[2020-08-20 20:00] VITALS: BP 155/95
--- NOTE | 2020-08-20 20:45 | NUR ---
RECEIVED IN BEDROOM. RESTING IN BED WITH EYES OPEN. CALM AND COOPERATIVE WITH CARE AND ASSESSMENT. NO STATEMENTS OF SELF HARM VOICED THIS EVENING. ENCOURAGE TO EXPRESS NEEDS. CONTINUES TO REST QUIETLY IN BED. CONTINUE PLAN OF CARE.
[2020-08-21 08:13] LABS: RAPID PLASMA REAGIN Non Reactive (Non Reactive)
--- NOTE | 2020-08-21 08:34 | PSY ---
PATIENT NAME:GLORIA TORRES MEDICAL RECORD: [id number] : 51 LOCATION:[facility] ADMISSION DATE: 08/19/20 ACCOUNT: [id number] PSYCHIATRIC EVALUATION DATE OF EVALUATION: 08/20/20 IDENTIFYING DATA: The patient is 65 years old and she is admitted to the hospital on a voluntary basis. CHIEF COMPLAINT: Suicidal thoughts. HISTORY OF PRESENT ILLNESS: The patient presented to the Emergency Room intoxicated. She said she was going to kill herself and her plan was to take all of her medications. She was here in June of this year with an identical presentation. She tells me on interview that after she left here, she did not drink for a couple of weeks and then started just having a couple of beers a day, but then it has sort of grown into something that is out of control. She tells me that she feels regret for having done this. She has been in many substance abuse programs through the course of her adult life and she knows that if she would not drink that she would be unlikely to kill herself. She does talk to me about her vegetative depressive symptoms and feels her medications are not working and wants me to make changes. She is not suicidal at this time. PAST MEDICAL HISTORY: Significant for hepatitis C, which has resolved. She also has alcoholic cirrhosis, hypertension, COPD and chronic back and joint pain from osteoarthritis. PAST PSYCHIATRIC HISTORY: Significant for longstanding problems with alcohol abuse and some very significant periods of sobriety through her adult life. In fact, one of those periods was for 12 years. She has been in multiple inpatient and outpatient programs. FAMILY HISTORY: Significant for alcoholism and depression. ALLERGIES: VISTARIL AND QUINAPRIL. MEDICATIONS: Include Lisinopril, Celexa, trazodone and Voltaren. SOCIAL HISTORY: The patient is . She did have 2 children, one is and the other is in jail. She is retired and did home health care. She does have a long history of alcohol abuse as mentioned above. MENTAL STATUS EXAMINATION: The patient is awake, alert and oriented fully. Her mood is depressed. Her affect is constricted. Thought processes are generally goal-directed. Her memory, concentration and abstraction abilities are mildly impaired and she currently denies that she would seek to harm herself or others as well as psychotic symptoms. ASSESSMENT: AXIS I: Major depression, moderate severity, recurrent without psychotic features, alcohol abuse. AXIS II: Cluster B personality traits. AXIS III: Alcoholic cirrhosis, hypertension, chronic obstructive pulmonary disease, osteoarthritis. AXIS IV: Moderate stressors. AXIS V: Global assessment of functioning is 40. PLAN: At this time, the patient is admitted to the hospital secondary to suicidal thoughts with an active plan. This is a recurrent theme. She will be monitored for alcohol withdrawal and will be treated with antidepressant medications. Her prognosis is guarded. TRANSINT:[id number] Voice Confirmation ID: [id number] DOCUMENT ID: [id number] ATTILA EARLY MD at 0834 CC: [id number] DICTATION DATE: 08/20/20 1605 BREAK OUT WORKER: 08/20/20 1623 ADM IN [facility] [address] [place] [address]
--- NOTE | 2020-08-21 10:01 | NUR ---
Nutrition Re-Assessment Diet: Regular PO intake: 100% x 3 meals yesterday Last BM: 08/21/20 Wt: 117# (08/20/20) Meds noted: thiamin Labs noted: alb 3.3(L) Estimated nutrition needs and nutrition diagnosis remain unchanged at this time. Meeting nutrition goals at this time. Recommendations/Interventions: -Recommend continue current diet. -RD will continue to monitor PO intake and wt trend. -RD will follow-up within 7 days.
--- NOTE | 2020-08-21 12:30 | NUR ---
RECEIVED IN PATIENT ROOM. SITTING IN CHAIR. CALM AND COOPERATIVE WITH CARE AND ASSESSMENT. DENIES SUICIDAL IDEATION. REDIRECT AND REORIENT NEEDED. EATING DINNER AT THIS TIME. CONTINUE PLAN OF CARE.
[2020-08-21 20:00] VITALS: BP 113/75
--- NOTE | 2020-08-21 20:58 | NUR ---
PT IS ALERT AND ORIENTED X4. SHE IS CALM AND COOPERATIVE WITH STAFF. SHE IS RECEIVED IN HER ROOM ON ISOLATION PENDING HER COVID RESULTS. CURRENTLY READING IN BED. DENIES SI. COMPLIANT WITH ALL MEDICATIONS. EASY TO REDIRECT. MONITOR FOR SAFETY.
[2020-08-22 09:37] VITALS: BP 150/89
--- NOTE | 2020-08-22 11:59 | PN ---
PATIENT:GLORIA TORRES MEDICAL RECORD: [id number] LOCATION:[facility] ADMISSION DATE: 08/19/20 PROGRESS NOTE DATE OF SERVICE: 08/21/2020 SUBJECTIVE: The patient's case was discussed with staff. She has no new complaint. OBJECTIVE: The patient has no thoughts of self-harm and a euthymic mood. She is reading a novel and tells me about it. ASSESSMENT: 1. Major depression. 2. Alcohol abuse. PLAN: The patient showing no evidence of alcohol withdrawal and has no evidence of direct dangerousness. I think she can be transitioned out of the hospital soon if this level of improvement continues and her long-term well being will be entirely contingent upon her not drinking. TRANSINT:[id number] Voice Confirmation ID: [id number] DOCUMENT ID: [id number] ATTILA EARLY MD at 1159 CC: [id number] DICTATION DATE: 08/21/20 1643 CLINICAL STAFF PHARMACIST: 08/21/20 2310 ADM IN [id number] [place] [address]
--- NOTE | 2020-08-22 17:23 | NUR ---
PT EATING DINNER AT THIS TIME. PT IS ALERT TO PERSON, PLACE, TIME AND SITUATION. PT IS CALM AND COOPERATIVE. DENIES SI. PT CONTS TO C/O OF PAIN TO LEG. PT CONTS ON DROPLET ISOLATION PER SARS-19 PROTOCAL. COMPLIANT WITH MEDS, VITALS AND ASSESSMENTS. CAN MAKE NEEDS KNOWN. AMBULATES. WILL CONT PLAN OF CARE.
[2020-08-22 20:00] VITALS: BP 120/73
--- NOTE | 2020-08-22 22:06 | NUR ---
PT IS ALERT AND ORIENTED X4. RECEIVED IN HER ROOM SHE IS ON ISOLATION PENDING HER COVID RESULTS. CALM AND COOPERATIVE WITH STAFF. COMPLIANT WITH ALL MEDICATIONS. COMPLAINS OF BACK PAIN. ADMINISTERED PRN ULTRAM 50 MG. DENIES SI. EASY TO REDIRECT.,
--- NOTE | 2020-08-23 10:54 | NUR ---
SW MET WITH PT TO DISCUSS DISCHARGE PLANS. PT WILL FOLLOW UP WITH [facility] FOR OUTPATIENT TREATMENT. SHE HAS A THREE WEEK FOLLOW UP APPOINTMENT WITH DR ESTRADA TO CONTINUE HER MEDICATION REGIMEN. SHE WILL ALSO CONTACT HER SPONSOR AND ATTEND NA MEETINGS ON ZOOM. PT EXPRESSED NO OTHER NEEDS AT THIS TIME.
[2020-08-23] MEDS ORDERED: EFFEXOR100 MG PO (11:38)
--- NOTE | 2020-08-23 11:59 | NUR ---
PT CALLED HER SISTER TO ARRANGE PICK-UP TIME FOR D/C ON 08/24/2020. SHE AGREED TO PICK PT UP DUE TO [facility]S NOT RUNNING AT THIS TIME.
[2020-08-23 14:13] VITALS: BP 118/77
--- NOTE | 2020-08-23 18:10 | NUR ---
Rec'd patient this am up ambulating in the hallway. She is A/O times 3 to person, place, and situation. She took her meds whole and was compliant. She participated well in group/activities. She has been calm and cooperative and has DC plans for tomorrow. She can be directed and redirected.
--- NOTE | 2020-08-23 18:15 | NUR ---
Patient denies any signs of suicidal ideations.
[2020-08-23 20:00] VITALS: BP 112/75
--- NOTE | 2020-08-23 23:46 | NUR ---
PATIENT RECEIVED IN HER ROOM, READING A BOOK, SHE IS CALM, PLEASANT, DENIES SUICIDIAL THOUGHTS. COMPLIANT WITH HER MEDS. NO ADVERSE REACTION TO MEDS. WILL FOLLOW POC
[2020-08-24 09:16] VITALS: BP 137/89
--- NOTE | 2020-08-24 10:00 | NUR ---
ALERT, CALM, ORIENTED. STATED THAT SHE WAS READY TO DISCHARGE HOME. MEDS ADMIN PER MED NURSE WITH COMPLETE MED COMPLIANCE NOTED. NO ADVERSE BEHAVIORS. PATIENT SCHEDULED FOR DISCHARGE THIS SHIFT.
--- NOTE | 2020-08-24 11:16 | NUR ---
PT FAMILY CAN NOT PICK HER UP. NURSE AND PATIENT FOUND BUS ROUTE. PT STATED THAT SHE HAD THE MONEY FOR THE BUS. STAFF WILL ASSIST PT TO BUS STOP AT APPOPRIATE TIME.
--- NOTE | 2020-08-24 12:20 | NUR ---
NURSE ATTEMPTED TO REACH SPECIAL DELIVERY CARRIER TO CONFIRM DISTANCE STAFF CAN WALK PT TO THE BUS STOP FROM THE HOSPITAL GROUNDS. CASE MANAGEMENT GISSELLE STATED HOW FAR WE WERE ABLE TO GO. PT BELONGINGS GATHERED AND GIVEN TO PT. STAFF WALKED PT TO THE BUS STOP.
--- NOTE | 2020-08-24 12:30 | NUR ---
DISCHARGE TEACHING DONE AND MEDS REVIEWED WITH PATIENT. PERSONAL BELONGINGS RETURNED TO PATIENT. PATIENT DISCHARGED FROM UNIT AND ESCORTED TO THE EDGE OF PROPERTY TO THE [facility] BUS STOP PER LEARNING SERVICES COORDINATOR INSTRUCTIONS. PATIENT IN PLEASANT MOOD AND DENIES PAIN OR FURTHER NEEDS.
--- NOTE | 2020-08-26 13:27 | DS ---
PATIENT:GLORIA TORRES :51 MEDICAL RECORD: [id number] DISCHARGE SUMMARY ADMISSION DATE: 08/19/20 DISCHARGE DATE: 08/24/20 DATE OF SERVICE: 08/24/2020. IDENTIFYING DATA: The patient is a 65-year-old female and she was admitted to the hospital on a voluntary basis. CHIEF COMPLAINT: Suicidal ideation. HISTORY OF PRESENT ILLNESS: The patient presented to the Emergency Room and she was intoxicated. She said that she was going to kill herself and her plan was to take all of her medications. She was here in June of this year with an identical presentation. She stated that after she left after the last day that she did not drink for a couple of weeks and then started just having a couple of beers a day, but then it sort of grown into something that became out of control. She then stated that she felt regret for having done this. She has been in many substance abuse programs in the course of her adult life and she knows that if she would not drink that she would be unlikely to kill herself. She does talk about her vegetative depressive symptoms and feels her medications are not working and wants me to make changes. HOSPITAL COURSE: The patient was admitted to the hospital and fully evaluated from both a medical, psychological, and social standpoint. She was treated with both mood and thought stabilizing and memory enhancing medications. She did show improvement through the course of the hospitalization. She was discharged home for outpatient care and also to resume her Zoom NA meetings. At the time of discharge, she was not acutely dangerous to herself or others. She denied any suicidal ideation. The patient does have the hotline for and is able to articulate support. DISCHARGE DIAGNOSES: AXIS I: Major depression with moderate severity, recurrent, without psychotic features and alcohol abuse. AXIS II: Cluster B personality traits. AXIS III: Alcoholic cirrhosis, hypertension, chronic obstructive pulmonary disease, osteoarthritis. AXIS IV: Moderate stressors. AXIS V: Global assessment of functioning is 40. PLAN: At the time of discharge, the patient was in a stable mood. She was also able to articulate that she had no thoughts of harming herself or others. She was tolerating her medications. She also had a plan for followup for medication management and therapy including Zoom NA services. TRANSINT:[id number] Voice Confirmation ID: [id number] DOCUMENT ID: [id number] Dictated By: SIMI E BROWN I have interviewed/examined the above patient and agree with these documented findings. DISCHARGE SUMMARY REPORT [id number] GLORIA TORRES, ATTILA CHRISTIANSEN at 1327 CC: [id number] DICTATION DATE: 08/24/20 1351 WEATHERSTRIP MACHINE OPERATOR: 08/25/20 0408 DIS IN 08/24/20 [address] [address] [place] [id number]
--- NOTE | 2020-08-26 13:27 | PN ---
PATIENT:GLORIA TORRES MEDICAL RECORD: [id number] LOCATION:[facility] ADMISSION DATE: 08/19/20 PROGRESS NOTE DATE OF SERVICE: 08/22/2020 SUBJECTIVE: Mrs. Torres is a 65 years old. She is admitted to the hospital because of suicidal thoughts associated with alcoholism. She is eating well. She is sleeping poorly, but she does sleep some during the day. She is having no symptoms of alcohol withdrawal. ASSESSMENT: 1. Major depression. 2. Alcoholism. PLAN: The patient will be discharged in a day or two if this level of improvement continues. TRANSINT:[id number] Voice Confirmation ID: [id number] DOCUMENT ID: [id number] ATTILA EARLY MD at 1327 CC: [id number] DICTATION DATE: 08/22/20 183 CIRCUS SUPERVISOR: 08/22/20 2143 DIS IN 08/24/20 [facility] [address] [place] [address]
== END 2020-08-24 11:00 | disposition home or self-care (01) | DRG 881 ==
LOC: D.ER 12:55 → D.PSYCH 18:48
PROVIDERS: Family Medicine; ADMIT Psychiatry & Neurology Psychiatry; ATTEND Psychiatry & Neurology Psychiatry
DX: F32.9 Major depressive disorder, single episode, unspecified (principal); R45.851 Suicidal ideations; Z20.822 Contact with and (suspected) exposure to COVID-19; F10.20 Alcohol dependence, uncomplicated; F19.10 Other psychoactive substance abuse, uncomplicated; I25.10 Atherosclerotic heart disease of native coronary artery without angina pectoris; M19.90 Unspecified osteoarthritis, unspecified site; I10 Essential (primary) hypertension

== ENCOUNTER 2020-11-01 21:32 | Inpatient (IN) | payer MEDICARE ==
[~2020-11-01] VITALS: Ht 175.3 cm; Wt 54.9 kg
[~2020-11-01 21:32] MED LIST changes: +EFFEXOR100 MG PO
[2020-11-01 22:00] LABS: BASOPHILS 0.1 % (0-2); EOSINOPHILS 0 % (0-7); HEMATOCRIT 34.6 % (36.0-48.0); HEMOGLOBIN 11.8 g/dL (12-16); IMMATURE GRANULOCYTES 0.3 % (0-5); LYMPHOCYTE ABS# 2.21 10x3/uL (1.18-3.74); MCH 28.2 pg (26.0-34.0); MCHC 34.1 g/dL (31.0-37.0); MCV 82.8 fL (80.0-100.0); MEAN PLATELET VOLUME 9.7 fL (7.4-10.4); NEUTROPHILS 82.6 % (40-80); RBC 4.18 10x6/uL (4.00-5.40); RDW 14.1 % (11.5-14.5)
--- NOTE | 2020-11-01 22:00 | NUR ---
PT UNABLE TO SIT OR LAY STILL. PT MATTRESS MOVED TO FLOOR FOR PT SAFETY. PATIENT PROVIDED WATER AND DENIES FURTHER NEEDS.
[2020-11-01 22:10] LABS: CALC OSMOLALITY 289 mosm/kg (275-300); CALCIUM 9.3 mg/dL (8.5-10.1); CARBON DIOXIDE 17.2 mmol/L (21.0-32.0); CHLORIDE - SERUM 99 mmol/L (98-107); CREATININE - SERUM 4.9 mg/dL (0.6-1.3); GLUCOSE 88 mg/dL (74-106); POTASSIUM - SERUM 4.4 mmol/L (3.5-5.1); SODIUM 139 mmol/L (136-145); UREA NITROGEN 49 mg/dL (7-18); eGFR NON AFRICAN AMERICAN 9 mL/min (90-120)
[2020-11-01 22:14] LABS: PLATELET COUNT 253 10x3/uL (130-400)
[2020-11-01 22:35] LABS: ALBUMIN 4.2 g/dL (3.4-5.0); ALKALINE PHOSPHATASE 83 U/L (30-120); ALT (SGPT) 17 U/L (10-68); BILIRUBIN - TOTAL 1.04 mg/dL (0.2-1.3); CREATINE KINASE 470 UL (21-215); PROTEIN - SERUM 7.5 g/dL (6.4-8.2)
[2020-11-01 22:41] LABS: CKMB 10.6 U/L (0.0-3.6)
--- NOTE | 2020-11-01 23:30 | NUR ---
PT ASSISTED TO RESTROOM.
--- NOTE | 2020-11-02 00:29 | NUR ---
RN ADMINISTERED IM HALDOL AND ATIVAN ORDERED.
[2020-11-02 02:23] VITALS: BP 98/60
[2020-11-02 02:57] VITALS: BP 115/68; BMI 17.9
--- NOTE | 2020-11-02 03:37 | NUR ---
0240-- RECEIVED PT FROM ER PER STRETCHER. THIN, FRAIL APPEARING. DISHEVELED APPEARANCE PT SEDATE BUT ARROUSABLE TO VERBAL STIMULI JERKING MOVEMENTS NOTED TO BLE PT NOT ABLE TO ANSWER ANY QUESTIONS FOR ADMIT. HR RRR PPPX2 BILAT LUNGS DIMINISHED W/ EXPIRATORY WHEEZES. NS @ 75ML/HR TO RAC, PATENT WILL CONTINUE TO MONITOR CLOSELY BS X4
--- NOTE | 2020-11-02 07:00 | NUR ---
RECEIVED REPORT. ASSUMED CARE OF PATIENT. CALL LIGHT WITHIN REACH. PATIENT RESTING ON LEFT LATERAL SIDE WITH FREQUENT MOVEMENTS. BEDSIDE SHIFT REPORT COMPLETE, WHITE BOARD UPDATED. NO DISTRESS.
[2020-11-02 08:09] LABS: BASOPHILS 0 % (0-2); EOSINOPHILS 0.1 % (0-7); HEMATOCRIT 33.7 % (36.0-48.0); HEMOGLOBIN 11.5 g/dL (12-16); IMMATURE GRANULOCYTES 0.2 % (0-5); LYMPHOCYTE ABS# 1.21 10x3/uL (1.18-3.74); LYMPHOCYTES 8.4 % (15-50); MCH 28.5 pg (26.0-34.0); MCHC 34.1 g/dL (31.0-37.0); MCV 83.4 fL (80.0-100.0); MEAN PLATELET VOLUME 10.7 fL (7.4-10.4); MONOCYTES 10.6 % (2-11); NEUTROPHIL ABS# 11.68 10x3/uL (1.56-6.13); NEUTROPHILS 80.7 % (40-80); PLATELET COUNT 224 10x3/uL (130-400); RBC 4.04 10x6/uL (4.00-5.40); RDW 14.4 % (11.5-14.5); WBC 14.5 10x3/uL (4.8-10.8)
[2020-11-02 08:26] VITALS: BP 105/56
[2020-11-02 08:26] LABS: ALBUMIN 3.6 g/dL (3.4-5.0); ANION GAP 24.2 mmol/L (8-16); BILIRUBIN - TOTAL 0.86 mg/dL (0.2-1.3); CALCIUM 8.1 mg/dL (8.5-10.1); CARBON DIOXIDE 19.8 mmol/L (21.0-32.0); CREATININE - SERUM 4.9 mg/dL (0.6-1.3); MAGNESIUM - SERUM 2.4 mg/dL (1.8-2.4); PROTEIN - SERUM 6.8 g/dL (6.4-8.2)
[2020-11-02 08:36] LABS: PHOSPHOROUS 9.4 mg/dL (2.5-4.9)
--- NOTE | 2020-11-02 09:30 | NUR ---
[facility] REFUSED. EDUCATION PROVIDED TO WHAT AND WHY WE USE THIS DEVICE. PATIENT TREMORING IN ALL EXTREMITIES AND STATES SHE DOESN'T WANT THEM IF SHE DOESN'T HAVE TO WEAR THEM. EXPLAINED IT IS ENCOURAGED BUT NOT MANDATORY SHE CAN REFUSE ANY AND ALL CARES OFFERED. PATIENT RESTING WELL/PEACEFUL AT THIS TIME. NO DISTRESS.
[2020-11-02 12:00] VITALS: BP 87/50
--- NOTE | 2020-11-02 13:10 | NUR ---
ATTEMPTED TO IN-AND-OUT CATH ON PATIENT TO RECEIVE URINE SAMPLE. NO URINE OBTAINED. ONLY SMALL AMOUNT IN COLLECTION TUBE. NOT ENOUGH URINE TO SUBMIT TO LAB. IV FLUIDS INFUSING, ENCOURAGED PATEINT TO INCREASE PO CONSUMTION. PATIENT NOW RESTING WITH EYES CLOSED ON RIGHT LATERAL SIDE. NO DISTRESS.
[2020-11-02 13:19] VITALS: Ht 175.3 cm; Wt 54.9 kg
[2020-11-02 15:23] LABS: ANION GAP 23.5 mmol/L (8-16); CALCIUM 7.4 mg/dL (8.5-10.1); CARBON DIOXIDE 16.3 mmol/L (21.0-32.0); CREATININE - SERUM 4.4 mg/dL (0.6-1.3); POTASSIUM - SERUM 3.8 mmol/L (3.5-5.1)
[2020-11-02 15:30] VITALS: BP 101/53
--- NOTE | 2020-11-02 16:02 | NUR ---
LR BOLUS INFUSING AT THIS TIME. BP 101/58.
--- NOTE | 2020-11-02 17:13 | NUR ---
RESTING WITH EYES CLOSED, BOLUS CONTINUES TO INFUSE. NO DISTRESS. CALL LIGHT WITHIN REACH.
--- NOTE | 2020-11-02 17:43 | NUR ---
THIS ROLL UP MACHINE OPERATOR LOANED THE UNIT CELL BLOCK AND CHARGING CABLE TO PATIENT IN ORDER TO CHARGE HER PHONE. TOELRATING FLUIDS WELL. CONTINUES TO REST WITH EYES CLOSED, EASILY AROUSED. NO DISTRESS.
[2020-11-02 21:46] VITALS: BP 115/60
[2020-11-03 00:15] VITALS: BP 127/71
[2020-11-03 05:35] VITALS: BP 130/72
[2020-11-03 06:34] LABS: BASOPHILS 0 % (0-2); EOSINOPHILS 0 % (0-7); HEMATOCRIT 29.3 % (36.0-48.0); HEMOGLOBIN 9.8 g/dL (12-16); IMMATURE GRANULOCYTES 0.1 % (0-5); LYMPHOCYTE ABS# 0.99 10x3/uL (1.18-3.74); LYMPHOCYTES 13.7 % (15-50); MCHC 33.4 g/dL (31.0-37.0); MCV 83.7 fL (80.0-100.0); MEAN PLATELET VOLUME 10.5 fL (7.4-10.4); MONOCYTES 10.5 % (2-11); NEUTROPHIL ABS# 5.45 10x3/uL (1.56-6.13); NEUTROPHILS 75.7 % (40-80); PLATELET COUNT 186 10x3/uL (130-400); RDW 14.7 % (11.5-14.5); WBC 7.2 10x3/uL (4.8-10.8)
[2020-11-03 06:54] LABS: ANION GAP 14.7 mmol/L (8-16); CALCIUM 7.7 mg/dL (8.5-10.1); POTASSIUM - SERUM 3.4 mmol/L (3.5-5.1)
[2020-11-03 06:57] LABS: CARBON DIOXIDE 20.7 mmol/L (21.0-32.0); CREATININE - SERUM 2.8 mg/dL (0.6-1.3)
--- NOTE | 2020-11-03 07:00 | NUR ---
RECEIVED REPORT. ASSUMED CARE OF PATIENT. PATIENT RESTING WITH EYES CLOSED, EASILY AROUSED. WHITE BOARD UPDATED, BEDSIDE SHIFT REPORT COMPLETE. NO DISTRESS. REPORTED PATEINT IS NOW MAKING URINE BUT IS INCONTINENT AT TIMES. CALL LIGHT WITHIN REACH.
--- NOTE | 2020-11-03 07:15 | NUR ---
STRAIGHT CATH PATIENT VIA STERILE TECHNIQUE TO OBTAIN URINE SPECIMEN, URINE SENT TO LAB AT 0710.
[2020-11-03 07:30] LABS: MAGNESIUM - SERUM 2.2 mg/dL (1.8-2.4)
[2020-11-03 07:31] LABS: CREATININE - SERUM 2.6 mg/dL (0.6-1.3); PHOSPHOROUS 3.7 mg/dL (2.5-4.9); POTASSIUM - SERUM 3.3 mmol/L (3.5-5.1)
[2020-11-03 07:32] LABS: ALBUMIN 2.6 g/dL (3.4-5.0); ANION GAP 15.6 mmol/L (8-16); BILIRUBIN - TOTAL 0.7 mg/dL (0.2-1.3); CARBON DIOXIDE 20.7 mmol/L (21.0-32.0); PROTEIN - SERUM 5.4 g/dL (6.4-8.2); VANCOMYCIN - RANDOM 13.1 ug/mL (10.0-20.0)
[2020-11-03 07:32] LABS: BILIRUBIN NEGATIVE (NEGATIVE); KETONE SMALL mg/dL (NEGATIVE); NITRITE NEGATIVE (NEGATIVE); UROBILINOGEN NORMAL mg/dL (< 2)
[2020-11-03 07:35] LABS: BACTERIA FEW HPF (NONE SEEN); SQUAMOUS EPITHELIAL 0-5 HPF (0-4); WHITE CELLS - URINE 0-5 HPF (0-4)
[2020-11-03 07:46] LABS: UDS - AMPHET POSITIVE QUAL (NEGATIVE); UDS - BARB NEGATIVE QUAL (NEGATIVE); UDS - BENZO NEGATIVE QUAL (NEGATIVE); UDS - COCAINE NEGATIVE QUAL (NEGATIVE); UDS - OPIATE NEGATIVE QUAL (NEGATIVE); UDS - PCP NEGATIVE QUAL (NEGATIVE); UDS - THC NEGATIVE QUAL (NEGATIVE)
[2020-11-03 08:00] VITALS: BP 141/81
--- NOTE | 2020-11-03 11:57 | NUR ---
WAITING FOR LAB TO BRING UP IV DIFLUCAN...
[2020-11-03 12:00] VITALS: BP 138/85
[2020-11-03 16:01] VITALS: BP 133/81
--- NOTE | 2020-11-03 16:24 | NUR ---
20 GAUGE IV PLACED TO LEFT WRIST X 1 STICK. GOOD BLOOD RETURN, EASY FLUSH. PATIENT TOLERATED IV PLACEMENT WELL. IV TAPED,DATED AND SECURED WELL. IV FLUIDS INFUSING ORDERED AT THIS TIME. 20 GAUGE IV FOUND LYING IN BED WITH PATIENT. CATHETER TIP INTACT. NO BLEEDING FROM SITE. NEW LINENS PROVIDED. NO DISTRESS. BANDAID APPLIED TO AREA.
--- NOTE | 2020-11-03 17:20 | NUR ---
ALTERNATIVE DIET PROVIDED TO PATIENT SHE WOULD NOT EAT WHAT WAS SERVED TO HER. NO DISTRESS. PATIENT CONSUMING PM MEAL AT THIS TIME.
--- NOTE | 2020-11-03 18:15 | NUR ---
RESTING IN BED WITH EYES CLOSED. RESP EVEN AND UNLABORED. NO DISTRESS. IV FLUIDS INFUSING ORDERED.
--- NOTE | 2020-11-03 18:45 | NUR ---
pt resting in bed awake, alert denies issues, assumed care at thsi time. pt with no acute distress will continue to monitor
[2020-11-03 20:00] VITALS: BP 137/87
--- NOTE | 2020-11-03 21:05 | NUR ---
2100 meds given, pt ambulated to BR without assist, voided and returned self to bed. denies any issues. will continue to monitor
[2020-11-04 01:26] VITALS: BP 142/57
--- NOTE | 2020-11-04 05:16 | NUR ---
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
[2020-11-04 05:25] VITALS: BP 122/106
[2020-11-04 05:49] VITALS: BP 129/67
[2020-11-04 07:04] LABS: BASOPHILS 0 % (0-2); EOSINOPHILS 0 % (0-7); HEMATOCRIT 28.5 % (36.0-48.0); HEMOGLOBIN 9.4 g/dL (12-16); LYMPHOCYTES 21.2 % (15-50); MCH 27.6 pg (26.0-34.0); MCV 83.8 fL (80.0-100.0); MEAN PLATELET VOLUME 10.4 fL (7.4-10.4); MONOCYTES 12.7 % (2-11); NEUTROPHIL ABS# 2.81 10x3/uL (1.56-6.13); NEUTROPHILS 66.1 % (40-80); PLATELET COUNT 185 10x3/uL (130-400)
[2020-11-04 07:05] LABS: WBC 4.3 10x3/uL (4.8-10.8)
--- NOTE | 2020-11-04 07:20 | NUR ---
RECIEVE REPORT. RESTING IN BED WITH EYES CLOSED. NO SIGNS OF DISTRESS. CONTINUE PLAN OF CARE AND SAFETY PRECAUTIONS.
[2020-11-04 07:23] LABS: ALBUMIN 2.5 g/dL (3.4-5.0); ANION GAP 12.1 mmol/L (8-16); BILIRUBIN - TOTAL 0.49 mg/dL (0.2-1.3); CALCIUM 8.2 mg/dL (8.5-10.1); CARBON DIOXIDE 23.1 mmol/L (21.0-32.0); POTASSIUM - SERUM 3.2 mmol/L (3.5-5.1); PROTEIN - SERUM 5.5 g/dL (6.4-8.2); VANCOMYCIN - RANDOM 15.9 ug/mL (10.0-20.0)
[2020-11-04 13:38] VITALS: BP 152/90
[2020-11-04] MEDS ORDERED: BUSPAR 15 MG TA15 MG PO (13:55)
[2020-11-04] MEDS ORDERED: CELEXA20 MG PO (13:55)
[2020-11-04] MEDS ORDERED: CIPRO500 MG PO (13:58)
--- NOTE | 2020-11-04 16:36 | NUR ---
ALERT AND ORIENTED X4. SITTING UP IN BED. DC LT HAND IV TIP INTACT. BUS VOUCHER PROVIDED. DISCHARGE INSTRUCTIONS GIVEN VERBALLY AND WRITTEN. DISCHARGE PAPERS SIGNED ON CHART. ESCORT TO RIDE VIA WHEELCHAIR. REMAINS FREE FROM INJURY.
== END 2020-11-04 16:41 | disposition home or self-care (01) | DRG 682 ==
LOC: D.ER 21:32 → D.M2 11-02 00:37
PROVIDERS: Emergency Medicine; Internal Medicine; ADMIT Emergency Medicine; ATTEND Emergency Medicine
DX: N17.9 Acute kidney failure, unspecified (principal); G93.41 Metabolic encephalopathy; F17.203 Nicotine dependence unspecified, with withdrawal; B37.49 Other urogenital candidiasis; E86.0 Dehydration; F15.10 Other stimulant abuse, uncomplicated; J44.9 Chronic obstructive pulmonary disease, unspecified; D64.9 Anemia, unspecified; I10 Essential (primary) hypertension; F41.8 Other specified anxiety disorders; I25.10 Atherosclerotic heart disease of native coronary artery without angina pectoris; K74.60 Unspecified cirrhosis of liver; F41.1 Generalized anxiety disorder; K73.9 Chronic hepatitis, unspecified; I95.2 Hypotension due to drugs